=== PATIENT | female | born 1935 | race African-American/Black ===

== ENCOUNTER → 2016-08-05 | Outpatient (CLI) | payer MEDICARE, OTHER | LOC: RAD 14:50 | PROVIDERS: ATTEND Internal Medicine Medical Oncology | DX: C18.9 Malignant neoplasm of colon, unspecified (principal); C49.A0 Gastrointestinal stromal tumor, unspecified site | CPT/HCPCS: 71260; 74160; 82565 ==

== ENCOUNTER 2016-08-24 14:36 | Emergency (ER) | payer MEDICARE, OTHER ==
[2016-08-24] MEDS ORDERED: ONDANSETRON HCL INJ/PF 4 MG/2 ML SDV IV ONE (15:10)
[2016-08-24] MEDS ORDERED: NORMAL SALINE 1000 ML 1,000 ML IV ONE (15:10)
--- NOTE | 2016-08-24 15:33 | ER Document Report ---
ED GI/ - General Mode of Arrival: Medic Information source: Patient, Relative TRAVEL OUTSIDE OF THE [place] IN LAST 30 DAYS: No - HPI Patient complains to provider of: Abdominal pain, Vomiting Onset: This morning - [id number] Location: LUQ, RUQ Associated symptoms: Other - see above <AGUSTIN AMBRIZ - Last Filed: 08/24/16 15:24> <REAL CRABTREE - Last Filed: 08/24/16 19:55> - General Chief Complaint: Abdominal Pain Stated Complaint: NAUSEA AND VOMITING Notes: 80 year old female with history of Gastrointestinal Stromal Tumor presents to the ED via EMS complaining of nausea, vomiting, and bilateral upper abdominal pain that started this morning at approximately [id number]. Daughter states that the patient was seen by her primary provider and given a shot of phenegran, when the patient didn't improve EMS was called and the patient was brought to the ED. Patient states that she was vomiting on her way to the ED, and currently states that she is nauseous. Patient explains that her last bowel movement was yesterday and it was loose. Patient's granddaughter visited the patient 5 days ago and was seen in the ED yesterday for a "virus." Patient was seen in the ED in April 2016 for a subdural bleed. Patient was taken off her blood thinning medication at the time and is currently taking aspirin. (AGUSTIN AMBRIZ) - Related Data Allergies/Adverse Reactions: lisinopril [From Zestril] Allergy (Intermediate, Verified 08/24/16 15:08) Edema Past Medical History - General Information source: Patient - Social History Smoking Status: Unknown if Ever Smoked Family History: Reviewed & Not Pertinent - Past Medical History Cardiac Medical History: Reports: Hx Atrial Fibrillation, Hx Hypercholesterolemia, Hx Hypertension Endocrine Medical History: Reports: Hx Diabetes Mellitus Type 2 Malignancy Medical History: Reports: Hx Colorectal Cancer - [facility] Medical History: Reports: Hx Gastroesophageal Reflux Disease Psychiatric Medical History: Reports: Hx Depression Past Surgical History: Reports: Hx Appendectomy, Hx Bowel Surgery, Hx Hysterectomy - Immunizations Hx Diphtheria, Pertussis, Tetanus Vaccination: No Hx Pneumococcal Vaccination: 07/14/12 <AGUSTIN AMBRIZ - Last Filed: 08/24/16 15:24> Review of Systems - Review of Systems Constitutional: No symptoms reported EENT: No symptoms reported Cardiovascular: No symptoms reported Respiratory: No symptoms reported Gastrointestinal: See HPI, Abdominal pain - bilateral upper, Nausea, Vomiting, Last bowel movement - yesterday; loose Genitourinary: No symptoms reported Female Genitourinary: No symptoms reported Musculoskeletal: No symptoms reported Skin: No symptoms reported Hematologic/Lymphatic: No symptoms reported Neurological/Psychological: No symptoms reported -: Yes All other systems reviewed and negative <AGUSTIN AMBRIZ - Last Filed: 08/24/16 15:24> Physical Exam - General General appearance: Alert In distress: None - HEENT Head: Normocephalic, Atraumatic Eyes: Normal Extraocular movements intact: Yes Pupils: PERRL - Respiratory Respiratory status: No respiratory distress Breath sounds: Normal - Cardiovascular Rhythm: Regular Heart sounds: Normal auscultation - Abdominal Inspection: Normal Distension: No distension - resonate to percussion Bowel sounds: Hypoactive Tenderness: Tender - Tense and minimally tender to the upper abdomen. - Back Back: Normal - Extremities General upper extremity: Normal inspection, Normal ROM General lower extremity: Normal inspection, Normal ROM - Neurological Neuro grossly intact: Yes - Psychological Associated symptoms: Normal affect, Normal mood - Skin Skin Temperature: Warm Skin Moisture: Dry Skin Color: Normal <AGUSTIN AMBRIZ - Last Filed: 08/24/16 15:24> <REAL CRABTREE - Last Filed: 08/24/16 19:55> - Vital signs Vitals: Temp 98.5 F 08/24/16 14:55 (AGUSTIN AMBRIZ) (REAL CRABTREE) Course - Laboratory Result Diagrams: 08/24/16 14:46 08/24/16 14:46 <AGUSTIN AMBRIZ - Last Filed: 08/24/16 15:24> - Laboratory Result Diagrams: 08/24/16 14:46 08/24/16 16:20 <REAL CRABTREE - Last Filed: 08/24/16 19:55> - Re-evaluation Re-evalutation: 08/24/16 19:53 Patient reports she had large results from the enema and does feel much better. She is actually quite hungry now. (REAL CRABTREE) - Vital Signs Vital signs: Temp Pulse Resp BP Pulse Ox 98.5 F 24 H 138/73 H 96 08/24/16 14:55 08/24/16 19:01 08/24/16 19:01 08/24/16 19:01 (AGUSTIN AMBRIZ) (REAL CRABTREE) - Laboratory Laboratory results interpreted by me: 08/24/16 08/24/16 08/24/16 14:46 16:20 17:16 RBC 3.42 L Hgb 10.5 L Hct 31.9 L RDW 15.7 H Seg Neutrophils % 80.3 H Lymphocytes % 10.8 L Glucose 116 H Albumin 3.4 L Urine Protein 30 H Ur Leukocyte Esterase TRACE H (REAL CRABTREE) Discharge <AGUSTIN AMBRIZ - Last Filed: 08/24/16 15:24> <REAL CRABTREE - Last Filed: 08/24/16 19:55> - Discharge Clinical Impression: Nausea and vomiting Qualifiers: Vomiting type: unspecified Vomiting Intractability: non-intractable Qualified Code(s): R11.2 - Nausea with vomiting, unspecified Abdominal pain Qualifiers: Abdominal location: generalized Qualified Code(s): R10.84 - Generalized abdominal pain Constipation Qualifiers: Constipation type: unspecified constipation type Qualified Code(s): K59.00 - Constipation, unspecified Condition: Stable Disposition: HOME, SELF-CARE Additional Instructions: Your lab tests were normal today. Your symptoms may be due to a virus, or may all have been due to constipation. Try taking a dose of MiraLAX every day for the next week and drinking plenty of water. Follow-up with your doctor in the next few days if not continuing to improve. RETURN TO THE EMERGENCY ROOM IF ANY NEW OR WORSENING SYMPTOMS. Scribe Attestation: 08/24/16 19:55 I personally performed the services described in the documentation, reviewed and edited the documentation which was dictated to the scribe in my presence, and it accurately records my words and actions. (REAL CRABTREE) Scribe Documentation - Scribe Written by Sabiha:: Sabiha Matias, 08/24/2016 1535 acting as scribe for :: Renu <AGUSTIN AMBRIZ - Last Filed: 08/24/16 15:24>
[2016-08-24 15:35] LABS: ABSOLUTE EOSINOPHILS # (AUTO) 0.1 10^3/uL (0.0-0.6); ABSOLUTE LYMPHOCYTES (AUTO) 0.7 10^3/uL (0.5-4.7); ABSOLUTE MONOCYTES (AUTO) 0.5 10^3/uL (0.1-1.4); ABSOLUTE NEUT (AUTO) 5.5 10^3/uL (1.7-8.2); BASOPHILS % (AUTO) 0.4 % (0-2); EOSINOPHILS % (AUTO) 1.3 % (0-6); HEMATOCRIT 31.9 % (36.0-47.0); HEMOGLOBIN 10.5 g/dL (12.0-15.5); HGB HCT DIFFERENCE -0.4; LYMPHOCYTES % (AUTO) 10.8 % (13-45); MEAN CORPUSCULAR HEMOGLOBIN 30.8 pg (27.0-33.4); MEAN CORPUSCULAR VOLUME 93 fl (80-97); MONOCYTES % (AUTO) 7.2 % (3-13); RED BLOOD COUNT 3.42 10^6/uL (3.72-5.28); RED CELL DISTRIBUTION WIDTH 15.7 % (11.5-14.0); SEGMENTED NEUTROPHILS % (AUTO) 80.3 % (42-78); WHITE BLOOD COUNT 6.9 10^3/uL (4.0-10.5)
[2016-08-24 17:02] LABS: ALANINE AMINOTRANSFERASE 29 U/L (9-52); ALBUMIN 3.4 g/dL (3.5-5.0); ALKALINE PHOSPHATASE 69 U/L (38-126); ANION GAP 11 (5-19); ASPARTATE AMINO TRANSFERASE 25 U/L (14-36); BILIRUBIN,TOTAL 0.4 mg/dL (0.2-1.3); BLOOD UREA NITROGEN 11 mg/dL (7-20); CALCIUM 9.2 mg/dL (8.4-10.2); CARBON DIOXIDE 27 mmol/L (22-30); CHLORIDE 107 mmol/L (98-107); CREATININE RESULT 0.79 mg/dL (0.52-1.25); LIPASE 152.6 U/L (23-300); MAGNESIUM 2.1 mg/dL (1.6-2.3); POTASSIUM 3.6 mmol/L (3.6-5.0); SODIUM 144.5 mmol/L (137-145); TOTAL PROTEIN 6.3 g/dL (6.3-8.2)
[2016-08-24 17:03] LABS: GLUCOSE 116 mg/dL (75-110)
[2016-08-24] MEDS ORDERED: MINERAL OIL 30 ML UDCUP PR ONE (17:47)
[2016-08-24 18:07] LABS: APPEARANCE,URINE SLIGHTLY-CLOUDY; BILIRUBIN,URINE NEGATIVE (NEGATIVE); GLUCOSE, URINE NEGATIVE (NEGATIVE); KETONES,URINE NEGATIVE (NEGATIVE); LEUKOCYTE ESTERASE,URINE TRACE (NEGATIVE); NITRITE,URINE NEGATIVE (NEGATIVE); PROTEIN,URINE 30 mg/dL (NEGATIVE); URINE SPECIFIC GRAVITY 1.012; UROBILINOGEN,URINE NEGATIVE mg/dL (<2.0)
[2016-08-24 20:31] VITALS: BP 141/62
== END 2016-08-24 20:25 | disposition home or self-care (01) ==
LOC: ER 14:36
DX: K59.00 Constipation, unspecified (principal); R11.2 Nausea with vomiting, unspecified; R10.84 Generalized abdominal pain
CPT/HCPCS: 99284; 96361; 96374; 36415; 83690; 83735; 85025; 80053; 81001; 74022; J3490; J2405; J7030

== ENCOUNTER 2016-09-09 12:19 | Emergency (ER) | payer MEDICARE, OTHER ==
--- NOTE | 2016-09-09 12:34 | ER Document Report ---
ED Medical Screen (RME) - General Chief Complaint: Leg Swelling Stated Complaint: WEAKNESS Mode of Arrival: Wheelchair Information source: Patient Notes: 80 y/o F presents to ED referred by pcp for generalized weakness and bilateral lower leg pain and swelling. Denies fever or chest pain. I have greeted and performed a rapid initial assessment of this patient. A comprehensive ED assessment and evaluation of the patient, analysis of test results and completion of the medical decision making process will be conducted by additional ED providers. TRAVEL OUTSIDE OF THE [place] IN LAST 30 DAYS: No - Related Data Allergies/Adverse Reactions: lisinopril [From Zestril] Allergy (Intermediate, Verified 09/09/16 12:29) Edema Past Medical History - Social History Chew tobacco use (# tins/day): No Frequency of alcohol use: None Drug Abuse: None Family history: None - Past Medical History Cardiac Medical History: Reports: Hx Atrial Fibrillation, Hx Hypercholesterolemia, Hx Hypertension Denies: Hx Coronary Artery Disease, Hx Heart Attack Pulmonary Medical History: Denies: Hx Asthma, Hx Bronchitis, Hx COPD, Hx Pneumonia Neurological Medical History: Denies: Hx Cerebrovascular Accident, Hx Seizures Endocrine Medical History: Reports: Hx Diabetes Mellitus Type 2 Renal/ Medical History: Denies: Hx Peritoneal Dialysis Malignancy Medical History: 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 Denies: Hx Hepatitis, Hx Hiatal Hernia, Hx Ulcer Musculoskeltal Medical History: Denies Hx Arthritis Psychiatric Medical History: Reports: Hx Depression Infectious Medical History: Denies: Hx Hepatitis Past Surgical History: Reports: Hx Appendectomy, Hx Bowel Surgery, Hx Hysterectomy. Denies: Hx Mastectomy, Hx Open Heart Surgery, Hx Pacemaker - Immunizations Hx Diphtheria, Pertussis, Tetanus Vaccination: No Physical Exam - Vital signs Vitals: Temp Pulse Resp BP Pulse Ox 97.8 F 91 16 121/50 L 98 09/09/16 12:09/09/16 12:09/09/16 12:09/09/16 12:09/09/16 12:29 - General General appearance: Appears well, Alert In distress: None - Respiratory Respiratory status: No respiratory distress Course - Vital Signs Vital signs: Temp Pulse Resp BP Pulse Ox 97.8 F 91 16 121/50 L 98 09/09/16 12:09/09/16 12:29 09/09/16 12:29 09/09/16 12:29 09/09/16 12:29
--- NOTE | 2016-09-09 13:11 | ER Document Report ---
ED Extremity Problem, Lower - General Chief Complaint: Leg Swelling Stated Complaint: WEAKNESS Mode of Arrival: Wheelchair Information source: Patient, Relative Notes: Patient presents complaining of bilateral lower extremity swelling off and on for the past 2 months. Patient also states she's had leg pain off and on for the past 2 months. Patient was seen her technology architect today to have her nails trimmed and her technology architect was concerned about the swelling and wanted her to come for a Doppler study of the right lower extremity. Patient denies any chest pain or shortness of breath. TRAVEL OUTSIDE OF THE [place] IN LAST 30 DAYS: No - HPI Patient complains to provider of: Pain, Swelling Location: Leg Occurred: Other - 2 months Quality of pain: Achy Pain Level: 1 Context: denies: Recent immobilization, Recent surgery, Recent travel Recent injury: No Associated symptoms: denies: Chest pain, Chills, Fainting, Fever, Painful ambulation, Unable to bear weight Exacerbated by: Nothing Relieved by: Nothing - Related Data Allergies/Adverse Reactions: lisinopril [From Zestril] Allergy (Intermediate, Verified 09/09/16 12:29) Edema Past Medical History - General Information source: Patient - Social History Smoking Status: Never Smoker Chew tobacco use (# tins/day): No Frequency of alcohol use: None Drug Abuse: None Occupation: none Lives with: Family Family History: Reviewed & Not Pertinent Patient has suicidal ideation: No Patient has homicidal ideation: No - Past Medical History Cardiac Medical History: Reports: Hx Atrial Fibrillation, Hx Hypercholesterolemia, Hx Hypertension Denies: Hx Coronary Artery Disease, Hx Heart Attack Pulmonary Medical History: Denies: Hx Asthma, Hx Bronchitis, Hx COPD, Hx Pneumonia Neurological Medical History: Denies: Hx Cerebrovascular Accident, Hx Seizures Endocrine Medical History: Reports: Hx Diabetes Mellitus Type 2 Renal/ Medical History: Denies: Hx Peritoneal Dialysis Malignancy Medical History: 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 Denies: Hx Hepatitis, Hx Hiatal Hernia, Hx Ulcer Musculoskeltal Medical History: Denies Hx Arthritis Psychiatric Medical History: Reports: Hx Depression Infectious Medical History: Denies: Hx Hepatitis Past Surgical History: Reports: Hx Appendectomy, Hx Bowel Surgery, Hx Hysterectomy. Denies: Hx Mastectomy, Hx Open Heart Surgery, Hx Pacemaker - Immunizations Hx Diphtheria, Pertussis, Tetanus Vaccination: No Hx Pneumococcal Vaccination: 07/14/12 Review of Systems - Review of Systems Constitutional: No symptoms reported. denies: Fever, Recent illness EENT: No symptoms reported Cardiovascular: Edema. denies: Chest pain, Dizziness, Lightheaded Respiratory: No symptoms reported. denies: Cough, Short of breath Gastrointestinal: No symptoms reported. denies: Abdominal pain, Diarrhea, Nausea, Vomiting Genitourinary: No symptoms reported Female Genitourinary: No symptoms reported Musculoskeletal: Muscle pain - Bilateral lower extremity. denies: Back pain Skin: No symptoms reported Hematologic/Lymphatic: No symptoms reported Neurological/Psychological: No symptoms reported Physical Exam - Vital signs Vitals: Temp Pulse Resp BP Pulse Ox 97.8 F 91 16 121/50 L 98 09/09/16 12:29 09/09/16 12:29 09/09/16 12:29 09/09/16 12:29 09/09/16 12:29 - General General appearance: Appears well, Alert In distress: None - HEENT Head: Normocephalic, Atraumatic Nasal: Normal Mouth/Lips: Normal Mucous membranes: Normal Neck: Normal, Supple. No: Lymphadenopathy - Respiratory Respiratory status: No respiratory distress Chest status: Nontender Breath sounds: Normal. No: Rales, Rhonchi, Stridor, Wheezing Chest palpation: Normal - Cardiovascular Rhythm: Regular Heart sounds: S1 appreciated, S2 appreciated Murmur: No - Abdominal Inspection: Obese Bowel sounds: Normal Tenderness: Nontender - Back Back: Normal. No: CVA tenderness, Vertebra tenderness - Extremities General upper extremity: Normal inspection, Normal ROM General lower extremity: Edema - 2+ bilateral lower extremity, Normal ROM - Neurological Neuro grossly intact: Yes Cognition: Normal Luis Felipe Coma Scale Eye Opening: Spontaneous Luis Felipe Coma Scale Verbal: Oriented Luis Felipe Coma Scale Motor: Obeys Commands [place] Coma Scale Total: 15 - Psychological Associated symptoms: Normal affect, Normal mood - Skin Skin Temperature: Warm Skin Moisture: Dry Course - Re-evaluation Re-evalutation: 09/09/16 13:[address] Abbasi regarding patient presentation and diagnostic evaluation. Recommends obtaining chest x-ray, BNP as well as bilateral lower extremity Doppler 09/09/16 16:00 Dr. Hdz called stating that Doppler study was negative for DVT. 09/09/16 16:[address] Piramzadian regarding patient's diagnostic test results agrees with discharge plan of care. Family at bedside, discussed with daughter results of patient's diagnostic evaluation. Discussed plan of care with patient and daughter. Recommend decrease in sodium in diet and wearing support hose to help with peripheral edema. - Vital Signs Vital signs: Temp Pulse Resp BP Pulse Ox 98.5 F 89 18 120/54 L 99 09/09/16 16:49 09/09/16 16:49 09/09/16 16:49 09/09/16 16:49 09/09/16 16:49 - Laboratory Result Diagrams: 09/09/16 12:35 09/09/16 12:35 Laboratory results interpreted by me: 09/09/16 09/09/16 09/09/16 12:35 12:35 12:40 RBC 3.20 L Hgb 9.9 L Hct 29.9 L RDW 15.5 H Est GFR (Non-Af Amer) 57 L Urine Protein 30 H Ur Leukocyte Esterase TRACE H Labs- Entire Visit 09/09/16 09/09/16 09/09/16 12:35 12:35 12:40 WBC 4.5 RBC 3.20 L Hgb 9.9 L Hct 29.9 L MCV 93 MCH 30.9 MCHC 33.1 RDW 15.5 H Plt Count 342 Seg Neutrophils % 59.4 Lymphocytes % 26.8 Monocytes % 8.4 Eosinophils % 4.3 Basophils % 1.1 Absolute Neutrophils 2.6 Absolute Lymphocytes 1.2 Absolute Monocytes 0.4 Absolute Eosinophils 0.2 Absolute Basophils 0.0 PT INR APTT Sodium 142.6 Potassium 3.6 Chloride 102 Carbon Dioxide 29 Anion Gap 12 BUN 10 Creatinine 0.95 Est GFR ( Amer) > 60 Est GFR (Non-Af Amer) 57 L Glucose 99 Calcium 9.6 Total Bilirubin 0.5 Direct Bilirubin 0.0 AST 27 ALT 28 Alkaline Phosphatase 58 NT-Pro-B Natriuret Pep Total Protein 6.3 Albumin 3.8 Urine Color YELLOW Urine Appearance SLIGHTLY-CLOUDY Urine pH 5.0 Ur Specific [place] 1.013 Urine Protein 30 H Urine Glucose (UA) NEGATIVE Urine Ketones NEGATIVE Urine Blood NEGATIVE Urine Nitrite NEGATIVE Urine Bilirubin NEGATIVE Urine Urobilinogen NEGATIVE Ur Leukocyte Esterase TRACE H Urine WBC (Auto) 1 Urine RBC (Auto) 0 Squamous Epi Cells Auto 1 Urine Mucus (Auto) RARE Urine Ascorbic Acid NEGATIVE 09/09/16 09/09/16 12:40 12:40 WBC RBC Hgb Hct MCV MCH MCHC RDW Plt Count Seg Neutrophils % Lymphocytes % Monocytes % Eosinophils % Basophils % Absolute Neutrophils Absolute Lymphocytes Absolute Monocytes Absolute Eosinophils Absolute Basophils PT 14.0 INR 1.04 APTT 29.7 Sodium Potassium Chloride Carbon Dioxide Anion Gap BUN Creatinine Est GFR ( Amer) Est GFR (Non-Af Amer) Glucose Calcium Total Bilirubin Direct Bilirubin AST ALT Alkaline Phosphatase NT-Pro-B Natriuret Pep 171 Total Protein Albumin Urine Color Urine Appearance Urine pH Ur Specific [place] Urine Protein Urine Glucose (UA) Urine Ketones Urine Blood Urine Nitrite Urine Bilirubin Urine Urobilinogen Ur Leukocyte Esterase Urine WBC (Auto) Urine RBC (Auto) Squamous Epi Cells Auto Urine Mucus (Auto) Urine Ascorbic Acid - Diagnostic Test Radiology reviewed: Reports reviewed Discharge - Discharge Clinical Impression: Peripheral edema Condition: Stable Disposition: HOME, SELF-CARE Instructions: Edema, Peripheral ([facility]) Additional Instructions: Return immediately for any new or worsening symptoms Followup with your primary care provider, call tomorrow to make a followup appointment Follow up with Dr. Chicas for recheck. Your Doppler test did not show any blood clots in your lower extremities. Referrals: DONG CHICAS MD [Primary Care Provider] - Follow up tomorrow
[2016-09-09 13:14] LABS: ABSOLUTE EOSINOPHILS # (AUTO) 0.2 10^3/uL (0.0-0.6); ABSOLUTE LYMPHOCYTES (AUTO) 1.2 10^3/uL (0.5-4.7); ABSOLUTE MONOCYTES (AUTO) 0.4 10^3/uL (0.1-1.4); ABSOLUTE NEUT (AUTO) 2.6 10^3/uL (1.7-8.2); BASOPHILS % (AUTO) 1.1 % (0-2); EOSINOPHILS % (AUTO) 4.3 % (0-6); HEMATOCRIT 29.9 % (36.0-47.0); HEMOGLOBIN 9.9 g/dL (12.0-15.5); HGB HCT DIFFERENCE -0.2; LYMPHOCYTES % (AUTO) 26.8 % (13-45); MEAN CORPUSCULAR HEMOGLOBIN 30.9 pg (27.0-33.4); MEAN CORPUSCULAR HGB CONC 33.1 g/dL (32.0-36.0); MEAN CORPUSCULAR VOLUME 93 fl (80-97); MONOCYTES % (AUTO) 8.4 % (3-13); RED CELL DISTRIBUTION WIDTH 15.5 % (11.5-14.0); SEGMENTED NEUTROPHILS % (AUTO) 59.4 % (42-78); WHITE BLOOD COUNT 4.5 10^3/uL (4.0-10.5)
[2016-09-09 13:26] LABS: APPEARANCE,URINE SLIGHTLY-CLOUDY; BILIRUBIN,URINE NEGATIVE (NEGATIVE); GLUCOSE, URINE NEGATIVE (NEGATIVE); KETONES,URINE NEGATIVE (NEGATIVE); LEUKOCYTE ESTERASE,URINE TRACE (NEGATIVE); NITRITE,URINE NEGATIVE (NEGATIVE); PROTEIN,URINE 30 mg/dL (NEGATIVE); URINE SPECIFIC GRAVITY 1.013; UROBILINOGEN,URINE NEGATIVE mg/dL (<2.0)
[2016-09-09 13:37] LABS: PARTIAL THROMBOPLASTIN TIME 29.7 SEC (23.5-35.8)
[2016-09-09 13:48] LABS: ALANINE AMINOTRANSFERASE 28 U/L (9-52); ALBUMIN 3.8 g/dL (3.5-5.0); ALKALINE PHOSPHATASE 58 U/L (38-126); ANION GAP 12 (5-19); ASPARTATE AMINO TRANSFERASE 27 U/L (14-36); BILIRUBIN,TOTAL 0.5 mg/dL (0.2-1.3); BLOOD UREA NITROGEN 10 mg/dL (7-20); CALCIUM 9.6 mg/dL (8.4-10.2); CARBON DIOXIDE 29 mmol/L (22-30); CHLORIDE 102 mmol/L (98-107); CREATININE RESULT 0.95 mg/dL (0.52-1.25); GLUCOSE 99 mg/dL (75-110); POTASSIUM 3.6 mmol/L (3.6-5.0); SODIUM 142.6 mmol/L (137-145); TOTAL PROTEIN 6.3 g/dL (6.3-8.2)
[2016-09-09 16:57] VITALS: BP 120/54
--- NOTE | 2016-09-10 12:51 | XCELERA REPORT ---
[address] [address] Lower Extremity Venous Evaluation Name: DAVID MANUEL Age: 80 yrs Gender: Female : 1935 Patient Status: Emergency Patient Location: ER Study Date: 09/09/2016 04:09 PM Procedure: Color flow and duplex imaging bilaterally of the veins of the lower extremities as well as the Common Femoral veins. Reason For Study: LE swelling Ordering Physician: JOYCE PORTILLO Performed By: Andres Bo Right Sided Venous Evaluation Normal vessel filling wall to wall, compression and augmentation as well as Colour flow down to the infrageniculate veins. Left Sided Venous Evaluation Normal vessel filling wall to wall, compression and augmentation as well as Colour flow down to the infrageniculate veins. Critical Findings Called in to the ER. Study was repeated data to data loss. Interpretation Summary Normal compression, patency, spontaneous and phasic flow of the bilateral lower extremity veins. : JOYCE PORTILLO > Fuad Hdz
== END 2016-09-09 16:57 | disposition home or self-care (01) ==
LOC: ER 12:19
DX: R60.9 Edema, unspecified (principal); M79.89 Other specified soft tissue disorders; R53.1 Weakness
CPT/HCPCS: 36415; 71020; 80053; 81001; 83880; 85025; 85610; 85730; 93970; 99285

== ENCOUNTER → 2016-10-21 | Outpatient (CLI) | payer MEDICARE, OTHER | LOC: WI 14:20 | PROVIDERS: ATTEND Internal Medicine | DX: Z12.31 Encounter for screening mammogram for malignant neoplasm of breast (principal) | CPT/HCPCS: 77067; G0202 ==

== ENCOUNTER 2017-01-18 15:20 | Emergency (ER) | payer MEDICARE, OTHER ==
[2017-01-18] MEDS ORDERED: NORMAL SALINE 1000 ML 1,000 ML IV PRN (15:49)
[2017-01-18] MEDS ORDERED: ONDANSETRON 4 MG TAB.RAPDIS PO ONE (15:49)
--- NOTE | 2017-01-18 15:55 | ER Document Report ---
ED Medical Screen (RME) - General Chief Complaint: Vomiting Stated Complaint: NAUSEA Time Seen by Provider: 01/18/17 15:40 Mode of Arrival: Wheelchair Information source: Patient, Parent Notes: This is an 81-year-old female history of dyslipidemia, hypertension, atrial fibrillation, subdural bleed (in the setting of anticoagulation), colon cancer who is currently receiving chemotherapy for gastric carcinoma(? Per daughter). Is currently followed by Dr. Bullock. Patient presents to the emergency room with vomiting and generalized weakness. Dr physician: Dr. Kumar TRAVEL OUTSIDE OF THE [place] IN LAST 30 DAYS: No - Related Data Allergies/Adverse Reactions: lisinopril [From Zestril] Allergy (Intermediate, Verified 01/18/17 15:22) Edema Past Medical History - Social History Family history: None - Past Medical History Cardiac Medical History: Reports: Hx Atrial Fibrillation, Hx Hypercholesterolemia, Hx Hypertension Denies: Hx Coronary Artery Disease, Hx Heart Attack Pulmonary Medical History: Denies: Hx Asthma, Hx Bronchitis, Hx COPD, Hx Pneumonia Neurological Medical History: Denies: Hx Cerebrovascular Accident, Hx Seizures Endocrine Medical History: Reports: Hx Diabetes Mellitus Type 2 Renal/ Medical History: Denies: Hx Peritoneal Dialysis Malignancy Medical History: 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 Denies: Hx Hepatitis, Hx Hiatal Hernia, Hx Ulcer Musculoskeltal Medical History: Denies Hx Arthritis Psychiatric Medical History: Reports: Hx Depression Infectious Medical History: Denies: Hx Hepatitis Past Surgical History: Reports: Hx Appendectomy, Hx Bowel Surgery, Hx Hysterectomy. Denies: Hx Mastectomy, Hx Open Heart Surgery, Hx Pacemaker - Immunizations Hx Diphtheria, Pertussis, Tetanus Vaccination: No Physical Exam - Vital signs Vitals: Temp Pulse Resp BP Pulse Ox 98.5 F 79 14 126/48 H 96 01/18/17 15:22 01/18/17 15:22 01/18/17 15:22 01/18/17 15:22 01/18/17 15:22 Course - Vital Signs Vital signs: Temp Pulse Resp BP Pulse Ox 98.5 F 79 14 126/48 H 96 01/18/17 15:22 01/18/17 15:22 01/18/17 15:22 01/18/17 15:22 01/18/17 15:22
[2017-01-18 16:26] LABS: ABSOLUTE EOSINOPHILS # (AUTO) 0.2 10^3/uL (0.0-0.6); ABSOLUTE LYMPHOCYTES (AUTO) 1.1 10^3/uL (0.5-4.7); ABSOLUTE MONOCYTES (AUTO) 0.4 10^3/uL (0.1-1.4); ABSOLUTE NEUT (AUTO) 2.2 10^3/uL (1.7-8.2); BASOPHILS % (AUTO) 1.1 % (0-2); HEMATOCRIT 32.2 % (36.0-47.0); HEMOGLOBIN 10.5 g/dL (12.0-15.5); HGB HCT DIFFERENCE -0.7; LYMPHOCYTES % (AUTO) 28.6 % (13-45); MEAN CORPUSCULAR HEMOGLOBIN 31.1 pg (27.0-33.4); MEAN CORPUSCULAR HGB CONC 32.5 g/dL (32.0-36.0); MEAN CORPUSCULAR VOLUME 95 fl (80-97); RED BLOOD COUNT 3.38 10^6/uL (3.72-5.28); RED CELL DISTRIBUTION WIDTH 14.5 % (11.5-14.0); SEGMENTED NEUTROPHILS % (AUTO) 56.3 % (42-78); WHITE BLOOD COUNT 3.9 10^3/uL (4.0-10.5)
[2017-01-18 16:43] LABS: ALANINE AMINOTRANSFERASE 25 U/L (9-52); ALBUMIN 3.8 g/dL (3.5-5.0); ALKALINE PHOSPHATASE 53 U/L (38-126); ANION GAP 9 (5-19); ASPARTATE AMINO TRANSFERASE 29 U/L (14-36); BILIRUBIN,DIRECT 0.3 mg/dL (0.0-0.4); BILIRUBIN,TOTAL 0.5 mg/dL (0.2-1.3); BLOOD UREA NITROGEN 8 mg/dL (7-20); CALCIUM 9.2 mg/dL (8.4-10.2); CARBON DIOXIDE 28 mmol/L (22-30); CHLORIDE 106 mmol/L (98-107); CREATININE RESULT 0.93 mg/dL (0.52-1.25); GLUCOSE 107 mg/dL (75-110); MAGNESIUM 2.2 mg/dL (1.6-2.3); POTASSIUM 3.7 mmol/L (3.6-5.0); SODIUM 143.4 mmol/L (137-145); TOTAL PROTEIN 6.8 g/dL (6.3-8.2)
--- NOTE | 2017-01-18 16:47 | ER Document Report ---
ED General - General Mode of Arrival: Wheelchair Information source: Patient TRAVEL OUTSIDE OF THE [place] IN LAST 30 DAYS: No - HPI Onset: Other - Refer to HPI notes <JENNIFER SESAY - Last Filed: 01/18/17 19:21> <TATYLUCERO ANTOINETTE - Last Filed: 01/18/17 22:27> - General Chief Complaint: Vomiting Stated Complaint: NAUSEA Time Seen by Provider: 01/18/17 15:40 Notes: Patient is an 81 year old female presenting to the emergency department for dizziness, room spinning sensation, weakness, nausea and vomiting. Patient states she feels off balance when walking and has some tightness in her legs. Patient's daughter states the patient has gastrointestinal ulcers, colon cancer , atrial fibrillation, hypertension, and dyslipidemia. Patient is followed by Dr. Bullock. Patient's daughter also states that she was flown to [facility] in May for a subcranial head bleed; patient is taking Coumadin for such. (JENNIFER SESAY) - Related Data Allergies/Adverse Reactions: lisinopril [From Zestril] Allergy (Intermediate, Verified 01/18/17 15:22) Edema Past Medical History - General Information source: Patient, Relative - Social History Smoking Status: Unknown if Ever Smoked Family History: None Patient has suicidal ideation: No Patient has homicidal ideation: No - Past Medical History Cardiac Medical History: Reports: Hx Atrial Fibrillation, Hx Hypercholesterolemia, Hx Hypertension Endocrine Medical History: Reports: Hx Diabetes Mellitus Type 2 Malignancy Medical History: Reports: Hx Colorectal Cancer - GIST GI Medical History: Reports: Hx Gastroesophageal Reflux Disease Psychiatric Medical History: Reports: Hx Depression Past Surgical History: Reports: Hx Appendectomy, Hx Bowel Surgery, Hx Hysterectomy - Immunizations Hx Diphtheria, Pertussis, Tetanus Vaccination: No Hx Pneumococcal Vaccination: 07/14/12 <JENNIFER SESAY - Last Filed: 01/18/17 19:21> Review of Systems - Review of Systems Constitutional: No symptoms reported EENT: No symptoms reported Cardiovascular: No symptoms reported Respiratory: No symptoms reported Gastrointestinal: No symptoms reported Genitourinary: No symptoms reported Female Genitourinary: No symptoms reported Musculoskeletal: No symptoms reported Skin: No symptoms reported Hematologic/Lymphatic: No symptoms reported Neurological/Psychological: See HPI, Weakness -: Yes All other systems reviewed and negative <JENNIFER SESAY - Last Filed: 01/18/17 19:21> Physical Exam - Vital signs Interpretation: Normal - General General appearance: Alert, Other - Appears uncomfortable In distress: None - HEENT Head: Normocephalic, Atraumatic Eyes: Normal Pupils: PERRL - Respiratory Respiratory status: No respiratory distress Chest status: Nontender Breath sounds: Normal Chest palpation: Normal - Cardiovascular Rhythm: Regular Heart sounds: Normal auscultation Murmur: No - Abdominal Inspection: Normal Distension: No distension Bowel sounds: Normal Tenderness: Nontender Organomegaly: No organomegaly - Back Back: Normal, Nontender - Extremities General upper extremity: Normal inspection, Nontender, Normal color, Normal ROM , Normal temperature General lower extremity: Normal inspection, Nontender, Normal color, Normal ROM , Normal temperature, Normal weight bearing. No: Vaishali's sign - Neurological Neuro grossly intact: Yes Cognition: Normal Orientation: AAOx4 Luis Felipe Coma Scale Eye Opening: Spontaneous [place] Coma Scale Verbal: Oriented [place] Coma Scale Motor: Obeys Commands Luis Felipe Coma Scale Total: 15 Speech: Normal Motor strength normal: LUE, RUE, LLE, RLE Sensory: Normal - Psychological Associated symptoms: Normal affect, Normal mood - Skin Skin Temperature: Warm Skin Moisture: Dry Skin Color: Normal <LUCERO POSEY - Last Filed: 01/18/17 22:27> - Vital signs Vitals: Temp Pulse Resp BP Pulse Ox 98.5 F 79 14 126/48 H 96 01/18/17 15:22 01/18/17 15:22 01/18/17 15:22 01/18/17 15:22 01/18/17 15:22 Course - Laboratory Result Diagrams: 01/18/17 16:15 01/18/17 16:15 <JENNIFER SESAY - Last Filed: 01/18/17 19:21> - Laboratory Result Diagrams: 01/18/17 16:15 01/18/17 16:15 <LUCERO POSEY - Last Filed: 01/18/17 22:27> - Re-evaluation Re-evalutation: 01/18/17 19:27 Patient is an 81-year-old female who comes in with nausea and dizziness. Patient is on chemotherapy and states that she gets like this after she takes chemo. Patient is taking meclizine at home without relief. Patient received fluids and Zofran here is feeling better. Patient is at her baseline. She does not feel dizzy or nauseated anymore. She is able to ambulate to the bathroom without difficulty and is able to keep down p.o. fluids. Patient and her daughter are comfortable with the patient going home. She is to follow-up with her primary and her oncologist as scheduled. Return immediately if any worsening or concerning symptoms. She will be discharged home with prescription for Zofran. Understands and agrees with plan. Stable at time of discharge. (LUCERO POSEY) - Vital Signs Vital signs: Temp Pulse Resp BP Pulse Ox 97.9 F 70 14 120/46 L 95 01/18/17 19:27 01/18/17 19:27 01/18/17 19:27 01/18/17 19:27 01/18/17 19:50 - Laboratory Laboratory results interpreted by me: 01/18/17 01/18/17 01/18/17 16:15 16:15 16:15 WBC 3.9 L RBC 3.38 L Hgb 10.5 L Hct 32.2 L RDW 14.5 H Est GFR (Non-Af Amer) 58 L Creatine Kinase 229 H Discharge <JENNIFER SESAY - Last Filed: 01/18/17 19:21> <LUCERO POSEY - Last Filed: 01/18/17 22:27> - Discharge Clinical Impression: Chemotherapy induced nausea and vomiting Condition: Stable Disposition: HOME, SELF-CARE Instructions: Vomiting ([facility]) Prescriptions: Ondansetron [Zofran Odt] 8 mg PO Q6HP PRN #30 tab.rapdis PRN Reason: Referrals: DONG CHICAS MD [Primary Care Provider] - Follow up tomorrow Scribe Attestation: 01/18/17 22:27 I personally performed the services described in the documentation, reviewed and edited the documentation which was dictated to the scribe in my presence, and it accurately records my words and actions. (LUCERO POSEY) Scribe Documentation - Scribe Written by Sabiha:: Sabiha Smith, 01/18/2017 19:18 acting as scribe for :: Taty <JENNIFER SESAY - Last Filed: 01/18/17 19:21>
--- NOTE | 2017-01-18 17:23 | RADIOLOGY REPORT (SQ) ---
EXAM DESCRIPTION: CT HEAD WITHOUT COMPLETED DATE/TIME: 01/18/2017 5:09 pm REASON FOR STUDY: dizziness, nausea COMPARISON: 05/31/2016, 05/01/2016, 04/30/2016, 11/05/2015, 04/10/2009 TECHNIQUE: Axial images acquired through the brain without intravenous contrast. Images reviewed wi th bone, brain and subdural windows. Images stored on PACS. All CT scanners at this facility use dose modulation, iterative reconstruction, and/or weight based d osing when appropriate to reduce radiation dose to as low as reasonably achievable (ALARA). [facility]: Dose Right [facility]: CareDose [facility]: Dose Right [facility]: Teradose 4D [facility]: Volusion RADIATION DOSE: Up-to-date CT equipment and radiation dose reduction techniques were employed. CTDIv ol: 64.6 mGy. DLP: 1163 mGy-cm. mGy. LIMITATIONS: None. FINDINGS: VENTRICLES: Normal size and contour. CEREBRUM: No masses. No hemorrhage. No midline shift. Normal enrique/white matter differentiation. N o evidence for acute infarction. CEREBELLUM: No masses. No hemorrhage. No alteration of density. No evidence for acute infarction. EXTRAAXIAL SPACES: No fluid collections. No masses. ORBITS AND GLOBE: No intra- or extraconal masses. Normal contour of globe without masses. CALVARIUM: No fracture. PARANASAL SINUSES: No fluid or mucosal thickening. SOFT TISSUES: No mass or hematoma. OTHER: No other significant finding. IMPRESSION: NORMAL BRAIN CT WITHOUT CONTRAST. TECHNICAL DOCUMENTATION: JOB ID: [id number] Quality ID # [id number]: Final reports with documentation of one or more dose reduction techniques (e.g., Au tomated exposure control, adjustment of the mA and/or kV according to patient size, use of iterative reconstruction technique) 2010 [employer]- All Rights Reserved
[2017-01-18 18:19] LABS: CREATINE KINASE MB 1.81 ng/mL (<4.55)
[2017-01-18 18:20] LABS: TROPONIN I < 0.012 ng/mL
[2017-01-18] MEDS ORDERED: ONDANSETRON ODT 4 MG TAB (6 TAB/DSPK) PO PRN (19:25)
[2017-01-18 19:44] VITALS: BP 120/46
== END 2017-01-18 19:55 | disposition home or self-care (01) ==
LOC: ER 15:20
DX: R11.2 Nausea with vomiting, unspecified (principal); T45.1X5A Adverse effect of antineoplastic and immunosuppressive drugs, initial encounter; C18.9 Malignant neoplasm of colon, unspecified; R42 Dizziness and giddiness; R53.1 Weakness; K28.9 Gastrojejunal ulcer, unspecified as acute or chronic, without hemorrhage or perforation; E78.5 Hyperlipidemia, unspecified; I10 Essential (primary) hypertension; E11.9 Type 2 diabetes mellitus without complications; I48.91 Unspecified atrial fibrillation; Z79.01 Long term (current) use of anticoagulants; Z88.8 Allergy status to other drugs, medicaments and biological substances
CPT/HCPCS: 99284; 96360; 36415; 82553; 82550; 83735; 85025; 80053; 84484; 70450; A9270 ×2; J7030; S0119

== ENCOUNTER → 2017-08-09 | Outpatient (CLI) | payer MEDICARE, OTHER ==
[2017-08-09 10:09] LABS: ABSOLUTE EOSINOPHILS # (AUTO) 0.1 10^3/uL (0.0-0.6); ABSOLUTE LYMPHOCYTES (AUTO) 1.4 10^3/uL (0.5-4.7); ABSOLUTE MONOCYTES (AUTO) 0.4 10^3/uL (0.1-1.4); ABSOLUTE NEUT (AUTO) 2.4 10^3/uL (1.7-8.2); BASOPHILS % (AUTO) 0.5 % (0-2); EOSINOPHILS % (AUTO) 2.8 % (0-6); HEMATOCRIT 26.5 % (36.0-47.0); LYMPHOCYTES % (AUTO) 31.9 % (13-45); MEAN CORPUSCULAR HEMOGLOBIN 31.9 pg (27.0-33.4); MEAN CORPUSCULAR HGB CONC 33.8 g/dL (32.0-36.0); MEAN CORPUSCULAR VOLUME 95 fl (80-97); MONOCYTES % (AUTO) 9.4 % (3-13); PLATELET COUNT 203 10^3/uL (150-450); RED BLOOD COUNT 2.81 10^6/uL (3.72-5.28); RED CELL DISTRIBUTION WIDTH 13.6 % (11.5-14.0); SEGMENTED NEUTROPHILS % (AUTO) 55.4 % (42-78); TOTAL CELLS COUNTED % (AUTO) 100 %; WHITE BLOOD COUNT 4.3 10^3/uL (4.0-10.5)
[2017-08-09 10:16] LABS: APPEARANCE,URINE CLOUDY; BILIRUBIN,URINE NEGATIVE (NEGATIVE); COLOR,URINE YELLOW; GLUCOSE, URINE NEGATIVE (NEGATIVE); KETONES,URINE NEGATIVE (NEGATIVE); LEUKOCYTE ESTERASE,URINE MODERATE (NEGATIVE); NITRITE,URINE NEGATIVE (NEGATIVE); PROTEIN,URINE 30 mg/dL (NEGATIVE); URINE SPECIFIC GRAVITY 1.015; UROBILINOGEN,URINE NEGATIVE mg/dL (<2.0)
[2017-08-09 10:35] LABS: ALANINE AMINOTRANSFERASE 30 U/L (9-52); ALBUMIN 3.5 g/dL (3.5-5.0); ALKALINE PHOSPHATASE 46 U/L (38-126); ANION GAP 10 (5-19); ASPARTATE AMINO TRANSFERASE 36 U/L (14-36); BILIRUBIN,DIRECT 0.1 mg/dL (0.0-0.4); BILIRUBIN,TOTAL 0.2 mg/dL (0.2-1.3); BLOOD UREA NITROGEN 14 mg/dL (7-20); CALCIUM 9.1 mg/dL (8.4-10.2); CARBON DIOXIDE 28 mmol/L (22-30); CHLORIDE 105 mmol/L (98-107); CHOLESTEROL 110.15 mg/dL (0-200); GLUCOSE 106 mg/dL (75-110); POTASSIUM 3.9 mmol/L (3.6-5.0); SODIUM 142.8 mmol/L (137-145); TOTAL PROTEIN 5.9 g/dL (6.3-8.2); TRIGLYCERIDES 132 mg/dL (<150); URIC ACID 4.6 mg/dL (2.5-7.5)
[2017-08-09 10:46] LABS: DIRECT LDL 53 mg/dL (<100); FREE T4 (FREE THYROXINE) 1.03 ng/dL (0.78-2.19)
[2017-08-09 11:00] LABS: THYROID STIMULATING HORMONE 7.65 uIU/mL (0.47-4.68)
[2017-08-11 04:36] LABS: CREATININE URINE 168.6 mg/dL (Not Estab.)
== END ==
LOC: OD 08:42
PROVIDERS: ATTEND Internal Medicine
DX: E11.9 Type 2 diabetes mellitus without complications (principal)
CPT/HCPCS: 36415; 80053; 80061; 81001; 82043; 82570; 83036; 84439; 84443; 84550; 85025

== ENCOUNTER 2017-09-27 06:55 | Emergency (ER) | payer MEDICARE, OTHER ==
--- NOTE | 2017-09-27 07:10 | ER Document Report ---
ED General Pain - General Stated Complaint: NAUSEA Time Seen by Provider: 09/27/17 07:07 Mode of Arrival: Ambulatory Information source: Patient Notes: 81-year-old female with nonoperable gastric tumor cancer woke up this morning in the recliner with her CPAP mask on feeling nauseated. She does get nauseated with this tumor but what concerned her if she felt dizzy. No complaints of chest pain or shortness of breath. No abdominal pain. No dysuria. No diarrhea or constipation. Did vomit a little bit. She did get up and unlock the door to let EMS and she had pressed her life alert. She lives alone. Her daughter is in the room with her. The daughter spoke with Dr. Bullock this morning who wanted her to come to the emergency room for a CT of the abdomen. She takes a daily chemotherapy pill. PCP Dr. Chicas. TRAVEL OUTSIDE OF THE [place] IN LAST 30 DAYS: No - Related Data Allergies/Adverse Reactions: lisinopril [From Zestril] Allergy (Intermediate, Verified 09/27/17 08:00) Edema Past Medical History - General Information source: Patient - Social History Smoking Status: Never Smoker Frequency of alcohol use: None Drug Abuse: None Lives with: Alone Family History: None - Past Medical History Cardiac Medical History: Reports: Hx Atrial Fibrillation, Hx Hypercholesterolemia, Hx Hypertension Pulmonary Medical History: Reports: Other - Sleep apnea Endocrine Medical History: Reports: Hx Diabetes Mellitus Type 2 Renal/ Medical History: Denies: Hx Peritoneal Dialysis Malignancy Medical History: Reports: Hx Colorectal Cancer - GIST, Other - Gastric tumor GI Medical History: Reports: Hx Gastroesophageal Reflux Disease Psychiatric Medical History: Reports: Hx Depression Past Surgical History: Reports: Hx Appendectomy, Hx Bowel Surgery, Hx Hysterectomy - Immunizations Hx Diphtheria, Pertussis, Tetanus Vaccination: No Hx Pneumococcal Vaccination: 07/14/12 Review of Systems - Review of Systems Constitutional: See HPI EENT: No symptoms reported Cardiovascular: No symptoms reported Respiratory: No symptoms reported Gastrointestinal: No symptoms reported Genitourinary: No symptoms reported Female Genitourinary: No symptoms reported Musculoskeletal: No symptoms reported Skin: No symptoms reported Hematologic/Lymphatic: No symptoms reported Neurological/Psychological: See HPI Physical Exam - Vital signs Vitals: Pulse Ox 95 09/27/17 07:03 Interpretation: Normal - Notes Notes: pale - General General appearance: Alert In distress: None - HEENT Head: Normocephalic, Atraumatic Eyes: Normal Conjunctiva: Normal Pupils: PERRL Mucous membranes: Moist Neck: Supple. No: Lymphadenopathy - Respiratory Respiratory status: No respiratory distress Chest status: Nontender Breath sounds: Normal Chest palpation: Normal - Cardiovascular Rhythm: Regular Heart sounds: Normal auscultation Murmur: No - Abdominal Inspection: Normal Distension: No distension Bowel sounds: Normal Tenderness: Nontender. No: Tender Organomegaly: No organomegaly - Back Back: Normal, Nontender - Extremities General upper extremity: Normal inspection, Nontender, Normal color, Normal ROM , Normal temperature General lower extremity: Normal inspection, Nontender, Normal color, Normal ROM , Normal temperature, Normal weight bearing. No: Vaishali's sign - Neurological Neuro grossly intact: Yes Cognition: Normal Orientation: AAOx4 Luis Felipe Coma Scale Eye Opening: Spontaneous [place] Coma Scale Verbal: Oriented [place] Coma Scale Motor: Obeys Commands Luis Felipe Coma Scale Total: 15 Speech: Normal Motor strength normal: LUE, RUE, LLE, RLE Sensory: Normal - Psychological Associated symptoms: Normal affect, Normal mood - Skin Skin Temperature: Warm Skin Moisture: Dry Skin Color: Normal Skin irregularity: negative: Rash Course - Re-evaluation Re-evalutation: 09/27/17 10:[address] Bullock who still wants the IV and oral contrast CT the abdomen and pelvis which I have ordered I have explained this to the daughter the patient is now on the bedpan. She had a blood pressure of 97/45 and then 105/ 56 when she was seated with a heart rate of 86 when she stood she felt lightheaded less than this morning and blood pressure was 109/55 and heart rate was in 80's. 09/27/17 14:09 Patient is hungry her CT scan showed ileus no obstruction. She is not dizzy at this time. 09/27/17 15:10 Patient ambulated without dizziness vital signs are stable and she has not vomited she drink liquids and ate crackers and she is ready to go home. Consult dr pope about case and the dispo. - Vital Signs Vital signs: Temp Pulse Resp BP Pulse Ox 98.9 F 68 15 107/51 L 94 09/27/17 07:05 09/27/17 07:05 09/27/17 10:01 09/27/17 10:00 09/27/17 10:01 - Laboratory Result Diagrams: 09/27/17 07:50 09/27/17 07:50 Laboratory results interpreted by me: 09/27/17 09/27/17 07:50 07:50 RBC 2.89 L Hgb 9.1 L Hct 27.6 L RDW 14.8 H Est GFR ( Amer) 59 L Est GFR (Non-Af Amer) 49 L Creatine Kinase 154 H Total Protein 5.9 L Discharge - Discharge Clinical Impression: Dizziness, Nausea Anemia Qualifiers: Anemia type: unspecified type Qualified Code(s): D64.9 - Anemia, unspecified Gastric cancer Qualifiers: Malignant neoplasm of stomach location: unspecified location Qualified Code(s) : C16.9 - Malignant neoplasm of stomach, unspecified Condition: Good Disposition: HOME, SELF-CARE Instructions: Dehydration ([facility]), Dizziness ([facility]), Nausea or Vomiting, Nonspecific ([facility]) Additional Instructions: to er if worse see dr molina on friday for recheck plenty of fluids and advance diet as tolerated zofran for nausea if needed Urine culture is pending Prescriptions: Ondansetron [Zofran Odt] 8 mg PO Q6HP PRN #30 tab.rapdis PRN Reason: Referrals: DONG CHICAS MD [Primary Care Provider] - 09/29/17
[2017-09-27] MEDS ORDERED: NORMAL SALINE 1000 ML 500 ML IV ONE (07:23)
[2017-09-27 08:26] LABS: ABSOLUTE EOSINOPHILS # (AUTO) 0.2 10^3/uL (0.0-0.6); ABSOLUTE LYMPHOCYTES (AUTO) 1.4 10^3/uL (0.5-4.7); ABSOLUTE MONOCYTES (AUTO) 0.4 10^3/uL (0.1-1.4); ABSOLUTE NEUT (AUTO) 2.5 10^3/uL (1.7-8.2); BASOPHILS % (AUTO) 0.8 % (0-2); HEMATOCRIT 27.6 % (36.0-47.0); HEMOGLOBIN 9.1 g/dL (12.0-15.5); LYMPHOCYTES % (AUTO) 30.6 % (13-45); MEAN CORPUSCULAR HEMOGLOBIN 31.5 pg (27.0-33.4); MEAN CORPUSCULAR HGB CONC 33.1 g/dL (32.0-36.0); MEAN CORPUSCULAR VOLUME 95 fl (80-97); MONOCYTES % (AUTO) 8.6 % (3-13); PLATELET COUNT 251 10^3/uL (150-450); RED BLOOD COUNT 2.89 10^6/uL (3.72-5.28); RED CELL DISTRIBUTION WIDTH 14.8 % (11.5-14.0); TOTAL CELLS COUNTED % (AUTO) 100 %; WHITE BLOOD COUNT 4.5 10^3/uL (4.0-10.5)
--- NOTE | 2017-09-27 08:50 | RADIOLOGY REPORT (SQ) ---
EXAM DESCRIPTION: CHEST SINGLE VIEW COMPLETED DATE/TIME: 09/27/2017 8:10 am REASON FOR STUDY: weak dizzy COMPARISON: 09/09/2016 EXAM PARAMETERS: NUMBER OF VIEWS: One view. TECHNIQUE: Single frontal radiographic view of the chest acquired. RADIATION DOSE: NA LIMITATIONS: None. FINDINGS: LUNGS AND PLEURA: No opacities, masses or pneumothorax. No pleural effusion. MEDIASTINUM AND HILAR STRUCTURES: No masses. Contour normal. HEART AND VASCULAR STRUCTURES: Heart normal in size. Normal vasculature. BONES: No acute findings. HARDWARE: Spinal fusion. OTHER: Unchanged position of left-sided central line. IMPRESSION: NO ACUTE RADIOGRAPHIC FINDING IN THE CHEST. TECHNICAL DOCUMENTATION: JOB ID: [id number] [employer]- All Rights Reserved Reading location - IP/workstation name: [email or web address]
[2017-09-27 08:51] LABS: ALANINE AMINOTRANSFERASE 34 U/L (9-52); ALBUMIN 3.5 g/dL (3.5-5.0); ALKALINE PHOSPHATASE 38 U/L (38-126); ANION GAP 8 (5-19); ASPARTATE AMINO TRANSFERASE 30 U/L (14-36); BILIRUBIN,DIRECT 0.2 mg/dL (0.0-0.4); BILIRUBIN,TOTAL 0.2 mg/dL (0.2-1.3); BLOOD UREA NITROGEN 17 mg/dL (7-20); CALCIUM 9.1 mg/dL (8.4-10.2); CARBON DIOXIDE 29 mmol/L (22-30); CHLORIDE 106 mmol/L (98-107); CREATINE KINASE 154 U/L (30-135); GLUCOSE 98 mg/dL (75-110); POTASSIUM 4.7 mmol/L (3.6-5.0); SODIUM 142.9 mmol/L (137-145); TOTAL PROTEIN 5.9 g/dL (6.3-8.2)
[2017-09-27 09:00] LABS: CREATINE KINASE MB 0.99 ng/mL (<4.55)
[2017-09-27 09:01] LABS: TROPONIN I < 0.012 ng/mL
[2017-09-27 09:35] LABS: APPEARANCE,URINE CLEAR; BILIRUBIN,URINE NEGATIVE (NEGATIVE); COLOR,URINE YELLOW; GLUCOSE, URINE NEGATIVE (NEGATIVE); KETONES,URINE NEGATIVE (NEGATIVE); LEUKOCYTE ESTERASE,URINE NEGATIVE (NEGATIVE); NITRITE,URINE NEGATIVE (NEGATIVE); PROTEIN,URINE NEGATIVE (NEGATIVE); URINE SPECIFIC GRAVITY 1.012; UROBILINOGEN,URINE NEGATIVE mg/dL (<2.0)
--- NOTE | 2017-09-27 09:51 | EKG REPORT ---
SEVERITY:- ABNORMAL ECG - SINUS RHYTHM LEFT AXIS DEVIATION ABNRM R PROG, CONSIDER ASMI OR LEAD PLACEMENT : Confirmed by: Adolfo Chowdhury MD 27-Sep-2017 09:50:17
--- NOTE | 2017-09-27 13:53 | RADIOLOGY REPORT (SQ) ---
EXAM DESCRIPTION: CT ABD/PELVIS WITH IV ORAL COMPLETED DATE/TIME: 09/27/2017 1:29 pm REASON FOR STUDY: nausea, dizziness COMPARISON: 08/05/2016 TECHNIQUE: CT scan of the abdomen and pelvis performed with intravenous and oral contrast using sergey jayshree scanning technique with dynamic intravenous contrast injection. Images reviewed with lung, soft t issue, and bone windows. Reconstructed coronal and sagittal MPR images reviewed. Delayed images for e valuation of the urinary system also acquired. All images stored on PACS. All CT scanners at this facility use dose modulation, iterative reconstruction, and/or weight based d osing when appropriate to reduce radiation dose to as low as reasonably achievable (ALARA). [facility]: Dose Right [facility]: CareDose [facility]: Dose Right [facility]: Teradose 4D [facility]: Interleukin Genetics CONTRAST TYPE AND DOSE: contrast/concentration: Isovue 370.00 mg/ml; Total Contrast Delivered: 85.0 ml; Total Saline Delivered: 69.0 ml RENAL FUNCTION: BUN 17 creatinine 1.1 RADIATION DOSE: CT Rad equipment meets quality standard of care and radiation dose reduction techniq ues were employed. CTDIvol: 11.4 - 16.1 mGy. DLP: 1393 mGy-cm. . LIMITATIONS: Artifact from thoracolumbar fusion. FINDINGS: LOWER CHEST: No significant findings. No nodules or infiltrates. LIVER: Normal size. No masses. No dilated ducts. SPLEEN: Normal size. No focal lesions. PANCREAS: No masses. No significant calcifications. No adjacent inflammation or peripancreatic fluid collections. Pancreatic duct not dilated. GALLBLADDER: No identified stones by CT criteria. No inflammatory changes to suggest cholecystitis. ADRENAL GLANDS: No significant masses or asymmetry. RIGHT KIDNEY AND URETER: No solid masses. No significant calcifications. No hydronephrosis or hyd roureter. LEFT KIDNEY AND URETER: No solid masses. No significant calcifications. No hydronephrosis or hydr oureter. AORTA AND VESSELS: No aneurysm. RETROPERITONEUM: No retroperitoneal adenopathy, hemorrhage or masses. BOWEL AND PERITONEAL CAVITY: Interval decrease in left upper quadrant fluid collection, previously ab out 4.1 x 5.0 cm, now about 2.6 x 4.1 cm. Gas fluid levels within nondilated loops of small bowel co ntaining contrast. There is contrast in the colon. No free air. APPENDIX: Not visualized. PELVIS: Multiple clips. No adenopathy. ABDOMINAL WALL: No masses. No hernias. BONES: No acute findings. OTHER: No other significant finding. IMPRESSION: 1. Ileus. No obstruction. 2. Decrease in size of left upper quadrant fluid collection. TECHNICAL DOCUMENTATION: JOB ID: [id number] Quality ID # [id number]: Final reports with documentation of one or more dose reduction techniques (e.g., Au tomated exposure control, adjustment of the mA and/or kV according to patient size, use of iterative reconstruction technique) 2010 [employer]- All Rights Reserved Reading location - IP/workstation name: [email or web address]
[2017-09-27 15:33] VITALS: BP 119/53
== END 2017-09-27 15:20 | disposition home or self-care (01) ==
LOC: ER 06:55
DX: R11.2 Nausea with vomiting, unspecified (principal); R42 Dizziness and giddiness; D64.9 Anemia, unspecified; C16.9 Malignant neoplasm of stomach, unspecified; I48.91 Unspecified atrial fibrillation; I10 Essential (primary) hypertension; E11.9 Type 2 diabetes mellitus without complications; Z90.710 Acquired absence of both cervix and uterus
CPT/HCPCS: 93005; 99285; 96360; 36415; 87086; 82553; 82962; 82550; 85025; 80053; 81001; 84484; 71045; 74177; 93010; J7030

== ENCOUNTER 2018-12-18 12:49 | Observation (INO) | payer MEDICARE, OTHER ==
[2018-12-18] MEDS ORDERED: HYDROMORPHONE HCL INJ/PF 2 MG/ML AMPULE IV PRN (13:57)
--- NOTE | 2018-12-18 15:07 | RADIOLOGY REPORT (SQ) ---
EXAM DESCRIPTION: CT CHEST WITHOUT COMPLETED DATE/TIME: 12/18/2018 2:27 pm REASON FOR STUDY: PNEUMONIA R07.9 CHEST PAIN, UNSPECIFIED E13.8 OTH DIABETES MELLITUS WITH UNSPECI FIED COMPLICATIONS COMPARISON: None. TECHNIQUE: CT scan performed of the chest without intravenous contrast. Images reviewed with lung, soft tissue and bone windows. Reconstructed coronal and sagittal MPR images reviewed. All images st ored on PACS. All CT scanners at this facility use dose modulation, iterative reconstruction, and/or weight based d osing when appropriate to reduce radiation dose to as low as reasonably achievable (ALARA). [facility]: Dose Right [facility]: CareDose [facility]: Dose Right [facility]: Teradose 4D [facility]: [employer] RADIATION DOSE: CT Rad equipment meets quality standard of care and radiation dose reduction techniq ues were employed. CTDIvol: 11.9 mGy. DLP: 452 mGy-cm. mGy. LIMITATIONS: No technical limitations. FINDINGS: LUNGS AND PLEURA: Mild scarring in the lower lobes. No masses, infiltrates, or pneumothor ax. No pleural effusions or pleural calcifications. HILAR AND MEDIASTINAL STRUCTURES: No identified masses or abnormal nodes. No obvious aneurysm. HEART AND VASCULAR STRUCTURES: No aneurysm. No pericardial effusion. UPPER ABDOMEN: No significant findings. Limited exam. THYROID AND OTHER SOFT TISSUES: No masses. No adenopathy. BONES: Surgical changes in the thoracic spine with extensive hardware. HARDWARE: None in the chest. OTHER: Large oval mass in the left breast, incompletely imaged. IMPRESSION: 1. MILD SCARRING IN THE LOWER LOBES. 2. LARGE OVAL MASS IN THE LEFT BREAST, INCOMPLETELY IMAGED. THIS MAY BE A PRIMARY BREAST MASS VERSUS HEMATOMA OR POSTOPERATIVE CHANGE. 3. SURGICAL CHANGES AND EXTENSIVE HARDWARE IN THE THORACIC SPINE. 4. NO OTHER SIGNIFICANT FINDING ON NON-CONTRASTED CHEST CT. TECHNICAL DOCUMENTATION: JOB ID: [id number] Quality ID # [id number]: Final reports with documentation of one or more dose reduction techniques (e.g., Au tomated exposure control, adjustment of the mA and/or kV according to patient size, use of iterative reconstruction technique) 2010 [employer]- All Rights Reserved Reading location - IP/workstation name: [email or web address]
[2018-12-18 15:34] LABS: HEMOGLOBIN 8.4 g/dL (12.0-15.5); MEAN CORPUSCULAR HEMOGLOBIN 31.6 pg (27.0-33.4); MEAN CORPUSCULAR HGB CONC 33.7 g/dL (32.0-36.0); MEAN CORPUSCULAR VOLUME 94 fl (80-97); PLATELET COUNT 407 10^3/uL (150-450); RED BLOOD COUNT 2.66 10^6/uL (3.72-5.28); RED CELL DISTRIBUTION WIDTH 14.7 % (11.5-14.0); WHITE BLOOD COUNT 4.8 10^3/uL (4.0-10.5)
[2018-12-18 15:53] LABS: ALANINE AMINOTRANSFERASE 16 U/L (9-52); ALBUMIN 3.4 g/dL (3.5-5.0); ALKALINE PHOSPHATASE 69 U/L (38-126); ANION GAP 7 (5-19); ASPARTATE AMINO TRANSFERASE 22 U/L (14-36); BILIRUBIN,DIRECT 0.3 mg/dL (0.0-0.4); BILIRUBIN,TOTAL 0.3 mg/dL (0.2-1.3); BLOOD UREA NITROGEN 14 mg/dL (7-20); CALCIUM 8.9 mg/dL (8.4-10.2); CARBON DIOXIDE 31 mmol/L (22-30); CHLORIDE 103 mmol/L (98-107); GLUCOSE 102 mg/dL (75-110); POTASSIUM 3.4 mmol/L (3.6-5.0); SODIUM 141.3 mmol/L (137-145); TOTAL PROTEIN 6.3 g/dL (6.3-8.2)
[2018-12-18] MEDS: 1/2 NORMAL SALINE 1,000 ML IV PRN (16:53)
[2018-12-18] MEDS: ONDANSETRON HCL INJ/PF 4 MG/2 ML SDV IV PRN (18:01)
[2018-12-18 18:33] LABS: APPEARANCE,URINE CLEAR; BILIRUBIN,URINE NEGATIVE (NEGATIVE); COLOR,URINE STRAW; GLUCOSE, URINE NEGATIVE (NEGATIVE); KETONES,URINE NEGATIVE (NEGATIVE); LEUKOCYTE ESTERASE,URINE NEGATIVE (NEGATIVE); NITRITE,URINE NEGATIVE (NEGATIVE); PROTEIN,URINE NEGATIVE (NEGATIVE); URINE SPECIFIC GRAVITY 1.009; UROBILINOGEN,URINE NEGATIVE mg/dL (<2.0)
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
[2018-12-19] MEDS ORDERED: CETIRIZINE 10 MG TABLET PO PRN (06:22)
[2018-12-19] MEDS ORDERED: BENZONATATE 100 MG CAPSULE PO PRN (06:22)
[2018-12-19] MEDS ORDERED: MECLIZINE HCL 25 MG TABLET PO PRN (06:22)
[2018-12-19] MEDS ORDERED: (PENDING PHARMACY ID) (Olmesartan/Hydrochlorothiazide [Benicar Hct 40-25 Mg Tablet] 1 TAB) PO SCH (06:30)
[2018-12-19] MEDS ORDERED: ATENOLOL 50 MG TABLET PO ONE (06:45)
[2018-12-19] MEDS ORDERED: PANTOPRAZOLE SODIUM 40 MG TABLET.DR PO ONE ×2 (06:45→11:07)
[2018-12-19] MEDS ORDERED: LOSARTAN POTASSIUM 50 MG TABLET PO ONE (07:00)
[2018-12-19] MEDS ORDERED: FERROUS SULFATE 325 MG TABLET PO ONE ×3 (07:00→11:30)
[2018-12-19] MEDS ORDERED: ASPIRIN 325 MG TABLET PO ONE (07:00)
[2018-12-19] MEDS ORDERED: HYDROCHLOROTHIAZIDE 25 MG TABLET PO ONE ×2 (07:00→15:45)
--- NOTE | 2018-12-19 11:00 | PDOC PROGRESS REPORT ---
Subjective Progress Note for:: 12/19/18 Subjective:: Patient still complain about lower back pain. She reported unpleasant feeling and nausea with vomiting after administration of Dilaudid for her pain management yesterday. She denied any chest pain or difficulty with breathing. No fever or chills. Reason For Visit: INTRACTABLE PAIN, DM TYPE 2 Physical Exam Vital Signs: Temp Pulse Resp BP Pulse Ox 98.9 F 71 18 128/51 H 95 12/19/18 00:18 12/19/18 07:00 12/19/18 03:24 12/19/18 03:24 12/19/18 03:24 Intake & Output 12/18/18 12/19/18 12/20/18 06:59 06:59 06:59 Weight 81.2 kg General appearance: PRESENT: no acute distress Head exam: PRESENT: atraumatic, normocephalic Eye exam: PRESENT: conjunctiva pink. ABSENT: scleral icterus Ear exam: PRESENT: normal external ear exam Mouth exam: PRESENT: moist Respiratory exam: PRESENT: clear to auscultation cabrera, decreased breath sounds - at lung bases Vascular exam: ABSENT: pallor GI/Abdominal exam: PRESENT: normal bowel sounds, soft. ABSENT: distended, guarding, mass, organolmegaly, rebound, tenderness Extremities exam: PRESENT: tenderness - lumbar region and left chest wall to palpation.. ABSENT: pedal edema Neurological exam: PRESENT: alert, awake, oriented to person, oriented to place, oriented to time, oriented to situation, CN II-XII grossly intact. ABSENT: motor sensory deficit Psychiatric exam: PRESENT: appropriate affect, normal mood. ABSENT: homicidal ideation, suicidal ideation Skin exam: PRESENT: dry, warm Results Laboratory Results: 12/18/18 15:21 12/18/18 15:21 12/18/18 12/18/18 12/18/18 15:21 15:21 16:27 WBC 4.8 RBC 2.66 L Hgb 8.4 L Hct 25.0 L MCV 94 MCH 31.6 MCHC 33.7 RDW 14.7 H Plt Count 407 Sodium 141.3 Potassium 3.4 L Chloride 103 Carbon Dioxide 31 H Anion Gap 7 BUN 14 Creatinine 1.06 Est GFR ( Amer) > 60 Est GFR (Non-Af Amer) 50 L Glucose 102 Calcium 8.9 Total Bilirubin 0.3 AST 22 ALT 16 Alkaline Phosphatase 69 Total Protein 6.3 Albumin 3.4 L Urine Color STRAW Urine Appearance CLEAR Urine pH 8.0 Ur Specific [place] 1.009 Urine Protein NEGATIVE Urine Glucose (UA) NEGATIVE Urine Ketones NEGATIVE Urine Blood NEGATIVE Urine Nitrite NEGATIVE Ur Leukocyte Esterase NEGATIVE Urine WBC (Auto) 0 Urine RBC (Auto) 1 Impressions: Chest CT 12/18/18 00:00 IMPRESSION: 1. MILD SCARRING IN THE LOWER LOBES. 2. LARGE OVAL MASS IN THE LEFT BREAST, INCOMPLETELY IMAGED. THIS MAY BE A PRIMARY BREAST MASS VERSUS HEMATOMA OR POSTOPERATIVE CHANGE. 3. SURGICAL CHANGES AND EXTENSIVE HARDWARE IN THE THORACIC SPINE. 4. NO OTHER SIGNIFICANT FINDING ON NON-CONTRASTED CHEST CT. Assessment & Plan - Diagnosis (1) Intractable pain Is this a current diagnosis for this admission?: Yes Plan: D/C Dilaudid. Start on IV morphine 2 mg q6 hours prn for pain management. (2) Posttraumatic hematoma of breast Qualifiers: Encounter type: subsequent encounter Laterality: left Qualified Code(s): S20.02XD - Contusion of left breast, subsequent encounter Is this a current diagnosis for this admission?: Yes Plan: Continue current medication management. Consider local thermotherapy for pain management as tolerated. (3) Type 2 diabetes mellitus Qualifiers: Diabetes mellitus terminal operator insulin use: without detention use Diabetes mellitus complication status: without complication Qualified Code(s): E11.9 - Type 2 diabetes mellitus without complications Is this a current diagnosis for this admission?: Yes Plan: Continue current medication and dietary management. (4) Chronic atrial fibrillation Is this a current diagnosis for this admission?: Yes Plan: Remain on Telemetry monitoring and current medication management. (5) Anemia Qualifiers: Anemia type: unspecified type Qualified Code(s): D64.9 - Anemia, unspecified Is this a current diagnosis for this admission?: Yes Plan: Monitor CBC indices and transfuse as indicated. (6) Hypokalemia Is this a current diagnosis for this admission?: Yes Plan: Obtain serum mag level. Potassium replacement as indicated. - Time Time Spent with patient: 25-34 minutes Medications reviewed and adjusted accordingly: Yes Anticipated discharge: Home with Homehealth Within: Other - Inpatient Certification Based on my medical assessment, after consideration of the patient's comorbidities, presenting symptoms, or acuity I expect that the services needed warrant INPATIENT care.: Yes I certify that my determination is in accordance with my understanding of Medicare's requirements for reasonable and necessary INPATIENT services [42 CFR 412.3e].: Yes Medical Necessity: Significant Comorbidiites Make Outpatient Treatment Too Risky, Need Close Monitoring Due to Risk of Patient Decompensation, Need For IV Fluids, Need For Continuous Telemetry Monitoring, Need for Pain Control, Risk of Complication if Not Cared For in Hospital, Risk of Diagnosis Which Will Require Inpatient Eval/Care/Monitoring Post Hospital Care: D/C Flare Breaker Documentation - Plan Summary Plan Summary: See covering attending physician orders for details of care plan management.
[2018-12-19] MEDS ORDERED: MORPHINE SULFATE 10 MG/ML INJ IV PRN (11:03)
[2018-12-19] MEDS: ASCORBIC ACID 500 MG TABLET PO SCH ×2 (11:04→19:34)
[2018-12-19] MEDS: DULOXETINE HCL 30 MG CAPSULE.DR PO SCH (11:05)
[2018-12-19] MEDS ORDERED: ASPIRIN 325 MG TABLET ONE (11:28)
[2018-12-19] MEDS ORDERED: LOSARTAN POTASSIUM 50 MG TABLET ONE (11:28)
[2018-12-19] MEDS ORDERED: ATENOLOL 50 MG TABLET ONE (11:28)
[2018-12-19] MEDS ORDERED: HYDRALAZINE HCL 25 MG TABLET ONE (11:30)
[2018-12-19 11:50] LABS: ABSOLUTE EOSINOPHILS # (AUTO) 0.1 10^3/uL (0.0-0.6); ABSOLUTE MONOCYTES (AUTO) 0.6 10^3/uL (0.1-1.4); ABSOLUTE NEUT (AUTO) 3.5 10^3/uL (1.7-8.2); BASOPHILS % (AUTO) 0.7 % (0-2); EOSINOPHILS % (AUTO) 1.2 % (0-6); HEMATOCRIT 25.5 % (36.0-47.0); HEMOGLOBIN 8.5 g/dL (12.0-15.5); MEAN CORPUSCULAR HEMOGLOBIN 31.2 pg (27.0-33.4); MEAN CORPUSCULAR HGB CONC 33.6 g/dL (32.0-36.0); MEAN CORPUSCULAR VOLUME 93 fl (80-97); MONOCYTES % (AUTO) 10.8 % (3-13); PLATELET COUNT 448 10^3/uL (150-450); RED BLOOD COUNT 2.74 10^6/uL (3.72-5.28); RED CELL DISTRIBUTION WIDTH 14.5 % (11.5-14.0); SEGMENTED NEUTROPHILS % (AUTO) 68.3 % (42-78); TOTAL CELLS COUNTED % (AUTO) 100 %; WHITE BLOOD COUNT 5.1 10^3/uL (4.0-10.5)
[2018-12-19 12:09] LABS: ANION GAP 7 (5-19); BLOOD UREA NITROGEN 12 mg/dL (7-20); CALCIUM 9.2 mg/dL (8.4-10.2); CARBON DIOXIDE 30 mmol/L (22-30); CHLORIDE 105 mmol/L (98-107); GLUCOSE 110 mg/dL (75-110); POTASSIUM 3.9 mmol/L (3.6-5.0); SODIUM 141.7 mmol/L (137-145)
[2018-12-19] MEDS: 1/2 NORMAL SALINE 1,000 ML IV PRN (13:13)
[2018-12-19] MEDS: METFORMIN HCL 500 MG TABLET PO SCH (19:34)
[2018-12-20] MEDS: 1/2 NORMAL SALINE 1,000 ML IV PRN (06:42)
[2018-12-20] MEDS: FERROUS SULFATE 325 MG TABLET PO SCH (09:30)
[2018-12-20] MEDS: HYDROCHLOROTHIAZIDE 25 MG TABLET PO SCH (09:30)
[2018-12-20] MEDS: ASPIRIN 325 MG TABLET PO SCH (09:30)
[2018-12-20] MEDS: ASCORBIC ACID 500 MG TABLET PO SCH ×2 (09:30→18:01)
[2018-12-20] MEDS: DULOXETINE HCL 30 MG CAPSULE.DR PO SCH (09:30)
[2018-12-20] MEDS: ATENOLOL 50 MG TABLET PO SCH (09:31)
[2018-12-20] MEDS: PANTOPRAZOLE SODIUM 40 MG TABLET.DR PO SCH (09:31)
[2018-12-20] MEDS: LOSARTAN POTASSIUM 50 MG TABLET PO SCH (09:31)
[2018-12-20] MEDS: ACETAMINOPHEN 325 MG TABLET PO PRN ×2 (09:42→15:50)
[2018-12-20] MEDS ORDERED: DULOXETINE HCL 30 MG CAPSULE.DR PO SCH (10:00)
--- NOTE | 2018-12-20 13:54 | PDOC PROGRESS REPORT ---
Subjective Progress Note for:: 12/20/18 Subjective:: Patient continue to reported generalized body aches and pain with particularly worsen lower back region pain. Refused heat pad application because it caused her to fall asleep. No chest pain or difficulty with breathing. Out of bed in chair at the time of my bedside evaluation today. No fever, chills, nausea, vomiting or abdominal pain. Reason For Visit: INTRACTABLE PAIN, DM TYPE 2 Physical Exam Vital Signs: Temp Pulse Resp BP Pulse Ox 98.7 F 72 18 134/48 H 98 12/20/18 10:48 12/20/18 10:48 12/20/18 10:48 12/20/18 10:48 12/20/18 10:48 Intake & Output 12/19/18 12/20/18 12/21/18 06:59 06:59 06:59 Intake Total 2484 280 Output Total 550 250 Balance 1934 30 Weight 81.2 kg 81.8 kg Physical Exam: General appearance: PRESENT: no acute distress Head exam: PRESENT: atraumatic, normocephalic Eye exam: PRESENT: conjunctiva pink. ABSENT: pallor, scleral icterus Ear exam: PRESENT: normal external ear exam Mouth exam: PRESENT: moist Respiratory exam: PRESENT: clear to auscultation cabrera, decreased breath sounds - at lung bases GI/Abdominal exam: PRESENT: normal bowel sounds, soft. ABSENT: distended, guarding, mass, organomegaly, rebound, tenderness Extremities exam: PRESENT: tenderness - lumbar region and left chest wall to palpation.. ABSENT: pedal edema Neurological exam: PRESENT: alert, awake, oriented to person, oriented to place, oriented to time, oriented to situation, CN II-XII grossly intact. ABSENT: motor sensory deficit Psychiatric exam: PRESENT: appropriate affect, normal mood. ABSENT: homicidal ideation, suicidal ideation Skin exam: PRESENT: dry, warm Results Laboratory Results: 12/19/18 11:23 12/19/18 11:23 Impressions: Chest CT 12/18/18 00:00 IMPRESSION: 1. MILD SCARRING IN THE LOWER LOBES. 2. LARGE OVAL MASS IN THE LEFT BREAST, INCOMPLETELY IMAGED. THIS MAY BE A PRIMARY BREAST MASS VERSUS HEMATOMA OR POSTOPERATIVE CHANGE. 3. SURGICAL CHANGES AND EXTENSIVE HARDWARE IN THE THORACIC SPINE. 4. NO OTHER SIGNIFICANT FINDING ON NON-CONTRASTED CHEST CT. Assessment & Plan - Diagnosis (1) Intractable pain Is this a current diagnosis for this admission?: Yes (2) Posttraumatic hematoma of breast Qualifiers: Encounter type: subsequent encounter Laterality: left Qualified Code(s): S20.02XD - Contusion of left breast, subsequent encounter Is this a current diagnosis for this admission?: Yes (3) Type 2 diabetes mellitus Qualifiers: Diabetes mellitus longterm insulin use: without exterminator helper use Diabetes mellitus complication status: without complication Qualified Code(s): E11.9 - Type 2 diabetes mellitus without complications Is this a current diagnosis for this admission?: Yes (4) Chronic atrial fibrillation Is this a current diagnosis for this admission?: Yes (5) Anemia Qualifiers: Anemia type: unspecified type Qualified Code(s): D64.9 - Anemia, unspecified Is this a current diagnosis for this admission?: Yes (6) Hypokalemia Is this a current diagnosis for this admission?: Yes - Time Time Spent with patient: 25-34 minutes Medications reviewed and adjusted accordingly: Yes Anticipated discharge: Home with Homehealth, SNF Within: Other - Inpatient Certification Based on my medical assessment, after consideration of the patient's comorbidities, presenting symptoms, or acuity I expect that the services needed warrant INPATIENT care.: Yes I certify that my determination is in accordance with my understanding of Medicare's requirements for reasonable and necessary INPATIENT services [42 CFR 412.3e].: Yes Medical Necessity: Significant Comorbidiites Make Outpatient Treatment Too Risky, Need Close Monitoring Due to Risk of Patient Decompensation, Need For IV Fluids, Need For Continuous Telemetry Monitoring, Risk of Complication if Not Cared For in Hospital, Risk of Diagnosis Which Will Require Inpatient Eval/Care/Monitoring Post Hospital Care: D/C Sports Analyst Documentation, D/C or Transfer Summary - Plan Summary Plan Summary: Continue current medication management. she will benefit from SNF short term rehabilitation or home PT service upon discharge. Obtain CBC in am.
[2018-12-20] MEDS: METFORMIN HCL 500 MG TABLET PO SCH (18:02)
[2018-12-20] MEDS: CYCLOSPORINE 0.05% OPH EMULSIO 0.4 ML DROPERETTE OU SCH (18:03)
[2018-12-20] MEDS: PT OWN MED (POM) PO SCH (18:04)
[2018-12-21] MEDS: 1/2 NORMAL SALINE 1,000 ML IV PRN (02:34)
[2018-12-21 06:40] LABS: ABSOLUTE BASOPHILS # (AUTO) 0.1 10^3/uL (0.0-0.2); ABSOLUTE EOSINOPHILS # (AUTO) 0.1 10^3/uL (0.0-0.6); ABSOLUTE MONOCYTES (AUTO) 0.6 10^3/uL (0.1-1.4); ABSOLUTE NEUT (AUTO) 3.1 10^3/uL (1.7-8.2); EOSINOPHILS % (AUTO) 2.6 % (0-6); HEMATOCRIT 24.8 % (36.0-47.0); HEMOGLOBIN 8.3 g/dL (12.0-15.5); LYMPHOCYTES % (AUTO) 21.1 % (13-45); MEAN CORPUSCULAR HEMOGLOBIN 31.4 pg (27.0-33.4); MEAN CORPUSCULAR HGB CONC 33.6 g/dL (32.0-36.0); MEAN CORPUSCULAR VOLUME 94 fl (80-97); MONOCYTES % (AUTO) 12.1 % (3-13); PLATELET COUNT 422 10^3/uL (150-450); RED BLOOD COUNT 2.66 10^6/uL (3.72-5.28); RED CELL DISTRIBUTION WIDTH 14.5 % (11.5-14.0); SEGMENTED NEUTROPHILS % (AUTO) 63.2 % (42-78); TOTAL CELLS COUNTED % (AUTO) 100 %; WHITE BLOOD COUNT 4.9 10^3/uL (4.0-10.5)
[2018-12-21 07:01] LABS: ANION GAP 8 (5-19); BLOOD UREA NITROGEN 17 mg/dL (7-20); CALCIUM 8.8 mg/dL (8.4-10.2); CARBON DIOXIDE 27 mmol/L (22-30); CHLORIDE 104 mmol/L (98-107); GLUCOSE 101 mg/dL (75-110); SODIUM 138.8 mmol/L (137-145)
[2018-12-21] MEDS: CYCLOSPORINE 0.05% OPH EMULSIO 0.4 ML DROPERETTE OU SCH ×2 (09:02→17:09)
[2018-12-21] MEDS: ASPIRIN 325 MG TABLET PO SCH (09:02)
[2018-12-21] MEDS: ASCORBIC ACID 500 MG TABLET PO SCH ×2 (09:02→17:09)
[2018-12-21] MEDS: PANTOPRAZOLE SODIUM 40 MG TABLET.DR PO SCH (09:02)
[2018-12-21] MEDS: FERROUS SULFATE 325 MG TABLET PO SCH (09:02)
[2018-12-21] MEDS: LOSARTAN POTASSIUM 50 MG TABLET PO SCH (09:03)
[2018-12-21] MEDS: ATENOLOL 50 MG TABLET PO SCH (09:03)
[2018-12-21] MEDS: DULOXETINE HCL 30 MG CAPSULE.DR PO SCH (09:03)
[2018-12-21] MEDS: HYDROCHLOROTHIAZIDE 25 MG TABLET PO SCH (09:03)
[2018-12-21] MEDS: PT OWN MED (POM) PO SCH (09:06)
[2018-12-21] MEDS ORDERED: IMATINIB PO SCH (10:00)
[2018-12-21] MEDS: ACETAMINOPHEN 325 MG TABLET PO PRN (17:09)
[2018-12-21] MEDS: METFORMIN HCL 500 MG TABLET PO SCH (17:09)
[2018-12-21] MEDS ORDERED: SIMETHICONE 80 MG TAB.CHEW PO PRN (18:39)
--- NOTE | 2018-12-21 18:42 | PDOC PROGRESS REPORT ---
Subjective Progress Note for:: 12/21/18 Reason For Visit: INTRACTABLE PAIN, DM TYPE 2 Physical Exam Vital Signs: Temp Pulse Resp BP Pulse Ox 98.9 F 80 18 134/48 H 96 12/21/18 16:05 12/21/18 16:05 12/21/18 16:05 12/21/18 16:05 12/21/18 16:05 Intake & Output 12/20/18 12/21/18 12/22/18 06:59 06:59 06:59 Intake Total 2484 1738 Output Total 550 650 Balance 1934 1088 Weight 81.8 kg 80.8 kg Results Laboratory Results: 12/21/18 06:15 12/21/18 06:15 12/21/18 12/21/18 06:15 06:15 WBC 4.9 RBC 2.66 L Hgb 8.3 L Hct 24.8 L MCV 94 MCH 31.4 MCHC 33.6 RDW 14.5 H Plt Count 422 Seg Neutrophils % 63.2 Lymphocytes % 21.1 Monocytes % 12.1 Eosinophils % 2.6 Basophils % 1.0 Absolute Neutrophils 3.1 Absolute Lymphocytes 1.0 Absolute Monocytes 0.6 Absolute Eosinophils 0.1 Absolute Basophils 0.1 Sodium 138.8 Potassium 4.0 Chloride 104 Carbon Dioxide 27 Anion Gap 8 BUN 17 Creatinine 0.92 Est GFR ( Amer) > 60 Est GFR (Non-Af Amer) 58 L Glucose 101 Calcium 8.8 Impressions: Chest CT 12/18/18 00:00 IMPRESSION: 1. MILD SCARRING IN THE LOWER LOBES. 2. LARGE OVAL MASS IN THE LEFT BREAST, INCOMPLETELY IMAGED. THIS MAY BE A PRIMARY BREAST MASS VERSUS HEMATOMA OR POSTOPERATIVE CHANGE. 3. SURGICAL CHANGES AND EXTENSIVE HARDWARE IN THE THORACIC SPINE. 4. NO OTHER SIGNIFICANT FINDING ON NON-CONTRASTED CHEST CT. Assessment & Plan - Diagnosis (1) Intractable pain Is this a current diagnosis for this admission?: Yes (2) Posttraumatic hematoma of breast Qualifiers: Encounter type: subsequent encounter Laterality: left Qualified Code(s): S20.02XD - Contusion of left breast, subsequent encounter Is this a current diagnosis for this admission?: Yes
[2018-12-22] MEDS: 1/2 NORMAL SALINE 1,000 ML IV PRN (07:18)
[2018-12-22] MEDS: ATENOLOL 50 MG TABLET PO SCH (09:49)
[2018-12-22] MEDS: LOSARTAN POTASSIUM 50 MG TABLET PO SCH (09:49)
[2018-12-22] MEDS: ASPIRIN 325 MG TABLET PO SCH (09:49)
[2018-12-22] MEDS: DULOXETINE HCL 30 MG CAPSULE.DR PO SCH (09:49)
[2018-12-22] MEDS: HYDROCHLOROTHIAZIDE 25 MG TABLET PO SCH (09:49)
[2018-12-22] MEDS: PANTOPRAZOLE SODIUM 40 MG TABLET.DR PO SCH (09:50)
[2018-12-22] MEDS: CYCLOSPORINE 0.05% OPH EMULSIO 0.4 ML DROPERETTE OU SCH ×2 (09:50→17:25)
[2018-12-22] MEDS: PT OWN MED (POM) PO SCH (09:50)
[2018-12-22] MEDS: ASCORBIC ACID 500 MG TABLET PO SCH ×2 (09:50→17:24)
[2018-12-22] MEDS: FERROUS SULFATE 325 MG TABLET PO SCH (09:50)
[2018-12-22] MEDS: ONDANSETRON HCL INJ/PF 4 MG/2 ML SDV IV PRN (10:29)
[2018-12-22] MEDS: METFORMIN HCL 500 MG TABLET PO SCH (17:24)
[2018-12-22] MEDS: ACETAMINOPHEN 325 MG TABLET PO PRN (17:27)
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
[2018-12-23] MEDS: 1/2 NORMAL SALINE 1,000 ML IV PRN (02:26)
[2018-12-23] MEDS ORDERED: ERGOCALCIFEROL (VITAMIN D2) 50000 UNIT (1.25 MG) CAPSULE PO SCH (06:22)
[2018-12-23] MEDS: DULOXETINE HCL 30 MG CAPSULE.DR PO SCH (12:18)
[2018-12-23] MEDS: HYDROCHLOROTHIAZIDE 25 MG TABLET PO SCH (12:18)
[2018-12-23] MEDS: ASPIRIN 325 MG TABLET PO SCH (12:19)
[2018-12-23] MEDS: PANTOPRAZOLE SODIUM 40 MG TABLET.DR PO SCH (12:19)
[2018-12-23] MEDS: LOSARTAN POTASSIUM 50 MG TABLET PO SCH (12:19)
[2018-12-23] MEDS: ATENOLOL 50 MG TABLET PO SCH (12:19)
[2018-12-23] MEDS: FERROUS SULFATE 325 MG TABLET PO SCH (12:19)
[2018-12-23] MEDS: PT OWN MED (POM) PO SCH (12:20)
[2018-12-23] MEDS: CYCLOSPORINE 0.05% OPH EMULSIO 0.4 ML DROPERETTE OU SCH ×2 (12:20→18:01)
[2018-12-23] MEDS: ACETAMINOPHEN 325 MG TABLET PO PRN (12:25)
[2018-12-23] MEDS: ASCORBIC ACID 500 MG TABLET PO SCH ×2 (15:20→18:00)
[2018-12-23 17:48] VITALS: BP 124/45
[2018-12-23] MEDS: METFORMIN HCL 500 MG TABLET PO SCH (18:00)
== END 2018-12-23 17:30 | disposition home or self-care (01) ==
LOC: 5 12:49
PROVIDERS: ADMIT Internal Medicine; ATTEND Internal Medicine
DX: R07.9 Chest pain, unspecified (principal); E11.9 Type 2 diabetes mellitus without complications; C49.A0 Gastrointestinal stromal tumor, unspecified site; E78.5 Hyperlipidemia, unspecified; I10 Essential (primary) hypertension; K21.9 Gastro-esophageal reflux disease without esophagitis; M19.90 Unspecified osteoarthritis, unspecified site; F32.9 Major depressive disorder, single episode, unspecified; D64.9 Anemia, unspecified; S20.02XD Contusion of left breast, subsequent encounter; M54.5 Low back pain; I48.2 Chronic atrial fibrillation; E87.6 Hypokalemia; Z79.84 Long term (current) use of oral hypoglycemic drugs; Z79.82 Long term (current) use of aspirin; Z85.038 Personal history of other malignant neoplasm of large intestine; Z88.8 Allergy status to other drugs, medicaments and biological substances
CPT/HCPCS: 82962 ×2; 83735; 85025 ×2; 85027; 80076; 80048 ×3; 81001; 71250; G0378 ×6; G0379; A9270 ×35; J3490 ×6; J1170; J2405 ×2; J1642; 36415

== ENCOUNTER → 2019-01-20 | Outpatient (CLI) | payer MEDICARE, OTHER ==
--- NOTE | 2019-01-20 14:46 | RADIOLOGY REPORT (SQ) ---
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 Images reviewed with lung, soft tissue and bone windows. Reconstructed coronal a nd sagittal MPR images reviewed. All images stored on PACS. CT scan of the abdomen and pelvis performed with intravenous and with oral contrastusing helical scan kyrie technique with dynamic intravenous contrast injection. Images reviewed with lung, soft tissue a nd bone windows. Reconstructed coronal and sagittal MPR images reviewed. Delayed images for evaluat ion of the urinary system also acquired and evaluated. All images stored on PACS. All CT scanners at this facility use dose modulation, iterative reconstruction, and/or weight based d osing when appropriate to reduce radiation dose to as low as reasonably achievable (ALARA). [facility]: Dose Right [facility]: CareDose [facility]: Dose Right [facility]: Teradose 4D [facility]: [employer] RADIATION DOSE: CT Rad equipment meets quality standard of care and radiation dose reduction techniq ues were employed. CTDIvol: 7.3 - 14.0 mGy. DLP: 1222 mGy-cm. . LIMITATIONS: None. FINDINGS: CHEST: LUNGS AND PLEURA: No opacities, nodules, masses. No pneumothorax. No effusions. HILAR AND MEDIASTINAL STRUCTURES: No identified masses or abnormal nodes. HEART AND VASCULAR STRUCTURES: No aneurysm or dissection. No central pulmonary emboli. No pericardi al effusion. HARDWARE: Left-sided permanent central line tip superior vena cava THYROID AND OTHER SOFT TISSUES: A 9 x 6 cm soft tissue mass is present in the left breast, new compar ed to 08/05/2016. This is incompletely included in the field of view on CT 12/18/2018. This may repres ent a metastatic lesion BONES: Old T11 corpectomy with vertebral body prosthesis, and bilateral transpedicular screws with do rsal fixation plates lower thoracic spine. OTHER: No other significant finding. ABDOMEN AND PELVIS: LIVER: Normal size. No masses. No dilated ducts. SPLEEN: Normal size. No focal lesions. PANCREAS: No masses. No significant calcifications. No adjacent inflammation or peripancreatic fluid collections. Pancreatic duct not dilated. GALLBLADDER: No identified stones by CT criteria. No inflammatory changes to suggest cholecystitis. ADRENAL GLANDS: On the left side, a retroperitoneal mass is present along the left adrenal gland, bor dering the stomach fundus and upper pole left kidney. This measures 5.5 x 4 cm on axial image 16 (wa s 4 x 2.6 cm on 09/17/2017, 5 x 4 cm on 08/05/2016). Right adrenal gland is unremarkable. RIGHT KIDNEY AND URETER: No solid masses. No significant calcification. No hydronephrosis or hydroure ter. LEFT KIDNEY AND URETER: No solid masses. No significant calcification. No hydronephrosis or hydrouret er. AORTA AND VESSELS: No aneurysm. No dissection. Renal arteries, SMA, celiac without stenosis. RETROPERITONEUM: No retroperitoneal adenopathy, hemorrhage or masses. BOWEL AND PERITONEAL CAVITY: Patient drank oral contrast. There is a polypoid mass in the gastric fu ndus 2.5 cm in diameter on axial image 21. Nodular thickening of the gastric antrum is present. There is a mesenteric mass abutting the medial aspect of the cecum, displacing adjacent small bowel l oops without gross evidence of obstruction. Overall, this measures 10 cm craniocaudad by 6.5 cm silver sverse by 8 cm AP, and is new compared to previous studies. This is best shown on coronal image 34 a nd axial image 56. No other mesenteric masses. No free intraperitoneal air or fluid. No CT evidence of bowel obstructi on. APPENDIX: Not identified ABDOMINAL WALL: No masses. No hernias. PELVIS: Post hysterectomy. No masses or free fluid. BONES: Advanced bilateral hip arthritis. Dense sclerosis in the L5 vertebral body with 25% upper end plate depression new compared to 2018. This could indicate metastatic disease, or could be a subacut e osteoporotic compression deformity. OTHER: No other significant finding. IMPRESSION: New mass in the left breast New mass in the pelvis along the distal ileum and ileocecal valve region Subacute compression deformity upper endplate L5 with 25% loss of height. Bony sclerosis. This coul d be osteoporotic or pathologic. TECHNICAL DOCUMENTATION: JOB ID: [id number] Quality ID # 436: Final reports with documentation of one or more dose reduction techniques (e.g., Au tomated exposure control, adjustment of the mA and/or kV according to patient size, use of iterative reconstruction technique) 2010 [employer]- All Rights Reserved Reading location - IP/workstation name: [email or web address]
== END ==
LOC: RAD 13:19
PROVIDERS: ATTEND Internal Medicine Medical Oncology
DX: C49.A2 Gastrointestinal stromal tumor of stomach (principal); C18.0 Malignant neoplasm of cecum; M13.852 Other specified arthritis, left hip; M13.851 Other specified arthritis, right hip
CPT/HCPCS: 71260; 74177

== ENCOUNTER 2019-02-05 03:31 | Emergency (ER) | payer MEDICARE, OTHER ==
[2019-02-05] MEDS ORDERED: OXYCODONE-ACETAMINOPHEN 5-325 MG TABLET PO ONE (03:48)
[2019-02-05] MEDS ORDERED: ONDANSETRON 4 MG TAB.RAPDIS PO ONE (03:48)
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
[2019-02-05] MEDS ORDERED: MORPHINE SULFATE 10 MG/ML INJ IV ONE (03:58)
[2019-02-05] MEDS ORDERED: ONDANSETRON HCL INJ/PF 4 MG/2 ML SDV IV ONE (03:58)
--- NOTE | 2019-02-05 04:27 | RADIOLOGY REPORT (SQ) ---
CLINICAL HISTORY: pain, hx cancer COMPARISON: None. TECHNIQUE: XR HIP 2 OR MORE VIEWS 02/05/2019 3:46 AM CDT FINDINGS: There is no fracture. There is moderate degenerative narrowing of both hips. There are central pelvic surgical clips. Soft tissues are unremarkable. IMPRESSION: No acute osseous findings.
[2019-02-05 08:43] VITALS: BP 124/47
== END 2019-02-05 08:35 | disposition home or self-care (01) ==
LOC: ER 03:31
DX: M79.652 Pain in left thigh (principal); M79.605 Pain in left leg; E11.9 Type 2 diabetes mellitus without complications; I10 Essential (primary) hypertension
CPT/HCPCS: 99283; 96374; 96375; 73502; J2270; J2405

== ENCOUNTER 2019-02-05 08:48 | Day surgery (SDC) | payer MEDICARE, OTHER ==
[2019-02-05 09:44] LABS: ABSOLUTE EOSINOPHILS # (AUTO) 0.1 10^3/uL (0.0-0.6); ABSOLUTE LYMPHOCYTES (AUTO) 1.2 10^3/uL (0.5-4.7); ABSOLUTE MONOCYTES (AUTO) 0.4 10^3/uL (0.1-1.4); BASOPHILS % (AUTO) 0.9 % (0-2); EOSINOPHILS % (AUTO) 2.3 % (0-6); HEMATOCRIT 32.1 % (36.0-47.0); HEMOGLOBIN 10.5 g/dL (12.0-15.5); LYMPHOCYTES % (AUTO) 26.2 % (13-45); MEAN CORPUSCULAR HGB CONC 32.7 g/dL (32.0-36.0); MEAN CORPUSCULAR VOLUME 92 fl (80-97); MONOCYTES % (AUTO) 8.2 % (3-13); PLATELET COUNT 290 10^3/uL (150-450); RED BLOOD COUNT 3.51 10^6/uL (3.72-5.28); RED CELL DISTRIBUTION WIDTH 14.5 % (11.5-14.0); SEGMENTED NEUTROPHILS % (AUTO) 62.4 % (42-78); TOTAL CELLS COUNTED % (AUTO) 100 %; WHITE BLOOD COUNT 4.7 10^3/uL (4.0-10.5)
[2019-02-05 09:59] LABS: INTERNATIONAL RATION (INR) 1.02; PROTHROMBIN TIME 13.4 SEC (11.4-15.4)
[2019-02-05 10:00] LABS: PARTIAL THROMBOPLASTIN TIME 27.3 SEC (23.5-35.8)
[2019-02-05 10:04] LABS: BLOOD UREA NITROGEN 21 mg/dL (7-20)
[2019-02-05] MEDS ORDERED: MIDAZOLAM 2 MG/2 ML INJ ONE (11:04)
[2019-02-05] MEDS ORDERED: FENTANYL CITRATE INJ/PF 100 MCG/2 ML AMPUL ONE (11:05)
--- NOTE | 2019-02-05 12:00 | RADIOLOGY REPORT (SQ) ---
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 LIMITATIONS: None. PROCEDURE: After obtaining informed consent, the patient was brought to the CT suite and was placed supine on the CT gurney. The patient was prepped and draped in the usual sterile fashion . Axial adriano ges were obtained for targeting of theright lower quadrant mass. An appropriate access site was selec garima. IV conscious sedation was administered and physician direction by the registered nurse using 1. 0 milligrams of Versed and 25 micrograms of fentanyl. Physiologic monitoring was provided before, dur ing, and after sedation. The total sedation time was 5 minutes. Documentation face to face time, the performing proceduralist, spent monitoring the patient: 5minutes . Using an 18 gauge coaxial system and CT fluoroscopic guidance the right lower quadrant mass was cannu lated. 3 core biopsies were obtained. There were no complications. Manual pressure was held over t he biopsy site. Sterile dressing was applied. IMPRESSION: Successful CT-guided biopsy of the right lower quadrant mass. COMMENT: Patient medication list reviewed:Yes- Quality ID# [id number]:Eligible professional attests to docu menting in the medical record they obtained, updated, or reviewed the patient's current medications. Quality ID #76: The patient was prepped and draped using maximum sterile barrier technique including cap, mask, sterile gown, sterile gloves, a large sterile sheet, hand hygiene, and 2% Chlorhexidine fo r cutaneous antisepsis. When ultrasound is used, sterile ultrasound techniques are followed requiring sterile gel and sterile probes. Quality ID 145: Final reports for procedures using fluoroscopy that document radiation exposure baljit annemarie, or exposure time and number of fluorographic images (if radiation exposure indices are not avail able) Quality ID# 436: Final reports with documentation of one or more dose reduction techniques (e.g., Aut omated exposure control, adjustment of the mA and/or kV according to patient size, use of iterative r econstruction technique) TECHNICAL DOCUMENTATION: JOB ID: [id number] [employer]- All Rights Reserved rev Reading location - IP/workstation name: [email or web address]
[2019-02-05 13:58] VITALS: BP 131/59
== END 2019-02-05 14:05 | disposition home or self-care (01) ==
LOC: RAD 08:48
PROVIDERS: ATTEND Internal Medicine Medical Oncology
DX: Z85.038 Personal history of other malignant neoplasm of large intestine (principal); R93.89 Abnormal findings on diagnostic imaging of other specified body structures; Z79.01 Long term (current) use of anticoagulants; D64.9 Anemia, unspecified; C49.A2 Gastrointestinal stromal tumor of stomach; R19.03 Right lower quadrant abdominal swelling, mass and lump
CPT/HCPCS: 99283; 96374; 96375; 36415; 82962; 84520; 82565; 85025; 85610; 85730; 88342 ×2; 88341 ×2; 88305 ×2; 73502; 77012; 49180; J2250; J3010; J2270; J2405

== ENCOUNTER → 2019-04-03 | Outpatient (CLI) | payer MEDICARE, OTHER ==
[2019-04-03 09:42] LABS: ABSOLUTE EOSINOPHILS # (AUTO) 0.1 10^3/uL (0.0-0.6); ABSOLUTE MONOCYTES (AUTO) 0.4 10^3/uL (0.1-1.4); ABSOLUTE NEUT (AUTO) 2.1 10^3/uL (1.7-8.2); BASOPHILS % (AUTO) 1.2 % (0-2); HEMATOCRIT 30.9 % (36.0-47.0); HEMOGLOBIN 10.2 g/dL (12.0-15.5); LYMPHOCYTES % (AUTO) 26.7 % (13-45); MEAN CORPUSCULAR HGB CONC 32.9 g/dL (32.0-36.0); MEAN CORPUSCULAR VOLUME 91 fl (80-97); MONOCYTES % (AUTO) 9.6 % (3-13); PLATELET COUNT 314 10^3/uL (150-450); RED BLOOD COUNT 3.38 10^6/uL (3.72-5.28); RED CELL DISTRIBUTION WIDTH 15.8 % (11.5-14.0); SEGMENTED NEUTROPHILS % (AUTO) 58.5 % (42-78); TOTAL CELLS COUNTED % (AUTO) 100 %; WHITE BLOOD COUNT 3.7 10^3/uL (4.0-10.5)
[2019-04-03 09:55] LABS: APPEARANCE,URINE CLOUDY; BILIRUBIN,URINE NEGATIVE (NEGATIVE); GLUCOSE, URINE NEGATIVE (NEGATIVE); KETONES,URINE NEGATIVE (NEGATIVE); LEUKOCYTE ESTERASE,URINE LARGE (NEGATIVE); NITRITE,URINE POSITIVE (NEGATIVE); PROTEIN,URINE 30 mg/dL (NEGATIVE); URINE SPECIFIC GRAVITY 1.019; UROBILINOGEN,URINE NEGATIVE mg/dL (<2.0)
[2019-04-03 09:56] LABS: ALBUMIN 3.6 g/dL (3.5-5.0); ALKALINE PHOSPHATASE 55 U/L (38-126); ANION GAP 9 (5-19); ASPARTATE AMINO TRANSFERASE 28 U/L (14-36); BILIRUBIN,DIRECT 0.1 mg/dL (0.0-0.4); BILIRUBIN,TOTAL 0.4 mg/dL (0.2-1.3); BLOOD UREA NITROGEN 17 mg/dL (7-20); CARBON DIOXIDE 29 mmol/L (22-30); CHLORIDE 103 mmol/L (98-107); CHOLESTEROL 247.05 mg/dL (0-200); GLUCOSE 111 mg/dL (75-110); POTASSIUM 4.3 mmol/L (3.6-5.0); TOTAL PROTEIN 6.7 g/dL (6.3-8.2); TRIGLYCERIDES 199 mg/dL (<150); URIC ACID 5.5 mg/dL (2.5-7.5)
[2019-04-03 09:56] LABS: COLOR,URINE YELLOW
[2019-04-03 10:07] LABS: DIRECT LDL 165 mg/dL (<100)
[2019-04-03 10:09] LABS: VLDL CHOLESTEROL 39.8 mg/dL (10-31)
[2019-04-03 10:10] LABS: FREE T4 (FREE THYROXINE) 0.92 ng/dL (0.78-2.19)
[2019-04-03 10:24] LABS: THYROID STIMULATING HORMONE 7.83 uIU/mL (0.47-4.68)
[2019-04-05 12:36] LABS: CREATININE URINE 213.8 mg/dL (Not Estab.); MICROALBUMIN URINE 56.6 ug/mL (Not Estab.)
== END ==
LOC: OD 08:21
PROVIDERS: ATTEND Internal Medicine
DX: E11.9 Type 2 diabetes mellitus without complications (principal)
CPT/HCPCS: 36415; 80053; 80061; 81001; 82043; 82570; 83036; 84439; 84443; 84550; 85025

== ENCOUNTER → 2019-07-26 | Outpatient (CLI) | payer MEDICARE, OTHER ==
--- NOTE | 2019-07-26 12:05 | RADIOLOGY REPORT (SQ) ---
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 TECHNIQUE: CT scan of the abdomen and pelvis performed with intravenous and oral contrast using sergey jayshree scanning technique with dynamic intravenous contrast injection. Images reviewed with lung, soft t issue, and bone windows. Reconstructed coronal and sagittal MPR images reviewed. Delayed images for e valuation of the urinary system also acquired. All images stored on PACS. All CT scanners at this facility use dose modulation, iterative reconstruction, and/or weight based d osing when appropriate to reduce radiation dose to as low as reasonably achievable (ALARA). [facility]: Dose Right [facility]: CareDose [facility]: Dose Right [facility]: Teradose 4D [facility]: [employer] CONTRAST TYPE AND DOSE: contrast/concentration: Isovue 350.00 mg/ml; Total Contrast Delivered: 88.0 ml; Total Saline Delivered: 70.0 ml RENAL FUNCTION: Creatinine 1.1 RADIATION DOSE: CT Rad equipment meets quality standard of care and radiation dose reduction techniq ues were employed. CTDIvol: 7.8 - 8.2 mGy. DLP: 1095 mGy-cm.. LIMITATIONS: None. FINDINGS: LOWER CHEST: See separate dedicated dictation same date. LIVER: Liver dome masses have developed. There appear to be 2 masses which are partially confluent. The smaller measures up to 4.3 cm transverse dimension. The larger measures close to 7 cm. There i s also a lateral segment left lobe lesion now noted which measures up to 2 cm. SPLEEN: Normal size. No focal lesions. PANCREAS: No masses. No significant calcifications. No adjacent inflammation or peripancreatic fluid collections. Pancreatic duct not dilated. GALLBLADDER: No identified stones by CT criteria. No inflammatory changes to suggest cholecystitis. ADRENAL GLANDS: Right adrenal normal. Large heterogeneous mass once again noted adjacent to if not i nvolving the left adrenal and directly abutting and exerting mass effect on the adjacent stomach. Ma ss measures up to 6 cm maximal transverse dimension. It looks slightly larger. RIGHT KIDNEY AND URETER: No solid masses. No significant calcification. No hydronephrosis or hydroure ter. LEFT KIDNEY AND URETER: No solid masses. No significant calcification. No hydronephrosis or hydrouret er. AORTA AND VESSELS: Atherosclerotic without aneurysm. No venous clot detected. RETROPERITONEUM: No retroperitoneal adenopathy, hemorrhage or masses. BOWEL AND PERITONEAL CAVITY: Moderate stool. Small bowel anastomosis at the level of the umbilicus t o left of midline. No evidence of bowel obstruction or gross ascites or abnormal gas. Mid mesenteri c bulky soft tissue mass measures almost 10 cm in transverse dimension. This mass is larger. APPENDIX: Not seen. PELVIS: No significant masses. Normal bladder. No free fluid. ABDOMINAL WALL: No masses. No hernias. BONES: Postoperative and degenerative changes with chronic L5 compression fracture. Marked hip degen erative change bilaterally. OTHER: No other significant finding. IMPRESSION: 1. 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 Includes new liver lesions, enlarging left adrenal mass, enlarging mid mesenteric mass. TECHNICAL DOCUMENTATION: JOB ID: [id number] Quality ID # 436: Final reports with documentation of one or more dose reduction techniques (e.g., Au tomated exposure control, adjustment of the mA and/or kV according to patient size, use of iterative reconstruction technique) 2010 [employer]- All Rights Reserved Reading location - IP/workstation name: [email or web address]
--- NOTE | 2019-07-26 13:14 | RADIOLOGY REPORT (SQ) ---
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 Images reviewed with lung, soft tissue and bone windows. Reconstructed coronal and sagittal MPR and MIP images reviewed. All images stored on PACS. All CT scanners at this facility use dose modulation, iterative reconstruction, and/or weight based d osing when appropriate to reduce radiation dose to as low as reasonably achievable (ALARA). [facility]: Dose Right [facility]: CareDose [facility]: Dose Right [facility]: Teradose 4D [facility]: [employer] CONTRAST TYPE AND DOSE: 88 mL Omnipaque 350- low osmolar. RENAL FUNCTION: Creatinine 1.1 RADIATION DOSE: . LIMITATIONS: None. FINDINGS: LUNGS AND PLEURA: Stable subpleural scarring bilaterally. This is minimal. There is basi lar atelectasis. No consolidation or effusions. No suspicious pulmonary nodules. HILAR AND MEDIASTINAL STRUCTURES: No identified masses or abnormal nodes. HEART AND VASCULAR STRUCTURES: No aneurysm or dissection. No central pulmonary emboli. No pericardi al effusion. HARDWARE: [id number] is in place. UPPER ABDOMEN: There is metastatic disease in the liver. Please refer to the CT abdomen pelvis for f urther discussion. Gastric mass is again noted. THYROID AND OTHER SOFT TISSUES: No masses. No adenopathy. BONES: There are degenerative changes in the spine along with postsurgical changes. Hardware appears unchanged when compared to prior study. OTHER: Large left breast mass previously described is significantly smaller and may represent resolvi ng hematoma. IMPRESSION: No evidence of metastatic disease in the chest. Metastatic disease is noted in the live r. Large gastric mass is again noted. TECHNICAL DOCUMENTATION: JOB ID: [id number] Quality ID # 436: Final reports with documentation of one or more dose reduction techniques (e.g., Au tomated exposure control, adjustment of the mA and/or kV according to patient size, use of iterative reconstruction technique) 2010 [employer]- All Rights Reserved Reading location - IP/workstation name: [email or web address]
== END ==
LOC: RAD 08:27
PROVIDERS: ATTEND Internal Medicine Hematology & Oncology
DX: C49.A2 Gastrointestinal stromal tumor of stomach (principal); C18.9 Malignant neoplasm of colon, unspecified; C78.7 Secondary malignant neoplasm of liver and intrahepatic bile duct
CPT/HCPCS: 71260; 74177; 82565

== ENCOUNTER → 2020-01-12 | Outpatient (CLI) | payer MEDICARE, OTHER ==
--- NOTE | 2020-01-12 12:18 | RADIOLOGY REPORT (SQ) ---
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 0 ml; Total Saline Delivered: 72.0 ml RENAL FUNCTION: 0.8 COMPARISON: None. TECHNIQUE: CT scan of the chest performed using helical scanning technique with dynamic intravenous contrast injection. Images reviewed with lung, soft tissue and bone windows. Reconstructed coronal a nd sagittal MPR images reviewed. All images stored on PACS. All CT scanners at this facility use dose modulation, iterative reconstruction, and/or weight based d osing when appropriate to reduce radiation dose to as low as reasonably achievable (ALARA). [facility]: Dose Right [facility]: CareDose [facility]: Dose Right [facility]: Teradose 4D [facility]: Smart [employer] RADIATION DOSE: CT Rad equipment meets quality standard of care and radiation dose reduction techniq ues were employed. CTDIvol: 10.7 - 13.2 mGy. DLP: 1858 mGy-cm. . LIMITATIONS: None. FINDINGS: AXILLAE: No adenopathy. CHEST WALL: No masses. No subcutaneous air. LUNGS: Consolidation in the lung bases either atelectasis or pneumonia. There is some linear atelect asis in the right upper lobe as well. PLEURA: Small bilateral pleural effusions. THYROID: No masses or significant asymmetry. HILAR AND MEDIASTINAL STRUCTURES: No identified masses or abnormal nodes. AORTA AND GREAT VESSELS: No aneurysm. No dissection. PULMONARY ARTERIES: No identified pulmonary emboli. Study not optimized for the pulmonary arteries. HEART: No pericardial effusion. HARDWARE AND LIFELINES: [id number] is in place on the left. BONES: Postsurgical changes in the spine no evidence of metastatic disease. OTHER: No other significant finding. IMPRESSION: Consolidative changes in both lung bases most likely atelectasis although pneumonia silvio ot be excluded. Small bilateral pleural effusions. COMPARISON: None. RADIATION DOSE: CT Rad equipment meets quality standard of care and radiation dose reduction techniq ues were employed. CTDIvol: 10.7 - 13.2 mGy. DLP: 1858 mGy-cm. mGy. TECHNIQUE: CT scan of the abdomen and pelvis performed with intravenous and oral contrast using sergey jayshree scanning technique with dynamic intravenous contrast injection. Images reviewed with lung, soft tissue and bone windows. Reconstructed coronal and sagittal MPR images reviewed. Delayed images for evaluation of the urinary system also acquired and evaluated. All images stored on PACS. All CT scanners at this facility use dose modulation, iterative reconstruction, and/or weight based d osing when appropriate to reduce radiation dose to as low as reasonably achievable (ALARA). [facility]: Dose Right [facility]: SureCare [facility]: Dose Right [facility]: Teradose 4D [facility]: [employer] FINDINGS: LIVER: Persistent abnormal attenuation throughout the majority of the right lobe of the li shon. The lesion in the left lobe has increased in size and now measures 5.7 cm in greatest diameter compared to 2.2 cm on previous exam. There is a new 3.3 cm lesion in the inferior right lobe of the liver. SPLEEN: Heterogeneous attenuation now 1 the medial superior aspect of the spleen. Metastatic disease is suspected. PANCREAS: Atrophic. GALLBLADDER: Surgically absent. ADRENAL GLANDS: No significant masses or asymmetry. RIGHT KIDNEY AND URETER: No solid masses. No significant calcifications. No hydronephrosis or hyd roureter. LEFT KIDNEY AND URETER: No solid masses. No significant calcifications. No hydronephrosis or hydr oureter. AORTA AND VESSELS: No aneurysm. No dissection. Renal arteries, SMA, celiac without stenosis. RETROPERITONEUM: No retroperitoneal adenopathy, hemorrhage or masses. LARGE AND SMALL BOWEL: Large mass in the left upper quadrant is again noted. It has increased in siz e. APPENDIX: Normal. ABDOMINAL WALL: No hernia or masses. PERITONEAL CAVITY: Large heterogeneous enhancing mass centered in the pelvis. The mass has increased in size with a large component now extending into the right lower quadrant adjacent to the anterior abdominal wall. There is increasing ascites throughout the abdomen as well. There are scattered per itoneal implants. PELVIS: As above. BONES: Postsurgical changes in the spine. OTHER: No other significant finding. IMPRESSION: Increasing tumor burden throughout the peritoneal cavity as described. Numerous periton eal implants. There is increasing abdominal ascites as well. Increasing metastatic disease to the l iver a new metastatic lesion is suspected in the spleen although this could represent abnormal attenu ation secondary to mass effect from the adjacent tumor burden. TECHNICAL DOCUMENTATION: JOB ID: [id number] Quality ID # [id number]: Final reports with documentation of one or more dose reduction techniques (e.g., Au tomated exposure control, adjustment of the mA and/or kV according to patient size, use of iterative reconstruction technique) 2010 [employer]- All Rights Reserved Reading location - IP/workstation name: [facility]
--- NOTE | 2020-01-12 12:18 | RADIOLOGY REPORT (SQ) ---
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 0 ml; Total Saline Delivered: 72.0 ml RENAL FUNCTION: 0.8 COMPARISON: None. TECHNIQUE: CT scan of the chest performed using helical scanning technique with dynamic intravenous contrast injection. Images reviewed with lung, soft tissue and bone windows. Reconstructed coronal a nd sagittal MPR images reviewed. All images stored on PACS. All CT scanners at this facility use dose modulation, iterative reconstruction, and/or weight based d osing when appropriate to reduce radiation dose to as low as reasonably achievable (ALARA). [facility]: Dose Right [facility]: CareDose [facility]: Dose Right [facility]: Teradose 4D [facility]: Smart [employer] RADIATION DOSE: CT Rad equipment meets quality standard of care and radiation dose reduction techniq ues were employed. CTDIvol: 10.7 - 13.2 mGy. DLP: 1858 mGy-cm. . LIMITATIONS: None. FINDINGS: AXILLAE: No adenopathy. CHEST WALL: No masses. No subcutaneous air. LUNGS: Consolidation in the lung bases either atelectasis or pneumonia. There is some linear atelect asis in the right upper lobe as well. PLEURA: Small bilateral pleural effusions. THYROID: No masses or significant asymmetry. HILAR AND MEDIASTINAL STRUCTURES: No identified masses or abnormal nodes. AORTA AND GREAT VESSELS: No aneurysm. No dissection. PULMONARY ARTERIES: No identified pulmonary emboli. Study not optimized for the pulmonary arteries. HEART: No pericardial effusion. HARDWARE AND LIFELINES: [id number] is in place on the left. BONES: Postsurgical changes in the spine no evidence of metastatic disease. OTHER: No other significant finding. IMPRESSION: Consolidative changes in both lung bases most likely atelectasis although pneumonia silvio ot be excluded. Small bilateral pleural effusions. COMPARISON: None. RADIATION DOSE: CT Rad equipment meets quality standard of care and radiation dose reduction techniq ues were employed. CTDIvol: 10.7 - 13.2 mGy. DLP: 1858 mGy-cm. mGy. TECHNIQUE: CT scan of the abdomen and pelvis performed with intravenous and oral contrast using sergey jayshree scanning technique with dynamic intravenous contrast injection. Images reviewed with lung, soft tissue and bone windows. Reconstructed coronal and sagittal MPR images reviewed. Delayed images for evaluation of the urinary system also acquired and evaluated. All images stored on PACS. All CT scanners at this facility use dose modulation, iterative reconstruction, and/or weight based d osing when appropriate to reduce radiation dose to as low as reasonably achievable (ALARA). [facility]: Dose Right [facility]: SureCare [facility]: Dose Right [facility]: Teradose 4D [facility]: [employer] FINDINGS: LIVER: Persistent abnormal attenuation throughout the majority of the right lobe of the li shon. The lesion in the left lobe has increased in size and now measures 5.7 cm in greatest diameter compared to 2.2 cm on previous exam. There is a new 3.3 cm lesion in the inferior right lobe of the liver. SPLEEN: Heterogeneous attenuation now 1 the medial superior aspect of the spleen. Metastatic disease is suspected. PANCREAS: Atrophic. GALLBLADDER: Surgically absent. ADRENAL GLANDS: No significant masses or asymmetry. RIGHT KIDNEY AND URETER: No solid masses. No significant calcifications. No hydronephrosis or hyd roureter. LEFT KIDNEY AND URETER: No solid masses. No significant calcifications. No hydronephrosis or hydr oureter. AORTA AND VESSELS: No aneurysm. No dissection. Renal arteries, SMA, celiac without stenosis. RETROPERITONEUM: No retroperitoneal adenopathy, hemorrhage or masses. LARGE AND SMALL BOWEL: Large mass in the left upper quadrant is again noted. It has increased in siz e. APPENDIX: Normal. ABDOMINAL WALL: No hernia or masses. PERITONEAL CAVITY: Large heterogeneous enhancing mass centered in the pelvis. The mass has increased in size with a large component now extending into the right lower quadrant adjacent to the anterior abdominal wall. There is increasing ascites throughout the abdomen as well. There are scattered per itoneal implants. PELVIS: As above. BONES: Postsurgical changes in the spine. OTHER: No other significant finding. IMPRESSION: Increasing tumor burden throughout the peritoneal cavity as described. Numerous periton eal implants. There is increasing abdominal ascites as well. Increasing metastatic disease to the l iver a new metastatic lesion is suspected in the spleen although this could represent abnormal attenu ation secondary to mass effect from the adjacent tumor burden. TECHNICAL DOCUMENTATION: JOB ID: [id number] Quality ID # [id number]: Final reports with documentation of one or more dose reduction techniques (e.g., Au tomated exposure control, adjustment of the mA and/or kV according to patient size, use of iterative reconstruction technique) 2010 [employer]- All Rights Reserved Reading location - IP/workstation name: [facility]
== END ==
LOC: RAD 10:14
PROVIDERS: ATTEND Internal Medicine Hematology & Oncology
DX: C49.A2 Gastrointestinal stromal tumor of stomach (principal); C18.9 Malignant neoplasm of colon, unspecified; J90 Pleural effusion, not elsewhere classified
CPT/HCPCS: 71260; 74177; 82565

== ENCOUNTER 2020-01-17 00:33 | Inpatient (IN) | payer MEDICARE, OTHER ==
--- NOTE | 2020-01-17 01:05 | EKG REPORT ---
SEVERITY:- BORDERLINE ECG - SINUS RHYTHM LEFT AXIS DEVIATION BORDERLINE R WAVE PROGRESSION, ANTERIOR LEADS : Confirmed by: Fanny Jara MD 17-Jan-2020 01:04:23
[2020-01-17 01:17] LABS: ABSOLUTE EOSINOPHILS # (AUTO) 0.1 10^3/uL (0.0-0.6); ABSOLUTE MONOCYTES (AUTO) 0.9 10^3/uL (0.1-1.4); BASOPHILS % (AUTO) 0.4 % (0-2); MEAN CORPUSCULAR VOLUME 87 fl (80-97); MONOCYTES % (AUTO) 15.3 % (3-13); TOTAL CELLS COUNTED % (AUTO) 100 %
[2020-01-17 01:20] LABS: ABSOLUTE LYMPHOCYTES (AUTO) 0.6 10^3/uL (0.5-4.7); ABSOLUTE NEUT (AUTO) 4.3 10^3/uL (1.7-8.2); EOSINOPHILS % (AUTO) 1.9 % (0-6); HEMATOCRIT 20.3 % (36.0-47.0); LYMPHOCYTES % (AUTO) 9.8 % (13-45); MEAN CORPUSCULAR HGB CONC 33.5 g/dL (32.0-36.0); PLATELET COUNT 558 10^3/uL (150-450); RED BLOOD COUNT 2.35 10^6/uL (3.72-5.28); RED CELL DISTRIBUTION WIDTH 15.5 % (11.5-14.0); SEGMENTED NEUTROPHILS % (AUTO) 72.6 % (42-78); WHITE BLOOD COUNT 5.9 10^3/uL (4.0-10.5)
[2020-01-17 01:21] LABS: HEMOGLOBIN 6.8 g/dL (12.0-15.5)
[2020-01-17 01:34] LABS: ALBUMIN 3.1 g/dL (3.5-5.0); ALKALINE PHOSPHATASE 115 U/L (38-126); ASPARTATE AMINO TRANSFERASE 29 U/L (14-36); CARBON DIOXIDE 26 mmol/L (22-30); CHLORIDE 98 mmol/L (98-107); TOTAL PROTEIN 7.1 g/dL (6.3-8.2)
[2020-01-17 01:36] LABS: ANION GAP 9 (5-19); BLOOD UREA NITROGEN 12 mg/dL (7-20); CALCIUM 8.8 mg/dL (8.4-10.2); GLUCOSE 125 mg/dL (75-110); POTASSIUM 3.7 mmol/L (3.6-5.0)
[2020-01-17 01:37] LABS: BILIRUBIN,DIRECT 0.2 mg/dL (0.0-0.4); BILIRUBIN,TOTAL 0.7 mg/dL (0.2-1.3)
--- NOTE | 2020-01-17 01:39 | RADIOLOGY REPORT (SQ) ---
EXAM DESCRIPTION: XR CHEST 1 VIEW COMPLETED DATE/TME: 01/17/2020 00:39 CLINICAL HISTORY: 84 years, Female, shortness of breath COMPARISON: None. NUMBER OF VIEWS: TECHNIQUE: LIMITATIONS: None. FINDINGS: No evidence of pulmonary infiltrate or pleural effusion. There is platelike atelectasis at the right lung base. No evidence of pleural effusion. The heart and mediastinum are unremarkable. Pulmonary vascularity appears normal. There are atherosclerotic changes and tortuosity of the thoracic aorta. IMPRESSION: No acute finding. copyright 2010 [employer]- All Rights Reserved
--- NOTE | 2020-01-17 01:39 | ER Document Report ---
ED General - General Chief Complaint: Shortness Of Breath Stated Complaint: SHORTNESS OF BREATH Time Seen by Provider: 01/17/20 01:24 Notes: Patient is an 84-year-old female that comes from home by EMS for chief complaint of 1 week of worsening shortness of breath, weakness, and specifically shortness of breath on exertion. She states at rest she does okay but when she tries to get up and walk she loses her breath very rapidly. She denies dizziness, chest pain, passing out, fever, cough, vomiting, or abnormal stools. Past medical history of colon cancer, she states she is not currently on radiation or chemotherapy, she follows with Dr. Law. Past medical history was includes type 2 diabetes, hypothyroidism, hypertension, GERD. She lives at home. TRAVEL OUTSIDE OF THE [place] IN LAST 30 DAYS: No - Related Data Allergies/Adverse Reactions: lisinopril [From Zestril] Allergy (Intermediate, Verified 01/17/20 00:36) Edema Past Medical History - General Information source: Patient - Social History Smoking Status: Never Smoker Frequency of alcohol use: None Drug Abuse: None Lives with: Family Family History: None - Past Medical History Cardiac Medical History: Reports: Hx Atrial Fibrillation, Hx Hypercholesterolemia, Hx Hypertension Denies: Hx Heart Attack Pulmonary Medical History: Denies: Hx Asthma, Hx Bronchitis, Hx COPD - WEARS CPAP, Hx Pneumonia Neurological Medical History: Denies: Hx Cerebrovascular Accident, Hx Seizures Endocrine Medical History: Reports: Hx Diabetes Mellitus Type 2 Renal/ Medical History: Denies: Hx Peritoneal Dialysis Malignancy Medical History: 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 Denies: Hx Ulcer Musculoskeletal Medical History: Reports Hx Arthritis Psychiatric Medical History: Reports: Hx Depression Past Surgical History: Reports: Hx Appendectomy, Hx Bowel Surgery, Hx Hysterecto my. Denies: Hx Open Heart Surgery - Immunizations Hx Diphtheria, Pertussis, Tetanus Vaccination: No Hx Pneumococcal Vaccination: 07/14/12 Review of Systems - Review of Systems Constitutional: No symptoms reported EENT: No symptoms reported Cardiovascular: See HPI Respiratory: See HPI Gastrointestinal: No symptoms reported Genitourinary: No symptoms reported Female Genitourinary: No symptoms reported Musculoskeletal: No symptoms reported Skin: No symptoms reported Hematologic/Lymphatic: No symptoms reported Neurological/Psychological: No symptoms reported Physical Exam - Vital signs Vitals: Temp Pulse Resp BP Pulse Ox 99.3 F 97 25 H 160/71 H 100 01/17/20 00:35 01/17/20 00:35 01/17/20 00:35 01/17/20 00:35 01/17/20 00:35 - Notes Notes: GENERAL: Alert, interacts well. No acute distress. HEAD: Normocephalic, atraumatic. EYES: Pupils equal, round, and reactive to light. Extraocular movements intact. ENT: Oral mucosa moist, tongue midline. Oropharynx unremarkable. Airway patent. N NECK: Full range of motion. Supple. Trachea midline. No lymphadenopathy. LUNGS: Bilateral rales heard in the lower lung mcdaniel. No tachypnea. No respiratory distress. Non-tender chest wall. HEART: Regular rate and rhythm. No murmur ABDOMEN: Soft, non-tender. Non-distended. Bowel sounds present in all 4 quadrants. GENITOURINARY: Deferred EXTREMITIES: Moves all 4 extremities spontaneously. No edema, normal radial and dorsalis pedis pulses bilaterally. No cyanosis. BACK: no cervical, thoracic, lumbar midline tenderness. No saddle anesthesia, normal distal neurovascular exam. Moves all extremities in full range of motion. NEUROLOGICAL: Alert and oriented x3. Normal speech. Cranial nerves II through XII grossly intact. Strength 5/5 in all extremities. PSYCH: Normal affect, normal mood. SKIN: Warm, dry, normal turgor. No rashes or lesions noted. Course - Re-evaluation Re-evalutation: Patient is alert and well-appearing, when she performs position changes or gets up she becomes tachycardic. She does have rales on exam in both lower lung mcdaniel but she does not have respiratory distress. She is somewhat hypertensive as well. No lower extremity edema. No reported history of CHF. Work-up pending. CBC shows significant anemia with hemoglobin of 6.8, however this is not microcytic. Patient has a known gastrointestinal mass, I suspect this could be bleeding. I did perform a rectal exam and this did not show any bleeding or concerning findings however. Chest x-ray is negative for acute findings, remaining work-up was unremarkable except BNP is elevated at 1800s. Previous BMPs were in the 100s. I discussed with patient, patient will be transfused, given Lasix, I discussed with Dr. Love. Recommendation is admission to the hospitalist for anemia requiring transfusion, suspected CHF component. Called and spoke with Dr. Steele, patient's provider, patient accepted to telemetry for admission. - Vital Signs Vital signs: Temp Pulse Resp BP Pulse Ox 98.2 F 94 16 157/62 H 91 L 01/17/20 06:45 01/17/20 06:45 01/17/20 06:45 01/17/20 06:45 01/17/20 06:45 - Laboratory Result Diagrams: 01/17/20 00:57 01/17/20 00:57 Laboratory results interpreted by me: 01/17/20 01/17/20 01/17/20 00:57 00:57 00:57 RBC 2.35 L Hgb 6.8 L Hct 20.3 L RDW 15.5 H Plt Count 558 H Lymph % (Auto) 9.8 L [place] % (Auto) 15.3 H Sodium 133.4 L Glucose 125 H NT-Pro-B Natriuret Pep 1830 H Albumin 3.1 L Crossmatch 01/17/20 01:50 RBC Hgb Hct RDW Plt Count Lymph % (Auto) [place] % (Auto) Sodium Glucose NT-Pro-B Natriuret Pep Albumin Crossmatch See Detail - EKG Interpretation by Me Additional EKG results interpreted by me: EKG shows sinus rhythm at a rate of 95, left axis deviation, QTC 458. Poor R wave progression in anterior leads. No T wave inversions or ST segment changes in consecutive leads. Discharge - Discharge Clinical Impression: Anemia requiring transfusions, Shortness of breath, Elevated brain natriuretic peptide (BNP) level Condition: Stable Disposition: ADMITTED INPATIENT Admitting Provider: Cedric Unit Admitted: Telemetry
[2020-01-17 01:48] LABS: CREATINE KINASE MB 0.43 ng/mL (<4.55)
[2020-01-17 01:49] LABS: TROPONIN I < 0.012 ng/mL
[2020-01-17 02:13] LABS: INTERNATIONAL RATION (INR) 1.21; PROTHROMBIN TIME 15.4 SEC (11.4-15.4)
[2020-01-17 02:14] LABS: PARTIAL THROMBOPLASTIN TIME 34.9 SEC (23.5-35.8)
[2020-01-17] MEDS ORDERED: NORMAL SALINE 250 ML IV PRN ×2 (02:46)
[2020-01-17] MEDS ORDERED: FUROSEMIDE INJ/PF 20 MG/2 ML SDV IV ONE (02:48)
[2020-01-17 04:13] LABS: APPEARANCE,URINE SLIGHTLY-CLOUDY; BILIRUBIN,URINE NEGATIVE (NEGATIVE); COLOR,URINE YELLOW; GLUCOSE, URINE NEGATIVE (NEGATIVE); KETONES,URINE NEGATIVE (NEGATIVE); LEUKOCYTE ESTERASE,URINE TRACE (NEGATIVE); NITRITE,URINE NEGATIVE (NEGATIVE); PROTEIN,URINE 100 mg/dL (NEGATIVE); URINE SPECIFIC GRAVITY 1.013
[2020-01-17] MEDS ORDERED: GLUCAGON,HUMAN RECOMB 1 MG INJ IM PRN (06:30)
[2020-01-17] MEDS ORDERED: DEXTROSE 40% GEL 15 GM TUBE X 2 PO PRN (06:30)
[2020-01-17] MEDS ORDERED: DEXTROSE 40% GEL 15 GM TUBE PO PRN (06:30)
[2020-01-17] MEDS ORDERED: DEXTROSE 50%-WATER SYRINGE 12.5 GM/25 ML DOSE IV PRN (06:30)
[2020-01-17] MEDS ORDERED: DEXTROSE 50%-WATER SYRINGE 25 GM/50 ML DOSE IV PRN (06:30)
[2020-01-17] MEDS: INSULIN LISPRO 100 UNIT/ML 3 ML VIAL SUBCUT SCH ×4 (07:50→22:00)
--- NOTE | 2020-01-17 08:30 | PDOC CONSULTATION ---
Consultation Consult Date: 01/17/20 Provider Consulted: NADEEM GAMBINO Consult reason:: Hematology/Oncology consultation was requested for patient on active treatment for GIST in her liver/abdomen. She also presented to the hospital with acute anemia, not thought to be secondary to GI bleed. History of Present Illness Admission Date/PCP: 01/17/20 03:21 NADEEM GAMBINO MD History of Present Illness: DAVID MANUEL is a 84 year old female who was diagnosed with GI Stromal Tumor in 2012. She had been maintained on Gleevec oral chemo, but recent CT scans earlier this month showed progression of disease. Patient presented with a 2 week history of fatigue and dyspnea. She has also had dry eyes. She was seen in our office on 12/17/2019 at which time her HGB was 8.7. Anemia work-up in our office earlier this year showed normal ferritin and iron panel. Past Medical History Cardiac Medical History: Reports: Atrial Fibrillation, Hyperlipidema, Hyp ertension Denies: Myocardial Infarction Pulmonary Medical History: Denies: Asthma, Bronchitis, Chronic Obstructive Pulmonary Disease (COPD) - WEARS CPAP, Pneumonia Neurological Medical History: Denies: Seizures Endocrine Medical History: Reports: Diabetes Mellitus Type 2 Malignancy Medical History: Reports: Colorectal Cancer - and GIST GI Medical History: Reports: Gastroesophageal Reflux Disease Musculoskeltal Medical History: Reports: Arthritis Psychiatric Medical History: Reports: Depression Hematology: Reports: Anemia Denies: Sickle Cell Disease Past Surgical History Past Surgical History: Reports: Appendectomy, Hysterectomy Social History Lives with: Family Smoking Status: Former Smoker Electronic Cigarette use?: No Number of Years Smokin Frequency of Alcohol Use: None Hx Recreational Drug Use: No Drugs: None Hx Prescription Drug Abuse: No Past Social History Note: , 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 Family History Family History: None Parental Family History Reviewed: Yes - Mother of unknown cancer Children Family History Reviewed: No Sibling(s) Family History Reviewed.: Yes - 2 sisters with breast cancer Medication/Allergy Home Medications: Aspirin [Aspirin 325 mg Tablet] 325 mg PO DAILY 01/17/20 Atenolol [Tenormin] 25 mg PO QHS 01/17/20 Duloxetine HCl 60 mg PO DAILY 01/17/20 Ergocalciferol (Vitamin D2) [Vitamin D2] 50,000 unit PO .QWEEKLY 01/17/20 Esomeprazole Magnesium 40 mg PO QHS 01/17/20 Ferrous Gluconate 324 mg PO DAILY 01/17/20 Imatinib Mesylate 400 mg PO Q12 01/17/20 Levothyroxine Sodium [Synthroid 50 Mcg Tablet] 50 mcg PO Q6AM 01/17/20 Metformin HCl 500 mg PO DAILY 01/17/20 Olmesartan/Hydrochlorothiazide [Olmesartan-Hctz 40-25 mg Tab] 1 each PO DAILY 01/17/20 Allergies/Adverse Reactions: lisinopril [From Zestril] Allergy (Intermediate, Verified 01/17/20 00:36) Edema Review of Systems Constitutional: ABSENT: fever(s), headache(s) Eyes: ABSENT: visual disturbances Ears: PRESENT: hearing changes Nose, Mouth, and Throat: ABSENT: sore throat Cardiovascular: ABSENT: chest pain Respiratory: PRESENT: dyspnea Gastrointestinal: ABSENT: constipation, nausea Genitourinary: ABSENT: dysuria Musculoskeletal: ABSENT: back pain, joint swelling Integumentary: ABSENT: rash Neurological: PRESENT: weakness Endocrine: PRESENT: cold intolerance Hematologic/Lymphatic: ABSENT: easy bleeding Physical Exam Vital Signs: Temp Pulse Resp BP Pulse Ox 98.6 F 91 16 145/53 H 91 L 01/17/20 07:23 01/17/20 07:23 01/17/20 07:23 01/17/20 07:23 01/17/20 07:23 Intake & Output 01/16/20 01/17/20 01/18/20 06:59 06:59 06:59 Intake Total 0 400 Output Total 620 Balance -620 400 Weight 86.1 kg General appearance: PRESENT: no acute distress, well-developed, well-nourished Exam: Overweight, 84 year old female Head exam: PRESENT: normocephalic Eye exam: PRESENT: EOMI, other - Dry eyes. Mouth exam: PRESENT: tongue midline Neck exam: ABSENT: lymphadenopathy, tenderness Respiratory exam: PRESENT: clear to auscultation cabrera, unlabored Cardiovascular exam: PRESENT: RRR GI/Abdominal exam: PRESENT: soft, tenderness Extremities exam: ABSENT: pedal edema Musculoskeletal exam: PRESENT: normal inspection Neurological exam: PRESENT: alert, awake Psychiatric exam: PRESENT: appropriate affect Skin exam: PRESENT: normal color Results Laboratory Results: 01/17/20 00:57 01/17/20 00:57 01/17/20 01/17/20 01/17/20 00:57 00:57 01:50 WBC 5.9 RBC 2.35 L Hgb 6.8 L Hct 20.3 L MCV 87 MCH 29.0 MCHC 33.5 RDW 15.5 H Plt Count 558 H Seg Neutrophils % 72.6 Sodium 133.4 L Potassium 3.7 Chloride 98 Carbon Dioxide 26 Anion Gap 9 BUN 12 Creatinine 0.78 Est GFR ( Amer) > 60 Glucose 125 H Calcium 8.8 Total Bilirubin 0.7 AST 29 Alkaline Phosphatase 115 Total Protein 7.1 Albumin 3.1 L Urine Color Urine Appearance Urine pH Ur Specific Girdler Urine Protein Urine Glucose (UA) Urine Ketones Urine Blood Urine Nitrite Ur Leukocyte Esterase Urine WBC (Auto) Urine RBC (Auto) Blood Type O POSITIVE Antibody Screen NEGATIVE 01/17/20 03:42 WBC RBC Hgb Hct MCV MCH MCHC RDW Plt Count Seg Neutrophils % Sodium Potassium Chloride Carbon Dioxide Anion Gap BUN Creatinine Est GFR ( Amer) Glucose Calcium Total Bilirubin AST Alkaline Phosphatase Total Protein Albumin Urine Color YELLOW Urine Appearance SLIGHTLY-CLOUDY Urine pH 7.0 Ur Specific Girdler 1.013 Urine Protein 100 H Urine Glucose (UA) NEGATIVE Urine Ketones NEGATIVE Urine Blood SMALL H Urine Nitrite NEGATIVE Ur Leukocyte Esterase TRACE H Urine WBC (Auto) 12 Urine RBC (Auto) 2 Blood Type Antibody Screen 01/17/20 01/17/20 00:57 00:57 CK-MB (CK-2) 0.43 Troponin I < 0.012 NT-Pro-B Natriuret Pep 1830 H Impressions: Chest X-Ray 01/17/20 00:39 IMPRESSION: No acute finding. copyright 2011 [employer]- All Rights Reserved Assessment & Plan - Diagnosis (1) GIST (gastrointestinal stromal tumor), malignant Is this a current diagnosis for this admission?: Yes Plan: CT scans last week showed progression of disease. She has been maintained on Gleevec. I will stop this medication, as it no longer appears to be working. I will discuss new chemo options with the patient on discharge. (2) Anemia Qualifiers: Anemia type: unspecified type Qualified Code(s): D64.9 - Anemia, unspecified Is this a current diagnosis for this admission?: Yes Plan: Ferritin last month was normal/high. I will check LDH, B12, Folate. Agree with transfusions. I will follow with you.
[2020-01-17 09:23] LABS: ABSOLUTE LYMPHOCYTES (AUTO) 0.5 10^3/uL (0.5-4.7); ABSOLUTE MONOCYTES (AUTO) 0.6 10^3/uL (0.1-1.4); ABSOLUTE NEUT (AUTO) 4.4 10^3/uL (1.7-8.2); ABSOLUTE RETICS # 0.055 10^6/uL (0.028-0.122); BASOPHILS % (AUTO) 0.5 % (0-2); EOSINOPHILS % (AUTO) 0.9 % (0-6); HEMATOCRIT 25.4 % (36.0-47.0); HEMOGLOBIN 8.7 g/dL (12.0-15.5); LYMPHOCYTES % (AUTO) 8.1 % (13-45); MEAN CORPUSCULAR HEMOGLOBIN 29.3 pg (27.0-33.4); MEAN CORPUSCULAR HGB CONC 34.3 g/dL (32.0-36.0); MEAN CORPUSCULAR VOLUME 85 fl (80-97); MONOCYTES % (AUTO) 11.2 % (3-13); PLATELET COUNT 582 10^3/uL (150-450); RED BLOOD COUNT 2.98 10^6/uL (3.72-5.28); RED CELL DISTRIBUTION WIDTH 15.2 % (11.5-14.0); RETICULOCYTE COUNT (AUTO) 1.86 % (0.66-2.85); SEGMENTED NEUTROPHILS % (AUTO) 79.3 % (42-78); TOTAL CELLS COUNTED % (AUTO) 100 %; WHITE BLOOD COUNT 5.6 10^3/uL (4.0-10.5)
[2020-01-17 11:02] LABS: FOLATE 4.71 ng/mL (>2.76)
[2020-01-17 15:59] LABS: ABSOLUTE EOSINOPHILS # (AUTO) 0.1 10^3/uL (0.0-0.6); ABSOLUTE LYMPHOCYTES (AUTO) 0.5 10^3/uL (0.5-4.7); ABSOLUTE MONOCYTES (AUTO) 0.7 10^3/uL (0.1-1.4); ABSOLUTE NEUT (AUTO) 4.3 10^3/uL (1.7-8.2); BASOPHILS % (AUTO) 0.3 % (0-2); EOSINOPHILS % (AUTO) 0.9 % (0-6); HEMATOCRIT 25.9 % (36.0-47.0); LYMPHOCYTES % (AUTO) 9.1 % (13-45); MEAN CORPUSCULAR HEMOGLOBIN 29.6 pg (27.0-33.4); MEAN CORPUSCULAR HGB CONC 34.7 g/dL (32.0-36.0); MEAN CORPUSCULAR VOLUME 85 fl (80-97); MONOCYTES % (AUTO) 12.8 % (3-13); PLATELET COUNT 563 10^3/uL (150-450); RED BLOOD COUNT 3.04 10^6/uL (3.72-5.28); SEGMENTED NEUTROPHILS % (AUTO) 76.9 % (42-78); TOTAL CELLS COUNTED % (AUTO) 100 %; WHITE BLOOD COUNT 5.6 10^3/uL (4.0-10.5)
[2020-01-17] MEDS ORDERED: IMATINIB MESYLATE PO SCH (16:45)
[2020-01-17] MEDS ORDERED: (PENDING PHARMACY ID) (Duloxetine Hcl [Duloxetine Hcl] 60 MG) PO SCH (16:45)
[2020-01-17] MEDS ORDERED: (PENDING PHARMACY ID) (Ferrous Gluconate [Ferrous Gluconate] 324 MG) PO SCH (16:45)
[2020-01-17] MEDS ORDERED: (PENDING PHARMACY ID) (Olmesartan/Hydrochlorothiazide [Olmesartan-Hctz 40-25 Mg Tab] 1 EAC PO SCH (16:45)
[2020-01-17] MEDS ORDERED: FERROUS SULFATE 325 MG TABLET PO SCH (17:00)
[2020-01-17] MEDS: DULOXETINE HCL 30 MG CAPSULE.DR PO SCH (17:38)
[2020-01-17] MEDS: HYDROCHLOROTHIAZIDE 25 MG TABLET PO SCH (17:38)
[2020-01-17] MEDS: ASPIRIN 325 MG TABLET PO SCH (17:39)
[2020-01-17] MEDS: LOSARTAN POTASSIUM 50 MG TABLET PO SCH (17:39)
[2020-01-17] MEDS: LEVOTHYROXINE SODIUM 0.05 MG TABLET PO SCH (17:47)
--- NOTE | 2020-01-17 20:09 | PDOC H&P ---
History of Present Illness Admission Date/PCP: 01/17/20 03:21 NADEME GAMBINO MD History of Present Illness: DAVID MANUEL is a 84 year old female, Patient is well-known to me she has a history of gastrointestinal stromal tumor, malignant, history of colon cancer, history of type 2 diabetes mellitus, hypothyroidism, she could emergency room for evaluation of shortness of breath and severe fatigue, in the emergency room she was found to have severe anemia with hemoglobin of 6.She recently was evaluated in the office and she had blood work the hemogram and return demonstrated hemoglobin of 11 so clearly this is blood loss that is of recent onset on direct questioning she admitted to passage of black stool. She also recently had CT scan of the chest abdomen and pelvis with IV contrast on January 15, 2020 CT scan showed consolidation in the lung bases. There is some linear atelectasis in the right upper lobe as well also found was a persistent abnormal attenuation throughout the majority of the right lobe of the liver. The lesion in the left lobe has increased in size and now measures 5.7 cm in greatest diameter compared to 2.2 cm on previous exams. There is a new three-point recently lesion in the inferior right lobe of the liver. There is heterogeneous attenuation in the spleen the pancreas is atrophic absent gallbladder and the peritoneal cavity there is a large heterogeneous enhancing mass centered in the pelvis the mass has increased in size with large component now extending into the right lower quadrant adjacent to the anterior abdominal wall there is also increasing ascites throughout the abdomen as well there are scattered peritoneal implants the CAT scan is consistent with progressive disease patient is being followed by oncology Past Medical History Cardiac Medical History: Reports: Atrial Fibrillation, Hyperlipidema, Hypertension Endocrine Medical History: Reports: Diabetes Mellitus Type 2 Malignancy Medical History: Reports: Colorectal Cancer - and GIST, Other - Gastrointestinal stromal tumor GI Medical History: Reports: Gastroesophageal Reflux Disease Musculoskeltal Medical History: Reports: Arthritis Psychiatric Medical History: Reports: Depression Hematology: Reports: Anemia Past Surgical History Past Surgical History: Reports: Appendectomy, Hysterectomy Social History Lives with: Family Smoking Status: Former Smoker Electronic Cigarette use?: No Number of Years Smokin Frequency of Alcohol Use: None Hx Recreational Drug Use: No Drugs: None Hx Prescription Drug Abuse: No Family History Family History: None Parental Family History Reviewed: Yes Children Family History Reviewed: Yes Sibling(s) Family History Reviewed.: Yes Medication/Allergy Home Medications: Aspirin [Aspirin 325 mg Tablet] 325 mg PO DAILY 01/17/20 Atenolol [Tenormin] 25 mg PO QHS 01/17/20 Duloxetine HCl 60 mg PO DAILY 01/17/20 Ergocalciferol (Vitamin D2) [Vitamin D2] 50,000 unit PO WE@1000 01/17/20 Esomeprazole Magnesium 40 mg PO QHS 01/17/20 Ferrous Gluconate 324 mg PO DAILY 01/17/20 Imatinib Mesylate 800 mg PO DAILY 01/17/20 Levothyroxine Sodium [Synthroid 50 Mcg Tablet] 50 mcg PO Q6AM 01/17/20 Metformin HCl 500 mg PO DAILY 01/17/20 Olmesartan/Hydrochlorothiazide [Olmesartan-Hctz 40-25 mg Tab] 1 each PO DAILY 01/17/20 Allergies/Adverse Reactions: lisinopril [From Zestril] Allergy (Intermediate, Verified 01/17/20 00:36) Edema Review of Systems Constitutional: PRESENT: fatigue Eyes: ABSENT: visual disturbances Ears: ABSENT: hearing changes Cardiovascular: ABSENT: chest pain, dyspnea on exertion, edema, orthropnea, palpitations Respiratory: ABSENT: cough, hemoptysis Gastrointestinal: PRESENT: melena Genitourinary: ABSENT: dysuria, hematuria Musculoskeletal: PRESENT: joint swelling Integumentary: ABSENT: rash, wounds Neurological: ABSENT: abnormal gait, abnormal speech, confusion, dizziness, focal weakness, syncope Psychiatric: ABSENT: anxiety, depression, homidical ideation, suicidal ideation Endocrine: ABSENT: cold intolerance, heat intolerance, menstrual abnormalities, polydipsia, polyuria Hematologic/Lymphatic: ABSENT: easy bleeding, easy bruising, lymphadenopathy Physical Exam Vital Signs: Temp Pulse Resp BP Pulse Ox 98.5 F 99 18 152/62 H 99 01/17/20 16:00 01/17/20 19:00 01/17/20 16:00 01/17/20 16:00 01/17/20 16:00 Intake & Output 01/16/20 01/17/20 01/18/20 06:59 06:59 06:59 Intake Total 0 850 Output Total 620 1100 Balance -620 -250 Weight 86.1 kg General appearance: PRESENT: obese Eye exam: PRESENT: conjunctiva pale, PERRLA Ear exam: PRESENT: normal external ear exam Mouth exam: PRESENT: moist, tongue midline Neck exam: PRESENT: full ROM Respiratory exam: PRESENT: clear to auscultation cabrera Cardiovascular exam: PRESENT: RRR, +S1, +S2 Vascular exam: PRESENT: normal capillary refill GI/Abdominal exam: PRESENT: normal bowel sounds, soft Rectal exam: PRESENT: deferred Neurological exam: PRESENT: alert, CN II-XII grossly intact Psychiatric exam: PRESENT: appropriate affect, normal mood Skin exam: PRESENT: dry, intact, warm Results Laboratory Results: 01/17/20 15:12 01/17/20 00:57 01/17/20 01/17/20 01/17/20 00:57 00:57 01:50 WBC 5.9 RBC 2.35 L Hgb 6.8 L Hct 20.3 L MCV 87 MCH 29.0 MCHC 33.5 RDW 15.5 H Plt Count 558 H Seg Neutrophils % 72.6 Retic Count (auto) Sodium 133.4 L Potassium 3.7 Chloride 98 Carbon Dioxide 26 Anion Gap 9 BUN 12 Creatinine 0.78 Est GFR ( Amer) > 60 Glucose 125 H Calcium 8.8 Iron TIBC % Saturation Ferritin Total Bilirubin 0.7 AST 29 Alkaline Phosphatase 115 Total Protein 7.1 Albumin 3.1 L Vitamin B12 Folate Urine Color Urine Appearance Urine pH Ur Specific [place] Urine Protein Urine Glucose (UA) Urine Ketones Urine Blood Urine Nitrite Ur Leukocyte Esterase Urine WBC (Auto) Urine RBC (Auto) Blood Type O POSITIVE Antibody Screen NEGATIVE 01/17/20 01/17/20 01/17/20 03:42 08:24 08:24 WBC 5.6 RBC 2.98 L Hgb 8.7 L Hct 25.4 L MCV 85 MCH 29.3 MCHC 34.3 RDW 15.2 H Plt Count 582 H Seg Neutrophils % 79.3 H Retic Count (auto) 1.86 Sodium Potassium Chloride Carbon Dioxide Anion Gap BUN Creatinine Est GFR ( Amer) Glucose Calcium Iron 34.0 L TIBC 245 L % Saturation 14 Ferritin 1220.00 H Total Bilirubin AST Alkaline Phosphatase Total Protein Albumin Vitamin B12 254.0 Folate 4.71 Urine Color YELLOW Urine Appearance SLIGHTLY-CLOUDY Urine pH 7.0 Ur Specific [place] 1.013 Urine Protein 100 H Urine Glucose (UA) NEGATIVE Urine Ketones NEGATIVE Urine Blood SMALL H Urine Nitrite NEGATIVE Ur Leukocyte Esterase TRACE H Urine WBC (Auto) 12 Urine RBC (Auto) 2 Blood Type Antibody Screen 01/17/20 15:12 WBC 5.6 RBC 3.04 L Hgb 9.0 L Hct 25.9 L MCV 85 MCH 29.6 MCHC 34.7 RDW 15.0 H Plt Count 563 H Seg Neutrophils % 76.9 Retic Count (auto) Sodium Potassium Chloride Carbon Dioxide Anion Gap BUN Creatinine Est GFR ( Amer) Glucose Calcium Iron TIBC % Saturation Ferritin Total Bilirubin AST Alkaline Phosphatase Total Protein Albumin Vitamin B12 Folate Urine Color Urine Appearance Urine pH Ur Specific [place] Urine Protein Urine Glucose (UA) Urine Ketones Urine Blood Urine Nitrite Ur Leukocyte Esterase Urine WBC (Auto) Urine RBC (Auto) Blood Type Antibody Screen 01/17/20 01/17/20 00:57 00:57 CK-MB (CK-2) 0.43 Troponin I < 0.012 NT-Pro-B Natriuret Pep 1830 H Impressions: Chest X-Ray 01/17/20 00:39 IMPRESSION: No acute finding. copyright 2010 [employer]- All Rights Reserved Assessment & Plan - Diagnosis (1) Anemia due to acute blood loss Is this a current diagnosis for this admission?: Yes Plan: Transfused with red blood cells, consult GI for endoscopy (2) Acute gastrointestinal hemorrhage Is this a current diagnosis for this admission?: Yes Plan: She admitted to passing black stool suggesting upper GI source for the bleed (3) GIST (gastrointestinal stroma tumor), malignant, colon Is this a current diagnosis for this admission?: Yes Plan: Oncology following Dr. 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
[2020-01-17] MEDS: ATENOLOL 50 MG TABLET PO SCH (21:27)
[2020-01-17] MEDS: PANTOPRAZOLE SODIUM 40 MG TABLET.DR PO SCH (21:27)
[2020-01-17] MEDS ORDERED: (PENDING PHARMACY ID) (Atenolol [Tenormin] 25 MG) PO SCH (22:00)
[2020-01-17] MEDS ORDERED: (PENDING PHARMACY ID) (Esomeprazole Magnesium [Esomeprazole Magnesium] 40 MG) PO SCH (22:00)
[2020-01-18] MEDS: LEVOTHYROXINE SODIUM 0.05 MG TABLET PO SCH (06:17)
[2020-01-18] MEDS: INSULIN LISPRO 100 UNIT/ML 3 ML VIAL SUBCUT SCH ×4 (07:47→22:21)
--- NOTE | 2020-01-18 08:17 | PDOC PROGRESS REPORT ---
Subjective Progress Note for:: 01/18/20 Subjective:: Patient states that she is feeling better. Getting her strength back. NO new complaints this morning. ROS: She denies dyspnea or abdominal pain. Reason For Visit: ANEMIA,SHORTNESS OF BREATH Physical Exam Vital Signs: Temp Pulse Resp BP Pulse Ox 98.4 F 85 19 159/63 H 94 01/17/20 20:19 01/18/20 07:00 01/17/20 20:19 01/18/20 00:54 01/18/20 00:54 Intake & Output 01/17/20 01/18/20 01/19/20 06:59 06:59 06:59 Intake Total 0 850 Output Total 620 1600 Balance -620 -750 Weight 86.1 kg 83.4 kg General appearance: PRESENT: no acute distress, well-developed, well-nourished Head exam: PRESENT: normocephalic Eye exam: PRESENT: EOMI Respiratory exam: PRESENT: unlabored Neurological exam: PRESENT: alert, awake Psychiatric exam: PRESENT: appropriate affect Skin exam: PRESENT: normal color Results Laboratory Results: 01/17/20 15:12 01/17/20 00:57 01/17/20 01/17/20 01/17/20 01:50 08:24 08:24 WBC 5.6 RBC 2.98 L Hgb 8.7 L Hct 25.4 L MCV 85 MCH 29.3 MCHC 34.3 RDW 15.2 H Plt Count 582 H Seg Neutrophils % 79.3 H Retic Count (auto) 1.86 Iron 34.0 L TIBC 245 L % Saturation 14 Ferritin 1220.00 H Vitamin B12 254.0 Folate 4.71 Blood Type O POSITIVE Antibody Screen NEGATIVE 01/17/20 15:12 WBC 5.6 RBC 3.04 L Hgb 9.0 L Hct 25.9 L MCV 85 MCH 29.6 MCHC 34.7 RDW 15.0 H Plt Count 563 H Seg Neutrophils % 76.9 Retic Count (auto) Iron TIBC % Saturation Ferritin Vitamin B12 Folate Blood Type Antibody Screen 01/17/20 01/17/20 00:57 00:57 CK-MB (CK-2) 0.43 Troponin I < 0.012 NT-Pro-B Natriuret Pep 1830 H Impressions: Chest X-Ray 01/17/20 00:39 IMPRESSION: No acute finding. copyright 2011 [employer]- All Rights Reserved Assessment & Plan - Diagnosis (1) GIST (gastrointestinal stromal tumor), malignant Is this a current diagnosis for this admission?: Yes Plan: Gleevec is no longer effective. I have ordered Sutent 37.5 mg po daily to be started, but it may take a few days to get this medication. Once it is available, will start patient on this. I have explained the need to change drugs to the patient and discussed the fact that there may be additional side effects with this medication, but we will try to keep these to a minimum. Sandip garg agrees to start the new chemo. (2) Anemia Qualifiers: Other causes of anemia: chronic disease, neoplastic Is this a current diagnosis for this admission?: Yes Plan: Her anemia is most likely due to her cancer. There is no evidence of iron deficiency or GI blood loss. Agree with continued transfusion support. No oral iron is indicated. Her ferritin is actually too high. Hopefully, this will improve after she is started on the new chemo. - Time Time Spent with patient: 15-24 minutes - Plan Summary Plan Summary: I will defer any further work-up to Dr. Oh, but she is OK for discharge from my standpoint and I will follow her labs in my office.
[2020-01-18] MEDS: LOSARTAN POTASSIUM 50 MG TABLET PO SCH (09:36)
[2020-01-18] MEDS: ASPIRIN 325 MG TABLET PO SCH (09:36)
[2020-01-18] MEDS: HYDROCHLOROTHIAZIDE 25 MG TABLET PO SCH (09:36)
[2020-01-18] MEDS: DULOXETINE HCL 30 MG CAPSULE.DR PO SCH (09:36)
[2020-01-18] MEDS: METFORMIN HCL 500 MG TABLET PO SCH (09:37)
--- NOTE | 2020-01-18 11:59 | PDOC CONSULTATION ---
Consultation Consult Date: 01/18/20 Provider Consulted: SAM VINCENT Consult reason:: Black stool, patient required EGD History of Present Illness Admission Date/PCP: 01/17/20 03:21 NADEEM GAMBINO MD History of Present Illness: DAVID MANUEL is a 84 year old female I am asked to see this patient she is being admitted, she is followed by Oncology and is noted to have probable peritoneal disease however when she was admitted, she was noted to be anemic she does admit to black stool GI is consulted to perform EGD rule out for PUD patient says appetite has been on the poor side denies any dysphagia there is some nausea Past Medical History Cardiac Medical History: Reports: Atrial Fibrillation, Hyperlipidema, Hypertension Denies: Myocardial Infarction Pulmonary Medical History: Denies: Asthma, Bronchitis, Chronic Obstructive Pulmonary Disease (COPD) - WEARS CPAP, Pneumonia Neurological Medical History: Denies: Seizures Endocrine Medical History: Reports: Diabetes Mellitus Type 2 Malignancy Medical History: Reports: Colorectal Cancer - and GIST, Other - Gastrointestinal stromal tumor GI Medical History: Reports: Gastroesophageal Reflux Disease Musculoskeltal Medical History: Reports: Arthritis Psychiatric Medical History: Reports: Depression Hematology: Reports: Anemia Denies: Sickle Cell Disease Past Surgical History Past Surgical History: Reports: Appendectomy, Hysterectomy Social History Lives with: Family Smoking Status: Former Smoker Electronic Cigarette use?: No Number of Years Smokin Frequency of Alcohol Use: None Hx Recreational Drug Use: No Drugs: None Hx Prescription Drug Abuse: No Family History Family History: None Parental Family History Reviewed: Yes Children Family History Reviewed: Unknown Sibling(s) Family History Reviewed.: Unknown Medication/Allergy Home Medications: Aspirin [Aspirin 325 mg Tablet] 325 mg PO DAILY 01/17/20 Atenolol [Tenormin] 25 mg PO QHS 01/17/20 Duloxetine HCl 60 mg PO DAILY 01/17/20 Ergocalciferol (Vitamin D2) [Vitamin D2] 50,000 unit PO WE@1000 01/17/20 Esomeprazole Magnesium 40 mg PO QHS 01/17/20 Ferrous Gluconate 324 mg PO DAILY 01/17/20 Imatinib Mesylate 800 mg PO DAILY 01/17/20 Levothyroxine Sodium [Synthroid 50 Mcg Tablet] 50 mcg PO Q6AM 01/17/20 Metformin HCl 500 mg PO DAILY 01/17/20 Olmesartan/Hydrochlorothiazide [Olmesartan-Hctz 40-25 mg Tab] 1 each PO DAILY 01/17/20 Allergies/Adverse Reactions: lisinopril [From Zestril] Allergy (Intermediate, Verified 01/17/20 00:36) Edema Review of Systems Constitutional: ABSENT: fever(s), headache(s), night sweats, weakness Eyes: ABSENT: visual disturbances Ears: ABSENT: hearing changes Cardiovascular: ABSENT: edema, orthropnea, palpitations Respiratory: ABSENT: hemoptysis Gastrointestinal: PRESENT: melena, nausea. ABSENT: hematemesis, hematochezia Genitourinary: ABSENT: dysuria, hematuria Musculoskeletal: ABSENT: joint swelling Integumentary: ABSENT: pruritus Neurological: ABSENT: syncope, tingling, tremor(s) Endocrine: ABSENT: polydipsia, polyphagia, polyuria Hematologic/Lymphatic: ABSENT: easy bruising Physical Exam Vital Signs: Temp Pulse Resp BP Pulse Ox 98.4 F 86 16 151/65 H 92 01/18/20 08:07 01/18/20 08:07 01/18/20 08:07 01/18/20 08:07 01/18/20 08:07 Intake & Output 01/17/20 01/18/20 01/19/20 06:59 06:59 06:59 Intake Total 0 850 Output Total 620 1600 Balance -620 -750 Weight 86.1 kg 83.4 kg General appearance: PRESENT: mild distress Head exam: PRESENT: atraumatic, normocephalic Eye exam: PRESENT: EOMI, PERRLA. ABSENT: nystagmus, scleral icterus Mouth exam: PRESENT: moist, neck supple Throat exam: ABSENT: tonsillar exudate, tonsillogmegaly Respiratory exam: PRESENT: symmetrical, unlabored. ABSENT: tachypnea, wheezes Cardiovascular exam: PRESENT: RRR, +S1, +S2 GI/Abdominal exam: PRESENT: soft. ABSENT: rebound, rigid, tenderness Extremities exam: ABSENT: joint swelling Musculoskeletal exam: PRESENT: full ROM Neurological exam: PRESENT: oriented to time, oriented to situation, CN II-XII grossly intact Focused psych exam: ABSENT: restlessness Skin exam: PRESENT: normal color. ABSENT: mottled, pallor, urticaria, vesicles Results Laboratory Results: 01/17/20 15:12 01/17/20 00:57 01/17/20 01/17/20 08:24 15:12 WBC 5.6 RBC 3.04 L Hgb 9.0 L Hct 25.9 L MCV 85 MCH 29.6 MCHC 34.7 RDW 15.0 H Plt Count 563 H Seg Neutrophils % 76.9 Iron 34.0 L TIBC 245 L % Saturation 14 Ferritin 1220.00 H Vitamin B12 254.0 Folate 4.71 01/17/20 01/17/20 00:57 00:57 CK-MB (CK-2) 0.43 Troponin I < 0.012 NT-Pro-B Natriuret Pep 1830 H Impressions: Chest X-Ray 01/17/20 00:39 IMPRESSION: No acute finding. copyright 2010 [employer]- All Rights Reserved Assessment & Plan - Diagnosis (1) Anemia due to acute blood loss Is this a current diagnosis for this admission?: Yes Plan: patient does have black stools and presents with anemia will need EGD Risks, benefits and alternatives are discussed with the patient in detail further recommendations to follow will schedule for 01/19/20 - Time Time Spent: 50 to 70 Minutes
[2020-01-18] MEDS ORDERED: BISACODYL 5 MG TABEC PO ONE (16:45)
--- NOTE | 2020-01-18 21:08 | PDOC PROGRESS REPORT ---
Subjective Progress Note for:: 01/18/20 Subjective:: Patient alert oriented scheduled for EGD tomorrow Reason For Visit: ANEMIA,SHORTNESS OF BREATH Physical Exam Vital Signs: Temp Pulse Resp BP Pulse Ox 98.5 F 92 16 163/66 H 100 01/18/20 19:20 01/18/20 19:20 01/18/20 19:20 01/18/20 19:20 01/18/20 19:20 Intake & Output 01/17/20 01/18/20 01/19/20 06:59 06:59 06:59 Intake Total 0 850 360 Output Total 620 1600 500 Balance -620 -750 -140 Weight 86.1 kg 83.4 kg General appearance: PRESENT: no acute distress Eye exam: PRESENT: PERRLA Respiratory exam: PRESENT: clear to auscultation cabrera Cardiovascular exam: PRESENT: +S1, +S2 GI/Abdominal exam: PRESENT: soft Results Laboratory Results: 01/17/20 15:12 01/17/20 00:57 01/17/20 01/17/20 00:57 00:57 CK-MB (CK-2) 0.43 Troponin I < 0.012 NT-Pro-B Natriuret Pep 1830 H Impressions: Chest X-Ray 01/17/20 00:39 IMPRESSION: No acute finding. copyright 2011 [employer]- All Rights Reserved Assessment & Plan - Diagnosis (1) Anemia due to acute blood loss Is this a current diagnosis for this admission?: Yes Plan: Patient scheduled for EGD (2) Acute gastrointestinal hemorrhage Is this a current diagnosis for this admission?: Yes (3) GIST (gastrointestinal stroma tumor), malignant, colon Is this a current diagnosis for this admission?: Yes (4) Type 2 diabetes mellitus Qualifiers: Diabetes mellitus penitentiary insulin use: without penitentiary use Diabetes mellitus complication status: without complication Qualified Code(s): E11.9 - Type 2 diabetes mellitus without complications Is this a current diagnosis for this admission?: Yes - Time Time Spent with patient: 15-24 minutes Level of Care: IMCU
[2020-01-18] MEDS: ATENOLOL 50 MG TABLET PO SCH (21:30)
[2020-01-18] MEDS: PANTOPRAZOLE SODIUM 40 MG TABLET.DR PO SCH (21:31)
[2020-01-19] MEDS: LEVOTHYROXINE SODIUM 0.05 MG TABLET PO SCH (05:17)
[2020-01-19] MEDS: INSULIN LISPRO 100 UNIT/ML 3 ML VIAL SUBCUT SCH ×4 (08:24→22:21)
[2020-01-19] MEDS: METFORMIN HCL 500 MG TABLET PO SCH (09:44)
[2020-01-19] MEDS: LOSARTAN POTASSIUM 50 MG TABLET PO SCH (09:44)
[2020-01-19] MEDS: DULOXETINE HCL 30 MG CAPSULE.DR PO SCH (09:44)
[2020-01-19] MEDS: HYDROCHLOROTHIAZIDE 25 MG TABLET PO SCH (09:44)
[2020-01-19] MEDS: ASPIRIN 325 MG TABLET PO SCH (09:44)
[2020-01-19] MEDS ORDERED: ERGOCALCIFEROL (VITAMIN D2) 50000 UNIT (1.25 MG) CAPSULE PO SCH (10:00)
[2020-01-19] MEDS ORDERED: PROPOFOL INJ 200 MG/20 ML VIAL IV ONE (12:45)
[2020-01-19] MEDS ORDERED: DIPHENHYDRAMINE HCL 50 MG/ML VIAL IV PRN (13:14)
--- NOTE | 2020-01-19 13:21 | Operative Report ---
Operative Report DATE OF SURGERY: 01/19/20 Operative Report: The risks benefits and alternatives of the procedure explained to the patient in detail and informed consent is obtained.A GIF Olympus video scope was inserted into the patient's mouth and hypopharynx, the esophagus is identified intubated and insufflated ,the scope was then advanced through the esophagus stomach and duodenum, retroflexion maneuver is done, the esophagus stomach and first and second portions of the duodenum examined PREOPERATIVE DIAGNOSIS: Coffee-ground emesis POSTOPERATIVE DIAGNOSIS: Gastritis status post biopsy. Hiatal hernia. No active bleeding noted OPERATION: EGD with biopsy SURGEON: SAM VINCENT ANESTHESIA: LMAC TISSUE REMOVED OR ALTERED: As noted above. COMPLICATIONS: None. ESTIMATED BLOOD LOSS: None. INTRAOPERATIVE FINDINGS: As noted above. PROCEDURE: Patient tolerated the procedure well. No immediate postprocedure complications are noted. Patient sent to recovery in good condition. She sent back to her room Resume regular diet Resume previous activity level We will follow-up on biopsy
--- NOTE | 2020-01-19 18:21 | PDOC PROGRESS REPORT ---
Subjective Progress Note for:: 01/19/20 Subjective:: Patient seen by the bedside, EGD negative, hopefully discharge home tomorrow to follow with oncology Dr. Rowland Reason For Visit: ANEMIA,SHORTNESS OF BREATH Physical Exam Vital Signs: Temp Pulse Resp BP Pulse Ox 97.4 F 89 24 H 143/53 H 97 01/19/20 15:50 01/19/20 15:50 01/19/20 15:50 01/19/20 15:50 01/19/20 16:08 Intake & Output 01/18/20 01/19/20 01/20/20 06:59 06:59 06:59 Intake Total 850 620 300 Output Total 1600 900 4 Balance -750 -280 296 Weight 83.4 kg 85 kg General appearance: PRESENT: no acute distress Eye exam: PRESENT: PERRLA Respiratory exam: PRESENT: clear to auscultation cabrera Cardiovascular exam: PRESENT: +S1, +S2 GI/Abdominal exam: PRESENT: soft Results Laboratory Results: 01/17/20 15:12 01/17/20 00:57 01/17/20 01/17/20 00:57 00:57 CK-MB (CK-2) 0.43 Troponin I < 0.012 NT-Pro-B Natriuret Pep 1830 H Impressions: Chest X-Ray 01/17/20 00:39 IMPRESSION: No acute finding. copyright 2010 [employer]- All Rights Reserved Assessment & Plan - Diagnosis (1) Anemia due to acute blood loss Is this a current diagnosis for this admission?: Yes (2) Acute gastrointestinal hemorrhage Is this a current diagnosis for this admission?: Yes (3) GIST (gastrointestinal stroma tumor), malignant, colon Is this a current diagnosis for this admission?: Yes (4) Type 2 diabetes mellitus Qualifiers: Diabetes mellitus leasing specialist insulin use: without leasing specialist use Diabetes mellitus complication status: without complication Qualified Code(s): E11.9 - Type 2 diabetes mellitus without complications Is this a current diagnosis for this admission?: Yes - Time Time Spent with patient: 25-34 minutes Level of Care: MEDICAL
[2020-01-19] MEDS: ATENOLOL 50 MG TABLET PO SCH (22:22)
[2020-01-19] MEDS: PANTOPRAZOLE SODIUM 40 MG TABLET.DR PO SCH (22:22)
[2020-01-20] MEDS: LEVOTHYROXINE SODIUM 0.05 MG TABLET PO SCH (05:55)
--- NOTE | 2020-01-20 08:22 | PDOC PROGRESS REPORT ---
Subjective Progress Note for:: 01/20/20 Subjective:: Patient states that she is very weak, as she has not been out of bed to walk since admission. She is worried about going home, as she will be alone with no one to help her. No other complaints today. Reason For Visit: ANEMIA,SHORTNESS OF BREATH Physical Exam Vital Signs: Temp Pulse Resp BP Pulse Ox 98.4 F 76 18 148/59 H 100 01/20/20 00:06 01/20/20 02:00 01/20/20 00:06 01/20/20 00:06 01/20/20 00:06 Intake & Output 01/19/20 01/20/20 01/21/20 06:59 06:59 06:59 Intake Total 620 680 Output Total 900 254 Balance -280 426 Weight 85 kg 85 kg General appearance: PRESENT: no acute distress, well-developed, well-nourished Head exam: PRESENT: normocephalic Eye exam: PRESENT: EOMI Respiratory exam: PRESENT: unlabored Neurological exam: PRESENT: alert, awake Psychiatric exam: PRESENT: appropriate affect Skin exam: PRESENT: normal color Results Laboratory Results: 01/17/20 15:12 01/17/20 00:57 01/17/20 01/17/20 00:57 00:57 CK-MB (CK-2) 0.43 Troponin I < 0.012 NT-Pro-B Natriuret Pep 1830 H Impressions: Chest X-Ray 01/17/20 00:39 IMPRESSION: No acute finding. copyright 2010 [employer]- All Rights Reserved Assessment & Plan - Diagnosis (1) GIST (gastrointestinal stromal tumor), malignant Is this a current diagnosis for this admission?: Yes Plan: Sutent has been ordered and will be started MITCH. No further Gleevec recomme nded. (2) Anemia Qualifiers: Other causes of anemia: chronic disease, neoplastic Is this a current diagnosis for this admission?: Yes Plan: Most likely due to cancer and chemotherapy treatments. EGD was negative for bleeding. Stool has been negative for occult blood. Will continue to watch. Hopefully this will improve after new medication is started for the cancer. Continue transfusion support, as indicated. - Time Time Spent with patient: Less than 15 minutes
[2020-01-20] MEDS: INSULIN LISPRO 100 UNIT/ML 3 ML VIAL SUBCUT SCH ×4 (09:19→22:25)
[2020-01-20] MEDS: ASPIRIN 325 MG TABLET PO SCH (09:22)
[2020-01-20] MEDS: LOSARTAN POTASSIUM 50 MG TABLET PO SCH (09:22)
[2020-01-20] MEDS: HYDROCHLOROTHIAZIDE 25 MG TABLET PO SCH (09:22)
[2020-01-20] MEDS: METFORMIN HCL 500 MG TABLET PO SCH (09:22)
[2020-01-20] MEDS: DULOXETINE HCL 30 MG CAPSULE.DR PO SCH (09:23)
--- NOTE | 2020-01-20 21:05 | PDOC PROGRESS REPORT ---
Subjective Progress Note for:: 01/20/20 Subjective:: Patient seen by the bedside, EGD negative, hopefully discharge home tomorrow to follow with oncology Dr. Rowland Reason For Visit: ANEMIA,SHORTNESS OF BREATH Physical Exam Vital Signs: Temp Pulse Resp BP Pulse Ox 97.7 F 86 18 157/56 H 93 01/20/20 19:12 01/20/20 19:12 01/20/20 19:12 01/20/20 19:12 01/20/20 19:12 Intake & Output 01/19/20 01/20/20 01/21/20 06:59 06:59 06:59 Intake Total 620 680 540 Output Total 900 254 100 Balance -280 426 440 Weight 85 kg 85 kg General appearance: PRESENT: no acute distress Eye exam: PRESENT: PERRLA Respiratory exam: PRESENT: clear to auscultation cabrera Cardiovascular exam: PRESENT: +S1, +S2 GI/Abdominal exam: PRESENT: soft Results Laboratory Results: 01/17/20 15:12 01/17/20 00:57 01/17/20 01/17/20 00:57 00:57 CK-MB (CK-2) 0.43 Troponin I < 0.012 NT-Pro-B Natriuret Pep 1830 H Impressions: Chest X-Ray 01/17/20 00:39 IMPRESSION: No acute finding. copyright 2011 [employer]- All Rights Reserved Assessment & Plan - Diagnosis (1) Anemia due to acute blood loss Is this a current diagnosis for this admission?: Yes (2) Acute gastrointestinal hemorrhage Is this a current diagnosis for this admission?: Yes (3) GIST (gastrointestinal stroma tumor), malignant, colon Is this a current diagnosis for this admission?: Yes (4) Type 2 diabetes mellitus Qualifiers: Diabetes mellitus buttermaker insulin use: without buttermaker use Diabetes m ellitus complication status: without complication Qualified Code(s): E11.9 - Type 2 diabetes mellitus without complications Is this a current diagnosis for this admission?: Yes - Time Time Spent with patient: 15-24 minutes Level of Care: MEDICAL
--- NOTE | 2020-01-20 21:06 | PDOC DISCHARGE SUMMARY ---
Impression - Admit/DC Date/PCP Admission Date/Primary Care Provider: 01/17/20 03:21 NADEEM GAMBINO MD Discharge Date: 01/21/20 - Discharge Diagnosis (1) Anemia due to acute blood loss Is this a current diagnosis for this admission?: Yes (2) Acute gastrointestinal hemorrhage Is this a current diagnosis for this admission?: Yes (3) GIST (gastrointestinal stroma tumor), malignant, colon Is this a current diagnosis for this admission?: Yes (4) Type 2 diabetes mellitus Is this a current diagnosis for this admission?: Yes - Additional Information Resuscitation Status: Full Code Referrals: NADEEM GAMBINO MD [Primary Care Provider] - 02/11/20 1:45 pm () Home Medications: Aspirin [Aspirin 325 mg Tablet] 325 mg PO DAILY 01/17/20 Atenolol [Tenormin] 25 mg PO QHS 01/17/20 Duloxetine HCl 60 mg PO DAILY 01/17/20 Ergocalciferol (Vitamin D2) [Vitamin D2] 50,000 unit PO WE@1000 01/17/20 Esomeprazole Magnesium 40 mg PO QHS 01/17/20 Ferrous Gluconate 324 mg PO DAILY 01/17/20 Imatinib Mesylate 800 mg PO DAILY 01/17/20 Levothyroxine Sodium [Synthroid 0.05 mg Tablet] 50 mcg PO Q6AM 01/17/20 Metformin HCl 500 mg PO DAILY 01/17/20 Olmesartan/Hydrochlorothiazide [Olmesartan-Hctz 40-25 mg Tab] 1 each PO DAILY 01/17/20 History of Present Illiness History of Present Illness: DAVID MANUEL is a 84 year old female, Patient is well-known to me she has a history of gastrointestinal stromal tumor, malignant, history of colon cancer, history of type 2 diabetes mellitus, hypothyroidism, she could emergency room for evaluation of shortness of breath and severe fatigue, in the emergency room she was found to have severe anemia with hemoglobin of 6.She recently was evaluated in the office and she had blood work the hemogram and return demon strated hemoglobin of 11 so clearly this is blood loss that is of recent onset on direct questioning she admitted to passage of black stool. She also recently had CT scan of the chest abdomen and pelvis with IV contrast on January 15, 2020 CT scan showed consolidation in the lung bases. There is some linear atelectasis in the right upper lobe as well also found was a persistent abnormal attenuation throughout the majority of the right lobe of the liver. The lesion in the left lobe has increased in size and now measures 5.7 cm in greatest diameter compared to 2.2 cm on previous exams. There is a new three-point recently lesion in the inferior right lobe of the liver. There is heterogeneous attenuation in the spleen the pancreas is atrophic absent gallbladder and the peritoneal cavity there is a large heterogeneous enhancing mass centered in the pelvis the mass has increased in size with large component now extending into the right lower quadrant adjacent to the anterior abdominal wall there is also increasing ascites throughout the abdomen as well there are scattered peritoneal implants the CAT scan is consistent with progressive disease patient is being followed by oncology Hospital Course Hospital Course: Patient was admitted for the management of severe anemia, hemoglobin was 6 she was transfused with red blood cells, she was seen in consultation by GI Dr. Slaughter. She admitted to the passage of melanotic stool she underwent upper endoscopy there was no active bleeding seen. CAT scan was done couple of days before admission demonstrated progression of GIST ,malignant she was seen consultation by oncology the medication Gleevec was discontinued and she was started on a new medication. Physical Exam Vital Signs: Temp Pulse Resp BP Pulse Ox 97.7 F 86 18 157/56 H 93 01/20/20 19:12 01/20/20 19:12 01/20/20 19:12 01/20/20 19:12 01/20/20 19:12 Intake & Output 01/19/20 01/20/20 01/21/20 06:59 06:59 06:59 Intake Total 620 680 540 Output Total 900 254 100 Balance -280 426 440 Weight 85 kg 85 kg General appearance: PRESENT: no acute distress Eye exam: PRESENT: PERRLA Respiratory exam: PRESENT: clear to auscultation cabrera Cardiovascular exam: PRESENT: +S1, +S2 GI/Abdominal exam: PRESENT: soft Neurological exam: PRESENT: alert Results Laboratory Results: WBC 5.6 10^3/uL (4.0-10.5) 01/17/20 15:12 RBC 3.04 10^6/uL (3.72-5.28) L 01/17/20 15:12 Hgb 9.0 g/dL (12.0-15.5) L 01/17/20 15:12 Hct 25.9 % (36.0-47.0) L 01/17/20 15:12 MCV 85 fl (80-97) 01/17/20 15:12 MCH 29.6 pg (27.0-33.4) 01/17/20 15:12 MCHC 34.7 g/dL (32.0-36.0) 01/17/20 15:12 RDW 15.0 % (11.5-14.0) H 01/17/20 15:12 Plt Count 563 10^3/uL (150-450) H 01/17/20 15:12 Lymph % (Auto) 9.1 % (13-45) L 01/17/20 15:12 [place] % (Auto) 12.8 % (3-13) 01/17/20 15:12 Eos % (Auto) 0.9 % (0-6) 01/17/20 15:12 Baso % (Auto) 0.3 % (0-2) 01/17/20 15:12 Reticulocyte # 0.055 10^6/uL (0.028-0.122) 01/17/20 08:24 Absolute Neuts (auto) 4.3 10^3/uL (1.7-8.2) 01/17/20 15:12 Absolute Lymphs (auto) 0.5 10^3/uL (0.5-4.7) 01/17/20 15:12 Absolute Monos (auto) 0.7 10^3/uL (0.1-1.4) 01/17/20 15:12 Absolute Eos (auto) 0.1 10^3/uL (0.0-0.6) 01/17/20 15:12 Absolute Basos (auto) 0.0 10^3/uL (0.0-0.2) 01/17/20 15:12 Seg Neutrophils % 76.9 % (42-78) 01/17/20 15:12 Retic Count (auto) 1.86 % (0.66-2.85) 01/17/20 08:24 PT 15.4 SEC (11.4-15.4) 01/17/20 00:57 INR 1.21 01/17/20 00:57 APTT 34.9 SEC (23.5-35.8) 01/17/20 00:57 Sodium 133.4 mmol/L (137-145) L 01/17/20 00:57 Potassium 3.7 mmol/L (3.6-5.0) 01/17/20 00:57 Chloride 98 mmol/L (98-107) 01/17/20 00:57 Carbon Dioxide 26 mmol/L (22-30) 01/17/20 00:57 Anion Gap 9 (5-19) 01/17/20 00:57 BUN 12 mg/dL (7-20) 01/17/20 00:57 Creatinine 0.78 mg/dL (0.52-1.25) 01/17/20 00:57 Est GFR ( Amer) > 60 (>60) 01/17/20 00:57 Est GFR (MDRD) Non-Af > 60 (>60) 01/17/20 00:57 Glucose 125 mg/dL (75-110) H 01/17/20 00:57 POC Glucose 114 mg/dL (70-110) H 01/20/20 16:05 Calcium 8.8 mg/dL (8.4-10.2) 01/17/20 00:57 Iron 34.0 ug/dL (37-170) L 01/17/20 08:24 TIBC 245 ug/dL (250-450) L 01/17/20 08:24 % Saturation 14 % 01/17/20 08:24 Ferritin 1220.00 ng/mL (11.1-264.0) H 01/17/20 08:24 Total Bilirubin 0.7 mg/dL (0.2-1.3) 01/17/20 00:57 Direct Bilirubin 0.2 mg/dL (0.0-0.4) 01/17/20 00:57 Neonat Total Bilirubin Not Reportable 01/17/20 00:57 Neonat Direct Bilirubin Not Reportable 01/17/20 00:57 Neonat Indirect Bili Not Reportable 01/17/20 00:57 AST 29 U/L (14-36) 01/17/20 00:57 ALT 10 U/L (<35) 01/17/20 00:57 Alkaline Phosphatase 115 U/L (38-126) 01/17/20 00:57 Lactate Dehydrogenase 335 U/L (120-246) H 07/06/20 08:24 CK-MB (CK-2) 0.43 ng/mL (<4.55) 01/17/20 00:57 Troponin I < 0.012 ng/mL 01/17/20 00:57 NT-Pro-B Natriuret Pep 1830 pg/mL (<450) H 01/17/20 00:57 Total Protein 7.1 g/dL (6.3-8.2) 01/17/20 00:57 Albumin 3.1 g/dL (3.5-5.0) L 01/17/20 00:57 Vitamin B12 254.0 pg/mL (239-931) 01/17/20 08:24 Folate 4.71 ng/mL (>2.76) 01/17/20 08:24 Urine Color YELLOW 01/17/20 03:42 Urine Appearance SLIGHTLY-CLOUDY 01/17/20 03:42 Urine pH 7.0 (5.0-9.0) 01/17/20 03:42 Ur Specific [place] 1.013 01/17/20 03:42 Urine Protein 100 mg/dL (NEGATIVE) H 01/17/20 03:42 Urine Glucose (UA) NEGATIVE mg/dL (NEGATIVE) 01/17/20 03:42 Urine Ketones NEGATIVE mg/dL (NEGATIVE) 01/17/20 03:42 Urine Blood SMALL (NEGATIVE) H 01/17/20 03:42 Urine Nitrite NEGATIVE (NEGATIVE) 01/17/20 03:42 Urine Bilirubin NEGATIVE (NEGATIVE) 01/17/20 03:42 Urine Urobilinogen 4.0 mg/dL (<2.0) H 01/17/20 03:42 Ur Leukocyte Esterase TRACE (NEGATIVE) H 01/17/20 03:42 Urine WBC (Auto) 12 /HPF 01/17/20 03:42 Urine RBC (Auto) 2 /HPF 01/17/20 03:42 Urine Bacteria (Auto) 3+ /HPF 01/17/20 03:42 Squamous Epi Cells Auto 4 /HPF 01/17/20 03:42 Urine Mucus (Auto) RARE /LPF 01/17/20 03:42 Urine Ascorbic Acid NEGATIVE (NEGATIVE) 01/17/20 03:42 POC Stool Occult Blood NEGATIVE (NEGATIVE) 01/17/20 02:17 SARS-CoV-2 (PCR) NEGATIVE (NEGATIVE) 01/19/20 10:25 Blood Type O POSITIVE 01/17/20 01:50 Antibody Screen NEGATIVE 01/17/20 01:50 Crossmatch See Detail 01/17/20 01:50 01/17/20 01/17/20 00:57 00:57 CK-MB (CK-2) 0.43 Troponin I < 0.012 NT-Pro-B Natriuret Pep 1830 H Impressions: Chest X-Ray 01/17/20 00:39 IMPRESSION: No acute finding. copyright 2010 [employer]- All Rights Reserved Stroke Is this a Stroke Patient?: No Acute Heart Failure - Is this a Heart Failure Patient?: No
[2020-01-20] MEDS: ATENOLOL 50 MG TABLET PO SCH (22:25)
[2020-01-20] MEDS: PANTOPRAZOLE SODIUM 40 MG TABLET.DR PO SCH (22:26)
[2020-01-21] MEDS: LEVOTHYROXINE SODIUM 0.05 MG TABLET PO SCH (07:00)
[2020-01-21] MEDS: INSULIN LISPRO 100 UNIT/ML 3 ML VIAL SUBCUT SCH (08:02)
[2020-01-21] MEDS: HYDROCHLOROTHIAZIDE 25 MG TABLET PO SCH (10:25)
[2020-01-21] MEDS: DULOXETINE HCL 30 MG CAPSULE.DR PO SCH (10:25)
[2020-01-21] MEDS: LOSARTAN POTASSIUM 50 MG TABLET PO SCH (10:25)
[2020-01-21] MEDS: METFORMIN HCL 500 MG TABLET PO SCH (10:26)
[2020-01-21] MEDS: ASPIRIN 325 MG TABLET PO SCH (10:26)
[2020-01-21 12:20] VITALS: BP 144/53
== END 2020-01-21 13:16 | disposition home health service (06) | DRG 375 ==
LOC: ER 00:33 → EH 03:21 → 4N 04:55
PROVIDERS: ADMIT Internal Medicine; ATTEND Internal Medicine
PROC: 30233N1 Transfusion of Nonautologous Red Blood Cells into Peripheral Vein, Percutaneous Approach (ICD-10-PCS; 2020-01-17)
PROC: 0DB68ZX Excision of Stomach, Via Natural or Artificial Opening Endoscopic, Diagnostic (ICD-10-PCS; principal; 2020-01-19 12:00)
DX: C49.A4 Gastrointestinal stromal tumor of large intestine (principal); C78.7 Secondary malignant neoplasm of liver and intrahepatic bile duct; R18.8 Other ascites; D62 Acute posthemorrhagic anemia; K92.1 Melena; D63.0 Anemia in neoplastic disease; E11.9 Type 2 diabetes mellitus without complications; E03.9 Hypothyroidism, unspecified; K21.9 Gastro-esophageal reflux disease without esophagitis; I48.91 Unspecified atrial fibrillation; K44.9 Diaphragmatic hernia without obstruction or gangrene; I10 Essential (primary) hypertension; E78.5 Hyperlipidemia, unspecified; M19.90 Unspecified osteoarthritis, unspecified site; Z88.8 Allergy status to other drugs, medicaments and biological substances; Z90.49 Acquired absence of other specified parts of digestive tract; Z79.899 Other long term (current) drug therapy; Z87.891 Personal history of nicotine dependence; Z79.82 Long term (current) use of aspirin; Z60.2 Problems related to living alone; Z03.818 Encounter for observation for suspected exposure to other biological agents ruled out; Z79.84 Long term (current) use of oral hypoglycemic drugs
CPT/HCPCS: 36415; 36430; 43239; 71045; 731; 80053; 81001; 82270; 82553; 82607; 82728; 82746; 82962; 83540; 83550; 83615; 83880; 84484; 85025; 85045; 85610; 85730; 86850; 86900; 86901; 86920; 87040; 87635; 88305; 93005; 93010; 94660; 99285; C9803; J1940; J2704; J3490; P9016

== ENCOUNTER → 2020-03-06 | Outpatient (CLI) | payer MEDICARE, OTHER ==
--- NOTE | 2020-03-06 15:10 | RADIOLOGY REPORT (SQ) ---
EXAM DESCRIPTION: VENOUS UNILATERAL LOWER IMAGES COMPLETED DATE/TIME: 03/06/2020 2:58 pm REASON FOR STUDY: LLE SWELLING R22.42 LOCALIZED SWELLING, MASS AND LUMP, LEFT LOWER LIMB COMPARISON: None. TECHNIQUE: Dynamic and static enrique scale and color images acquired of the left leg venous system. Se lected spectral images acquired with additional compression and augmentation maneuvers. The contralat eral common femoral vein and saphenofemoral junction were also imaged. Images stored on PACS. LIMITATIONS: None. FINDINGS: COMMON FEMORAL: Normal phasicity, compression and augmentation. No visualized echogenic ma terial on enrique scale. No defects on color images. FEMORAL: Normal compression and augmentation. No visualized echogenic material on enrique scale. No defe cts on color images. POPLITEAL: Normal compression, augmentation. No visualized echogenic material on enrique scale. No defec ts on color images. CALF VESSELS: Normal compression, augmentation. No visualized echogenic material on enrique scale. No de fects on color images. GSV and SSV: Normal compression, augmentation. No visualized echogenic material on enrique scale. No def ects on color images. ANY DEEP VENOUS INSUFFICIENCY: Not evaluated. ANY EVIDENCE OF POPLITEAL CYST: No. OTHER: No other significant finding. CONTRALATERAL COMMON FEMORAL VEIN AND SAPHENOFEMORAL JUNCTION: Normal phasicity, compression and augmentation. No visualized echogenic material on enrique scale. No de fects on color images. IMPRESSION: NO EVIDENCE OF DVT OR SVT IN THE LEFT LEG. TECHNICAL DOCUMENTATION: JOB ID: [id number] 2010 [employer]- All Rights Reserved Reading location - IP/workstation name: [email or web address]
== END ==
LOC: SP 13:37
PROVIDERS: ATTEND Internal Medicine
DX: R22.42 Localized swelling, mass and lump, left lower limb (principal)
CPT/HCPCS: 93971

== ENCOUNTER 2020-04-26 03:21 | Emergency (ER) | payer MEDICARE, OTHER ==
[2020-04-26 03:53] VITALS: BP 163/63
[2020-04-26] MEDS ORDERED: ACETAMINOPHEN 325 MG TABLET PO ONE (04:22)
== END 2020-04-26 06:25 | disposition left against medical advice (07) ==
LOC: ER 03:21
DX: Z53.21 Procedure and treatment not carried out due to patient leaving prior to being seen by health care provider (principal)

== ENCOUNTER → 2020-04-28 | Outpatient (CLI) | payer MEDICARE, OTHER ==
--- NOTE | 2020-04-28 16:16 | RADIOLOGY REPORT (SQ) ---
EXAM DESCRIPTION: CT CHEST WITH IMAGES COMPLETED DATE/TIME: 04/28/2020 3:50 pm REASON FOR STUDY: (C18.9)MALIGNANT NEOPLASM OF COLON, UNSPECIFIED C18.9 MALIGNANT NEOPLASM OF COLON , UNSPECIFIED C49.A2 GASTROINTESTINAL STROMAL TUMOR OF STOMACH COMPARISON: 01/12/2020 TECHNIQUE: CT scan of the chest performed using helical scanning technique with dynamic intravenous contrast injection. Patient was given oral contrast. Images reviewed with lung, soft tissue and bon e windows. Reconstructed coronal and sagittal MPR and MIP images reviewed. All images stored on PAC S. All CT scanners at this facility use dose modulation, iterative reconstruction, and/or weight based d osing when appropriate to reduce radiation dose to as low as reasonably achievable (ALARA). [facility]: Dose Right [facility]: CareDose [facility]: Dose Right [facility]: Teradose 4D [facility]: [employer] CONTRAST TYPE AND DOSE: See abdomen RENAL FUNCTION: See abdomen RADIATION DOSE: CT Rad equipment meets quality standard of care and radiation dose reduction techniq ues were employed. CTDIvol: 7.5 - 9.1 mGy. DLP: 943 mGy-cm. . LIMITATIONS: None. FINDINGS: LUNGS AND PLEURA: No opacities, nodules, masses. No pneumothorax. No effusions. HILAR AND MEDIASTINAL STRUCTURES: No identified masses or abnormal nodes. HEART AND VASCULAR STRUCTURES: No aneurysm. No dissection. Scattered coronary atherosclerosis. Nor mal heart size. HARDWARE: Left-sided double lumen at chest port with catheter tip SVC. UPPER ABDOMEN: See separate report of the CT of the abdomen. THYROID AND OTHER SOFT TISSUES: No masses. No adenopathy. BONES: No acute bony abnormality. No discrete lytic or blastic osseous lesions. Stable posterior th oracolumbar fusion hardware vertebral body spacer at T11. OTHER: No other significant finding. IMPRESSION: 1. No evidence of acute intrathoracic process. 2. No evidence of new intrathoracic metastatic disease. TECHNICAL DOCUMENTATION: JOB ID: [id number] Quality ID # 436: Final reports with documentation of one or more dose reduction techniques (e.g., Au tomated exposure control, adjustment of the mA and/or kV according to patient size, use of iterative reconstruction technique) 2010 [employer]- All Rights Reserved Reading location - IP/workstation name: [email or web address]
--- NOTE | 2020-04-28 16:33 | RADIOLOGY REPORT (SQ) ---
EXAM DESCRIPTION: CT ABD/PELVIS WITH IV ORAL IMAGES COMPLETED DATE/TIME: 04/28/2020 3:50 pm REASON FOR STUDY: (C18.9)MALIGNANT NEOPLASM OF COLON, UNSPECIFIED C18.9 MALIGNANT NEOPLASM OF COLON , UNSPECIFIED C49.A2 GASTROINTESTINAL STROMAL TUMOR OF STOMACH COMPARISON: -08/02 TECHNIQUE: CT scan of the abdomen and pelvis performed using helical scanning technique with dynamic intravenous contrast injection. Patient was given oral contrast. Images reviewed with lung, soft ti ssue, and bone windows. Reconstructed coronal and sagittal MPR images reviewed. Delayed images for ev aluation of the urinary system also acquired. All images stored on PACS. All CT scanners at this facility use dose modulation, iterative reconstruction, and/or weight based d osing when appropriate to reduce radiation dose to as low as reasonably achievable (ALARA). [facility]: Dose Right [facility]: CareDose [facility]: Dose Right [facility]: Teradose 4D [facility]: [employer] CONTRAST TYPE AND DOSE: contrast/concentration: Isovue 350.00 mmol/ml; Total Contrast Delivered: 88. 0 ml; Total Saline Delivered: 40.1 ml RENAL FUNCTION: Creatinine 1.2 RADIATION DOSE: . LIMITATIONS: None. FINDINGS: LOWER CHEST: See separate report of the CT of the chest. LIVER: Grossly stable size of the multiple enlarged hypodense heterogeneous hepatic lesions, largest within the hepatic dome. For reference left hepatic lobe lesion measures 5.2 cm, stable. No intrahe patic ductal dilation. SPLEEN: Unchanged hypoattenuation along the medial aspect of the spleen. PANCREAS: Atrophic. GALLBLADDER: No identified stones by CT criteria. No inflammatory changes to suggest cholecystitis. ADRENAL GLANDS: No significant masses or asymmetry. RIGHT KIDNEY AND URETER: No solid masses. No significant calcifications. No hydronephrosis or hyd roureter. LEFT KIDNEY AND URETER: No solid masses. No significant calcifications. No hydronephrosis or hydr oureter. AORTA AND VESSELS: Aortoiliac atherosclerosis without aneurysm. Patent celiac, SMA and bilateral roderick als. RETROPERITONEUM: No retroperitoneal adenopathy, hemorrhage or masses. BOWEL AND PERITONEAL CAVITY: Multiple peritoneal masses are again noted. Minimally decreased size of the left upper quadrant mass abutting the gastric body measuring 6.9 cm maximally (series 5, image 2 0), previously 7.6 cm. Large mass within the right hemiabdomen and pelvis. Previously referenced co mponent demonstrates mild interval decrease in size measuring 9.3 cm, previously 9.9 cm (series 5, im age 56). Multiple additional at peritoneal implants, some which demonstrate interval increase in siz e. For reference right lower quadrant peritoneal implant measures 2.0 cm, previously 1.7 cm (series 5, image 45). Retroperitoneal implant along the left paracolic gutter demonstrates minimal interval decrease in size measuring 3.1 cm (series 5, image 50), previously 4.5 cm. No new discrete masses. No evidence of free intraperitoneal gas. APPENDIX: Not identified. PELVIS: Unremarkable urinary bladder. Multiple pelvic masses as above. ABDOMINAL WALL: Evidence of prior midline laparotomy. Left gluteal intramuscular lipoma. BONES: No acute bony abnormality. Posterior thoracolumbar fusion hardware. Significant degenerative changes at the hips bilaterally. Stable L5 superior endplate deformity. OTHER: No other significant finding. IMPRESSION: 1. Multiple solid organ and peritoneal soft tissue masses compatible with metastatic di sease. Majority of the lesions demonstrate minimal interval decrease in size as detailed above. No new discrete masses. 2. Decreased ascites. 3. No other evidence of acute intra-abdominal/pelvic process. The majority of the lesions TECHNICAL DOCUMENTATION: JOB ID: [id number] Quality ID # 436: Final reports with documentation of one or more dose reduction techniques (e.g., Au tomated exposure control, adjustment of the mA and/or kV according to patient size, use of iterative reconstruction technique) 2010 [employer]- All Rights Reserved Reading location - IP/workstation name: [email or web address]
== END ==
LOC: RAD 14:44
PROVIDERS: ATTEND Internal Medicine Hematology & Oncology
DX: C18.9 Malignant neoplasm of colon, unspecified (principal); C49.A2 Gastrointestinal stromal tumor of stomach; R18.8 Other ascites
CPT/HCPCS: 71260; 74177; 82565

== ENCOUNTER → 2020-07-11 | Outpatient (CLI) | payer MEDICARE, OTHER ==
--- NOTE | 2020-07-11 15:51 | RADIOLOGY REPORT (SQ) ---
EXAM DESCRIPTION: CT CHEST WITH IMAGES COMPLETED DATE/TIME: 07/11/2020 10:17 am REASON FOR STUDY: CANCER OF COLON AND STOMACH C18.9 MALIGNANT NEOPLASM OF COLON, UNSPECIFIED C49.A2 GASTROINTESTINAL STROMAL TUMOR OF STOMACH COMPARISON: 04/28/2020 TECHNIQUE: CT scan of the chest performed using helical scanning technique with dynamic intravenous contrast injection. Images reviewed with lung, soft tissue and bone windows. Reconstructed coronal and sagittal MPR and MIP images reviewed. All images stored on PACS. All CT scanners at this facility use dose modulation, iterative reconstruction, and/or weight based d osing when appropriate to reduce radiation dose to as low as reasonably achievable (ALARA). [facility]: Dose Right [facility]: CareDose [facility]: Dose Right [facility]: Teradose 4D [facility]: [employer] CONTRAST TYPE AND DOSE: See separate report of the same date. RENAL FUNCTION: Creatinine 1.2 RADIATION DOSE: CT Rad equipment meets quality standard of care and radiation dose reduction techniq ues were employed. CTDIvol: 4.8 - 5.2 mGy. DLP: 721 mGy-cm. . LIMITATIONS: Artifact from thoracic fusion. FINDINGS: LUNGS AND PLEURA: No opacities, nodules, masses. No pneumothorax. No effusions. Dependen t mucus in the trachea. HILAR AND MEDIASTINAL STRUCTURES: No identified masses or abnormal nodes. HEART AND VASCULAR STRUCTURES: No aneurysm or dissection. No central pulmonary emboli. No pericardi al effusion. HARDWARE: None in the chest. UPPER ABDOMEN: See separate report of the CT of the abdomen. THYROID AND OTHER SOFT TISSUES: No masses. No adenopathy. BONES: Nothing acute. OTHER: Stable position of left-sided port. IMPRESSION: No evidence of metastatic disease. TECHNICAL DOCUMENTATION: JOB ID: [id number] Quality ID # 436: Final reports with documentation of one or more dose reduction techniques (e.g., Au tomated exposure control, adjustment of the mA and/or kV according to patient size, use of iterative reconstruction technique) 2010 [employer]- All Rights Reserved Reading location - IP/workstation name: [email or web address]
--- NOTE | 2020-07-11 15:59 | RADIOLOGY REPORT (SQ) ---
EXAM DESCRIPTION: CT ABD/PELVIS WITH IV ORAL IMAGES COMPLETED DATE/TIME: 07/11/2020 10:17 am REASON FOR STUDY: CANCER OF COLON AND STOMACH C18.9 MALIGNANT NEOPLASM OF COLON, UNSPECIFIED C49.A2 GASTROINTESTINAL STROMAL TUMOR OF STOMACH COMPARISON: 04/28/2020 TECHNIQUE: CT scan of the abdomen and pelvis performed using helical scanning technique with dynamic intravenous contrast injection. No oral contrast. Images reviewed with lung, soft tissue, and bone windows. Reconstructed coronal and sagittal MPR images reviewed. Delayed images for evaluation of the urinary system also acquired. All images stored on PACS. All CT scanners at this facility use dose modulation, iterative reconstruction, and/or weight based d osing when appropriate to reduce radiation dose to as low as reasonably achievable (ALARA). [facility]: Dose Right [facility]: CareDose [facility]: Dose Right [facility]: Teradose 4D [facility]: [employer] CONTRAST TYPE AND DOSE: contrast/concentration: Isovue 350.00 mmol/ml; Total Contrast Delivered: 86. 0 ml; Total Saline Delivered: 69.0 ml RENAL FUNCTION: See separate report same date. RADIATION DOSE: . LIMITATIONS: None. FINDINGS: LOWER CHEST: See separate report of the CT of the chest. LIVER: Multiple heterogeneous well-circumscribed lesions which are stable, largest right subdiaphragm atic 11.1 x 6.3 cm. No new lesions. SPLEEN: Normal size. No focal lesions. PANCREAS: No masses. No significant calcifications. No adjacent inflammation or peripancreatic fluid collections. Pancreatic duct not dilated. GALLBLADDER: No identified stones by CT criteria. No inflammatory changes to suggest cholecystitis. ADRENAL GLANDS: No significant masses or asymmetry. RIGHT KIDNEY AND URETER: No solid masses. No significant calcifications. No hydronephrosis or hyd roureter. LEFT KIDNEY AND URETER: No solid masses. No significant calcifications. No hydronephrosis or hydr oureter. AORTA AND VESSELS: No aneurysm. RETROPERITONEUM: Multiple peritoneal and retroperitoneal implants not significantly changed. e larger implants in the left upper quadrant 6.7 x 5.6 cm. Lower abdominal midline large lobulated i mplant 5.8 BY 11.3 CM. No definite new lesions. BOWEL AND PERITONEAL CAVITY: See above. Small amount of ascites which has increased since the prior. No dilated loops. APPENDIX: Not visualized. PELVIS: No mass. No free fluid. Normal bladder. ABDOMINAL WALL: No masses. No hernias. BONES: Artifact from direct lumbar fusion. Chronic compression fracture L5. OTHER: No other significant finding. IMPRESSION: 1. Multiple stable solid organ and peritoneal implants consistent with metastatic disease. 2. Slight increase in amount of ascites. TECHNICAL DOCUMENTATION: JOB ID: [id number] Quality ID # 436: Final reports with documentation of one or more dose reduction techniques (e.g., Au tomated exposure control, adjustment of the mA and/or kV according to patient size, use of iterative reconstruction technique) 2010 [employer]- All Rights Reserved Reading location - IP/workstation name: [email or web address]
== END ==
LOC: RAD 09:14
PROVIDERS: ATTEND Nurse Practitioner Family
DX: C18.9 Malignant neoplasm of colon, unspecified (principal); C49.A2 Gastrointestinal stromal tumor of stomach
CPT/HCPCS: 71260; 74177; 82565